=== PATIENT | female | born 1990 | race Caucasian/White ===

== ENCOUNTER 2018-01-08 16:56 | Inpatient (IN) ==
[2018-01-08] MEDS ORDERED: 0.9 % SODIUM CHLORIDE 1,000 ML IV ONE ×2 (17:15→18:08)
[2018-01-08 18:30] LABS: Basophils # (Auto) 0 K/mcL (0.0-0.3); Basophils % (Auto) 0.4 % (0.0-2.0); Eosinophils # (Auto) 0.1 K/mcL (0.0-0.7); Eosinophils % (Auto) 1.2 % (0.0-7.0); Granulocytes % (Auto) 64.1 % (38.0-78.0); Lymphocytes # (Auto) 1.7 K/mcL (1.5-4.8); Lymphocytes % (Auto) 28.2 % (15.5-49.0); Mean Cell Volume 85.2 fL (80.0-100.0); Mean Corpuscular HGB Conc 33.9 g/dL (31.0-36.0); Mean Corpuscular Hemoglobin 28.9 pg (26.0-34.0); Monocytes # (Auto) 0.4 K/mcL (0.1-0.9); Monocytes % (Auto) 6.1 % (1.0-12.0); Platelet Count 216 K/mcL (140-440); RBC 5.32 M/mcL (4.00-5.20)
--- NOTE | 2018-01-08 18:43 | Emergency Department Note ---
General Adult HPI - General Chief complaint: Recheck/Abnormal Lab/Rx Stated complaint: Rhabdo last week, labs drawn this am. Time Seen by Provider: 01/08/18 17:36 Source: patient, family Mode of arrival: ambulatory Limitations: no limitations - History of Present Illness HPI Narrative: 27-year-old female comes in complaining of elevated CK. 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 She felt like she never recovered from school and continued to have worsening weakness and pain with the fatigue so she went saw her doctor on December 23 and they ordered labs. The laboratory did get back to the primary care provider in time and so on December 29 she had a going to the ER at [place] was found to have elevated EKG 18,000 or so. They put her in the hospital for rhabdomyolysis and she left December 31 as it was trending down to 13,000. Should follow-up on 01 05 and he checked it again and it had gone back up to 15,000 or so. The repeated one more time and then today they checked it here at our lab at the request of Dr. Maria E Araujo there in [place]. That CMP they ordered showed an AST of 677 and ALT of 317 with otherwise normal CMP with a creatinine of 0.6 and a GFR of 127 but her CK showed 18,836-these labs were done here today as an outpatient. She was advised to come to our ER as she has been staying with her parents in [place] while she recuperates She denies any previous episodes of this nor does she have any underlying known rheumatologic conditions. She does have a rash on her thighs she says but nothing on her hands-the rash she said is just a few small papules which are sort of itchy. No family history of rheumatologic conditions either. Denies feeling ill mainly just fatigued with muscle pain. Her muscles are painful to touch only if she tries to move them - Related Data Home Medications Medication Instructions Recorded Confirmed Albuterol Sulfate [Ventolin] 1 puff INH Q4HP PRN 01/08/18 01/08/18 Amitriptyline [Elavil] 10 mg PO HS 01/08/18 01/08/18 Ethinyl Estradiol/Drospirenone 1 each PO QDAY 01/08/18 01/08/18 [Ocella 3 mg-0.03 mg Tablet] Fluticasone/Salmeterol 1 spray NS QDAY 01/08/18 01/08/18 [Fluticasone-Salmeterol 55-14] Allergies Allergy/AdvReac Type Severity Reaction Status Date / Time hydrocodone Allergy Severe Vomiting Verified 01/08/18 17:05 Review of Systems All systems ED: reviewed and negative except as stated. Past Medical History - Past Medical History Attestation: Yes: The following information was validated with the patient. Medical history: Reports: asthma, other (Irritable bowel syndrome) Surgical history ED: Reports: no surgical history - Social History smoking status: Never smoker Physical Exam No acute distress fatigued resting comfortably. Normocephalic atraumatic. Conjunctive are clear sclerae white and nonicteric. No nasal discharge or congestion. Oropharynx pink and moist. Neck is supple without lymphadenopathy or thyromegaly. Heart is regular rate and rhythm no murmur appreciated. Lungs are clear to auscultation bilaterally without wheezes rales rhonchi or respiratory distress. Abdomen is soft nontender nondistended. No pedal edema. +2 radial pulse. With active movement of the shoulders and hips she has pain resisting against gravity but no pain at rest. I do not see any rash on her hands or arms or lower legs. Alert and oriented Limitations: no limitations Course Vital Signs Temperature 97.5 F 01/08/18 16:58 Pulse Rate 112 H 01/08/18 16:58 Respiratory Rate 18 01/08/18 16:58 Blood Pressure 148/96 01/08/18 16:58 Pulse Oximetry (%) 96 01/08/18 16:58 Temperature 97.5 F 01/08/18 16:58 Pulse Rate 97 H 01/08/18 18:31 Respiratory Rate 19 01/08/18 18:31 Blood Pressure 119/75 01/08/18 18:31 Pulse Oximetry (%) 98 01/08/18 18:31 Medical Decision Making - Lab Data Lab results reviewed: Yes I reviewed the patient's lab results. Result diagrams: 01/08/18 18:08 Lab Results 01/08/18 01/08/18 01/08/18 Range/Units 18:08 18:38 18:41 WBC 6.1 (4.5-11.0) K/mcL RBC 5.32 H (4.00-5.20) M/mcL Hgb 15.4 H (12.0-15.0) g/dL Hct 45.3 (36.0-48.0) % MCV 85.2 (80.0-100.0) fL MCH 28.9 (26.0-34.0) pg MCHC 33.9 (31.0-36.0) g/dL RDW 13.0 (11.5-14.5) % Plt Count 216 (140-440) K/mcL MPV 10.3 (7.4-10.4) fL Gran % 64.1 (38.0-78.0) % Lymph % (Auto) 28.2 (15.5-49.0) % [place] % (Auto) 6.1 (1.0-12.0) % Eos % (Auto) 1.2 (0.0-7.0) % Baso % (Auto) 0.4 (0.0-2.0) % Gran # 3.9 (1.8-8.0) K/mcL Lymph # (Auto) 1.7 (1.5-4.8) K/mcL [place] # (Auto) 0.4 (0.1-0.9) K/mcL Eos # (Auto) 0.1 (0.0-0.7) K/mcL Baso # (Auto) 0 (0.0-0.3) K/mcL C-Reactive Protein 1.7 H (0.0-0.8) mg/dl Urine Color Yellow Urine Appearance Clear Urine pH 6.0 (5.0-9.0) Ur Specific [place] 1.012 (1.000-1.035) Urine Protein 30 A (NEG) mg/dL Urine Glucose (UA) Negative (NEG) mg/dL Urine Ketones Neg (NEG) mg/dL Urine Occult Blood 0.2 A (<0.03) mg/dL Urine Nitrate Neg (NEG) Urine Bilirubin Neg (NEG) mg/dL Urine Urobilinogen Neg (NEG) mg/dL Ur Leukocyte Esterase 25 A (NEG) /uL Urine RBC < 1 (0-1) /hpf Urine WBC 2 (0-4) /hpf Ur Squamous Epith Cells 3 (0-4) /hpf Amorphous Crystals Few A (0) /hpf Urine Bacteria Few A (0) /hpf Ur Culture Indicated? Yes Reviewed laboratory from this morning which showed a normal CMP except for an AST of 677 and ALT of 317 the CK from this morning was 18,836 Disposition Pt seen by SIGNS CLEANER/PA only: No Clinical Impression: Myositis Qualifiers: Myositis type: unspecified type Myositis location: multiple sites Qualified Code(s): M60.9 - Myositis, unspecified UTI (urinary tract infection) Qualifiers: Urinary tract infection type: acute cystitis Hematuria presence: without hematuria Qualified Code(s): N30.00 - Acute cystitis without hematuria Summary: I discussed the case with Dr. Uribe who agreed to accept the patient for admission. He recommended I discussed the case with Dr. Ortega our floral manager. Dr. Ortega agreed that it sounded likely to be a myositis or myopathy of some kind and recommended getting an MRI of the thighs before starting steroids. He noted that she may need an EMG or muscle biopsy to further sort this out. he said that he would see this patient as an outpatient next week or so if needed. Patient will be admitted for further IV hydration to prevent rhabdomyolysis in the setting of severe CK elevation Started Rocephin for incidentally noted UTI Disposition: Xfer As Inpt ([facility]) Condition: Fair Referrals: No,PCP [Primary Care Provider] -
[2018-01-08 19:11] LABS: C-Reactive Protein 1.7 mg/dl (0.0-0.8)
[2018-01-08 19:30] LABS: Appearance,Urine CLEAR; Bacteria,Urine FEW /hpf (0); Bilirubin,Urine NEG (NEG); Color,Urine YELLOW; Glucose,Urine (UA) NEGATIVE (NEG); Leukocyte Esterase,Urine 25 /uL (NEG); Protein,Urine 30 mg/dL (NEG); Specific Gravity,Urine 1.012 (1.000-1.035); Urine Amorphous Crystals FEW /hpf (0); Urine Blood 0.2 mg/dL (<0.03); Urine RBC < 1 /hpf (0-1); Urine Squamous Epithelial Cell 3 /hpf (0-4); Urine WBC 2 /hpf (0-4); Urobilinogen,Urine NEG (NEG)
[2018-01-08] MEDS ORDERED: cefTRIAXone 1 GM VIAL IV ONE (19:46)
[2018-01-08] MEDS ORDERED: ACETAMINOPHEN 325 MG TABLET PO PRN (20:12)
[2018-01-08] MEDS ORDERED: ALBUTEROL SULFATE 1 PUFF INHALER INH PRN (20:12)
[2018-01-08] MEDS ORDERED: NALOXONE HCL 0.4 MG/ML VIAL IV PRN (20:12)
[2018-01-08] MEDS ORDERED: ONDANSETRON 4 MG/2 ML VIAL IV PRN (20:12)
[2018-01-08] MEDS: 0.9 % SODIUM CHLORIDE 1,000 ML IV SCH (20:30)
[2018-01-08 21:10] LABS: Amphetamine Screen,Urine NONE DETECTED (NONDETECTED); Benzodiazepines Screen,Urine NONE DETECTED (NONDETECTED); Cocaine Screen,Urine NONE DETECTED (NONDETECTED); Opiate Screen,Urine NONE DETECTED (NONDETECTED); Oxycodone, Urine Screen NONE DETECTED (NONDETECTED)
[2018-01-08 21:26] LABS: Complement C3 143.1 mg/dl (90-180)
[2018-01-08 21:29] LABS: ALT/SGPT 282 U/l (0-40); Albumin 3.1 gm/dL (3.2-5.2); Albumin/Globulin Ratio 1.1 (1.0-2.3); Alkaline Phosphatase 56 U/L (39-117); Bilirubin,Direct < 0.2 mg/dL (0.0-0.3); Blood Urea Nitrogen 6 mg/dl (6-20); Gamma Glutamyl Transpeptidase 16 U/L (5-36); Uric Acid 3.4 mg/dL (2.5-8.0)
[2018-01-08] MEDS ORDERED: oxyCODONE HCL 5 MG TABLET PO PRN (21:39)
[2018-01-08 21:43] LABS: Creatine Kinase 16738 IU/L (24-170)
--- NOTE | 2018-01-08 21:44 | Internal Med History&Physical ---
Medical - H&P: HPI Patient information: Note initiated : 01/08/18 at 9:41 pm Service Date, if different from initiated Date: [] Patient: Shreya Panchal a 27 y/o F admitted on 01/08/18 for Rhabdo last week, labs drawn this am.. Chief Complaint: [] History of present illness: Ms. Panchal is a 27 year old F with h/o IBS, on amitryptline for same, presents to the ER today at the recommendation of her PCP. 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 Her muscle aches, pains, fatigue did not go away, she has stifness in the mornings in the shoulders, neck and upper back, she has pain and weakness in both shoulders, she was finding it difficult to comb her own hair, and get dressed by self. Her symptoms got progressively worse throughout the month of November and she decided to seek help at the end of the month. Her primary care physician ordered some labs, noted that she had elevated LFTs, and also elevated CK values, she was admitted to the hospital with a diagnosis of rhabdomyolysis, her CK was around 20,000. She notes she also had a CT scan of the abdomen done the results of which she does not know. The patient was treated with fluids, CK values improved to 13,000, she felt a little bit better but the mild GI stiffness and weakness mostly present. After she was discharged from the hospital the symptoms continued and she continued to drink fluids, she did not go out in the heat. The patient had a repeat lab done which showed her CK had increased she was advised to drink fluids and recheck her CK. The patient came to live with the parents, it was noted that her repeat CK was again 18,000 and she was asked to come to the hospital for further management. The patient notes she has no difficulty in using her fingers are fine motor skills is intact the predominant problem she has is involving the shoulder region and upper back. She also has difficulty in getting up from the sitting position there is pain in both her thighs. She has noticed increase roughness in the fingertips, and some flaking of the skin around her nails. She has noticed rash on her thighs. The patient denies any fever chills headache changes in vision double vision no difficulty in swallowing the patient denies any cough no acute shortness of breath or chest pain no nausea no vomiting no acute abdominal pain no diarrhea constipation no arthralgia sites mentioned above. The patient had been camping once however notes that her symptoms predate the day of camping. The patient denies any use of [id number] medications and herbal supplements for weight loss or any other purpose. The patient has been diagnosed with IBS and she takes amitriptyline for same, she also has been taking OC pills. These medications are not new. The patient takes lactase for lactic acid intolerance. The patient has a history of asthma uses albuterol as needed. The patient had a CK level of around 18,000, repeat CK checked showed CK around 16,000 she has elevated LFTs, patient is being admitted to the hospital for further evaluation and management case was reviewed with Dr. Ortega rheumatology by the ER. All systems: reviewed and no additional remarkable complaints except as stated ( as per hpi rest neg) Medical - H&P: PMH Medical history: IBS Overweight Asthma Surgical history: none Family history: reviewed and not pertinent (No h/o autoimmune disease in family) Social history: non smoker, social etoh no recreational drug use Medical - H&P: Meds Home Medications Medication Instructions Recorded Confirmed Type Albuterol Sulfate [Ventolin] 1 puff INH Q4HP PRN 01/08/18 01/08/18 History Amitriptyline [Elavil] 10 mg PO HS 01/08/18 01/08/18 History Ethinyl Estradiol/Drospirenone 1 tab PO QDAY 01/08/18 01/08/18 History [Ocella 3 mg-0.03 mg Tablet] Fluticasone/Salmeterol 1 spray NS QDAY 01/08/18 01/08/18 History [Fluticasone-Salmeterol 55-14] L.acidoph,Paracasei, B.lactis 1 each PO 3XW 01/08/18 01/08/18 History [Probiotic] Lactase [Lactaid Fast Act] 1 - 2 cap PO DAILYP PRN 01/08/18 01/08/18 History Multivitamin [One Daily 1 tab PO DAILY 01/08/18 01/08/18 History Multivitamin] Allergies Allergy/AdvReac Type Severity Reaction Status Date / Time hydrocodone Allergy Severe Vomiting Verified 01/08/18 17:05 Medical - H&P: Exam - Constitutional Vitals: Temp Pulse Resp BP Pulse Ox 97.8 F 97 H 20 137/85 97 01/08/18 20:28 01/08/18 20:28 01/08/18 20:28 01/08/18 20:28 01/08/18 20:28 Exam: GENERAL: The patient is a well-developed, well-nourished in no apparent distress. Is alert and oriented x3. VITAL SIGNS: Reviewed and as noted elsewhere. HEENT: Head is normocephalic and atraumatic. Extraocular muscles are intact. Pupils are equal, round, and reactive to light. Nares appeared normal. Mouth appears any without lesions. Mucous membranes are moist. NECK: Normal to inspection, Supple, No lymphadenopathy or thyromegaly. LUNGS: Air entry equal on both sides, no wheezing, crackles or rhonchi noted. No accessory muscles of respiration HEART: Regular rate and rhythm normal, S1 and S2 heard, no Gallop, S3 or Rub Noted, No Gross murmur heard. ABDOMEN: Soft, nontender, and nondistended. Positive bowel sounds. No hepatosplenomegaly was noted. EXTREMITIES: No cyanosis, clubbing, rash, lesions or edema. tendernss present on deep palpatio to thigh muscles. NEUROLOGIC: Cranial nerves II through XII are grossly intact. Motor and Sensory System Grossly Intact PSYCHIATRIC: Normal affect, Normal Mood. Appropriate Behavior. SKIN: No ulceration or wounds noted, No jaundice, , bilateral erythematous, rash on bilateral thighs, some fingers on hand have increased periuncal erythema. Medical - H&P: Reslt - Labs CBC & Chem 7: 01/08/18 18:08 01/08/18 18:41 Labs: Short CBC 01/08/18 Range/Units 18:08 WBC 6.1 (4.5-11.0) K/mcL Hgb 15.4 H (12.0-15.0) g/dL Hct 45.3 (36.0-48.0) % Plt Count 216 (140-440) K/mcL BMP 01/08/18 18:41 Sodium 138 Potassium 3.8 Chloride 105 Carbon Dioxide 20 L BUN 6 Creatinine 0.4 L Glucose 86 Calcium 7.9 L Liver Function 01/08/18 Range/Units 18:41 Total Bilirubin 0.2 (0.0-1.0) mg/dL Direct Bilirubin < 0.2 (0.0-0.3) mg/dL GGT 16 (5-36) U/L AST 630 H (0-37) U/l ALT 282 H (0-40) U/l Alkaline Phosphatase 56 (39-117) U/L Albumin 3.1 L (3.2-5.2) gm/dL Urine 01/08/18 Range/Units 18:38 Urine Color Yellow Urine Appearance Clear Urine pH 6.0 (5.0-9.0) Ur Specific [place] 1.012 (1.000-1.035) Urine Protein 30 A (NEG) mg/dL Urine Glucose (UA) Negative (NEG) mg/dL Medical - H&P: A/P - Narrative A/P Narrative: A/P Rhabdomyolysis/ Myositis- esr and crp mildly elevated, but CK is persistently high, clinical has proximal muscle weakness, some rash, which suggest inflammatory myositis. exercise induced myopathy? should not last this long after her exercise/ test was done, pt denies doing any strenuous activity or working in heat. no drugs that would cause this, no viral syndrome or infection , Will review case with rheumatology again, oxycodone low dose for pain management, IV fluids, with goal urine output of 150-200cc/hr, trend ck daily, check lytes. get cxr chest, get MRI bilateral thighs, if inflammation noted, will get muscle biopsy, and then start patient on prednisone after bx, tsh pending asthma- prn albuterol dvt hep sq Regular diet Medical - H&P: Qual - VTE Deep Vein Thrombosis/Pulmonary Embolism Present on Admission: No
[2018-01-08] MEDS: AMITRIPTYLINE 10 MG TABLET PO SCH (22:29)
[2018-01-08] MEDS: HEPARIN 5,000 UNIT/ML VIAL SQ SCH (22:29)
[2018-01-08] MEDS ORDERED: oxyCODONE HCL 5 MG TABLET PO ONE (22:31)
[2018-01-08] MEDS: 0.9 % SODIUM CHLORIDE 10 ML SYRINGE IV SCH (22:32)
[2018-01-09] MEDS: 0.9 % SODIUM CHLORIDE 1,000 ML IV SCH ×5 (01:30→21:54)
[2018-01-09] MEDS: 0.9 % SODIUM CHLORIDE 10 ML SYRINGE IV SCH ×3 (05:34→21:58)
[2018-01-09 06:32] LABS: Hepatitis A Antibody IgM NON REACTIVE (NEGATIVE); Hepatitis B Surface Antibody NEGATIVE (NEGATIVE); Hepatitis B Surface Antigen NEGATIVE (NEGATIVE); Hepatitis C Virus Antibody NON REACTIVE (NEGATIVE)
[2018-01-09 06:38] LABS: ALT/SGPT 259 U/l (0-40); Albumin 3.1 gm/dL (3.2-5.2); Albumin/Globulin Ratio 1.3 (1.0-2.3); Alkaline Phosphatase 52 U/L (39-117); Bilirubin,Direct < 0.2 mg/dL (0.0-0.3); Blood Urea Nitrogen 6 mg/dl (6-20); Gamma Glutamyl Transpeptidase 14 U/L (5-36); Uric Acid 3.1 mg/dL (2.5-8.0)
[2018-01-09 06:43] LABS: HIV1/2 AG/AB 4TH Generation NON-REACTIVE
[2018-01-09 08:41] LABS: Free T4 (Free Thyroxine) 1.19 ng/dl (0.7-1.7)
[2018-01-09] MEDS ORDERED: FLUTICASONE SALMETEROL NAS SCH (09:00)
[2018-01-09] MEDS ORDERED: FUROSEMIDE 20 MG/2 ML VIAL IV ONE (09:18)
[2018-01-09] MEDS: HEPARIN 5,000 UNIT/ML VIAL SQ SCH ×2 (10:15→20:59)
[2018-01-09] MEDS: OCELLA PO SCH (10:27)
[2018-01-09] MEDS ORDERED: PANTOPRAZOLE 40 MG PACKET PO SCH (13:49)
--- NOTE | 2018-01-09 13:49 | Internal Med Progress Note ---
Medical - PN: Subj Patient information: Note initiated : 01/09/18 at 1:42 pm Service Date, if different from initiated Date: [] Patient: Shreya Panchal a 27 y/o F admitted on 01/08/18 for Rhabdo last week, labs drawn this am.. Chief Complaint: [] Interval history: Ms. Panchal is a 27 year old F with h/o IBS, on amitryptline for same, presents to the ER today at the recommendation of her PCP. 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 Her muscle aches, pains, fatigue did not go away, she has stifness in the mornings in the shoulders, neck and upper back, she has pain and weakness in both shoulders, she was finding it difficult to comb her own hair, and get dressed by self. Her symptoms got progressively worse throughout the month of November and she decided to seek help at the end of the month. Her primary care physician ordered some labs, noted that she had elevated LFTs, and also elevated CK values, she was admitted to the hospital with a diagnosis of rhabdomyolysis, her CK was around 20,000. She notes she also had a CT scan of the abdomen done the results of which she does not know. The patient was treated with fluids, CK values improved to 13,000, she felt a little bit better but the mild GI stiffness and weakness mostly present. After she was discharged from the hospital the symptoms continued and she continued to drink fluids, she did not go out in the heat. The patient had a repeat lab done which showed her CK had increased she was advised to drink fluids and recheck her CK. The patient came to live with the parents, it was noted that her repeat CK was again 18,000 and she was asked to come to the hospital for further management. The patient notes she has no difficulty in using her fingers are fine motor skills is intact the predominant problem she has is involving the shoulder region and upper back. She also has difficulty in getting up from the sitting position there is pain in both her thighs. She has noticed increase roughness in the fingertips, and some flaking of the skin around her nails. She has noticed rash on her thighs. The patient denies any fever chills headache changes in vision double vision no difficulty in swallowing the patient denies any cough no acute shortness of breath or chest pain no nausea no vomiting no acute abdominal pain no diarrhea constipation no arthralgia sites mentioned above. The patient had been camping once however notes that her symptoms predate the day of camping. The patient denies any use of [id number]-[id number] medications and herbal supplements for weight loss or any other purpose. The patient has been diagnosed with IBS and she takes amitriptyline for same, she also has been taking OC pills. These medications are not new. The patient takes lactase for lactic acid intolerance. The patient has a history of asthma uses albuterol as needed. The patient had a CK level of around 18,000, repeat CK checked showed CK around 16,000 she has elevated LFTs, patient is being admitted to the hospital for further evaluation and management case was reviewed with Dr. Ortega rheumatology by the ER. 01/09 Pt seen examined, [place] [address]/s proximal muscle weakness present on ivf pt would like to be without the plunkett MRI reviewed, mary inflammation/ edema cxr interpreted as normal plan of care reviewed with pt and family good urine output noted, IV lasix x [address] reviewed from outside hospital, neg for liver pathology hiv, hepatitis a b and c is negative Pertinent ROS: Denies headache, dizziness Denies chest pain, palpitations Denies cough or shortness of breath Denies abdominal pain, prseent some nausea no vomiting. - Constitutional Vitals: Vital Signs Temp Pulse Resp BP Pulse Ox 98.2 F 88 20 126/78 97 01/09/18 12:00 01/09/18 03:51 01/09/18 12:00 01/09/18 12:00 01/09/18 12:00 Period Temp Pulse Resp BP Sys/An Pulse Ox Last 24 Hr 97.5 F-98.5 F 88-112 15-21 117-148/65-96 96-100 Intake and Output 01/08/18 01/09/18 01/09/18 21:59 05:59 13:59 Intake Total 1999 / 1999 1150 / 1150 1989 / 1989 Output Total 400 / 400 1300 / 1300 3100 / 3100 Balance 1600 / 1600 -150 / -150 -1110 / -1110 Weight 198 lb 198 lb Patient Weight 01/10/18 05:59 Weight 198 lb Intake & Output: Intake & Output 01/08/18 01/09/18 01/09/18 21:59 05:59 13:59 Intake Total 1999 1150 / 1150 1989 Output Total 400 / 400 1300 / 1300 3100 / 3100 Balance 1600 / 1600 -150 / -150 -1110 / -1110 Weight 198 lb 198 lb Intake: IV 1999 Sodium Chloride 0.9% 1,000 ml @ 1999 200 mls/hr IV .Q5H ABRAHAM Rx#: [id number] Oral 150 / 150 Output: Urine Catheter Amount 1300 / 1300 3100 / 3100 Void Amount 400 / 400 Other: Meal Breakfast Percent of Meal Consumed 100% Urine Appearance Uretheral ([place]) Clear Urine Color Bright Yellow Uretheral ([place]) Bright Yellow Exam: Constitutional; Afebrile, cooperative, alert, not in distress. Eyes- No icterus, , No periorbital swelling Ears- Ext ear normal, hearing normal to conversation. Neck- Midline trachea, supple Respiratory system: Air Entry equal on both sides, No crackles or wheezing, no rhonchi. CVS- Rate rhythm regular, S1,S2 heard, no gallop, no rub. Abdomen- Soft nontender abdomen, no organomegaly, no tenderness, no guarding or rigidity, MITER SAWYER- AOOx3, moving all extremities, no gross focal deficit noted. 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 Medical - PN: Obj Da - Labs CBC & Chem 7: 01/08/18 18:08 01/09/18 04:20 Labs: Abnormal Lab Results 01/09/18 01/09/18 01/08/18 04:20 04:20 20:27 RBC Hgb ESR Chloride 110 H Carbon Dioxide Creatinine 0.4 L Calcium 8.1 L AST 557 H ALT 259 H Lactate Dehydrogenase 800 H Total Creatine Kinase 98146 H C-Reactive Protein Total Protein 5.4 L Albumin 3.1 L Triglycerides 285 H TSH 8.12 H Urine Protein Urine Occult Blood Ur Leukocyte Esterase Amorphous Crystals Urine Bacteria 01/08/18 01/08/18 01/08/18 18:41 18:41 18:41 RBC Hgb ESR 23 H Chloride Carbon Dioxide 20 L Creatinine 0.4 L Calcium 7.9 L AST 630 H ALT 282 H Lactate Dehydrogenase 864 H Total Creatine Kinase 96819 H C-Reactive Protein 1.7 H Total Protein 5.8 L Albumin 3.1 L Triglycerides 190 H TSH Urine Protein Urine Occult Blood Ur Leukocyte Esterase Amorphous Crystals Urine Bacteria 01/08/18 01/08/18 18:38 18:08 RBC 5.32 H Hgb 15.4 H ESR Chloride Carbon Dioxide Creatinine Calcium AST ALT Lactate Dehydrogenase Total Creatine Kinase C-Reactive Protein Total Protein Albumin Triglycerides TSH Urine Protein 30 A Urine Occult Blood 0.2 A Ur Leukocyte Esterase 25 A Amorphous Crystals Few A Urine Bacteria Few A Meds: Medications Acetaminophen (Tylenol) 650 mg PO Q6HP PRN PRN Reason: PAIN/FEVER > 101 Albuterol Sulfate (Ventolin) 1 puff INH Q4HP PRN PRN Reason: Shortness Of Breath Amitriptyline HCl (Elavil) 10 mg PO HS [facility] Last Admin: 01/08/18 22:29 Dose: 10 mg Heparin Sodium (Porcine) (Heparin) 5,000 unit SQ Q12 [facility] Last Admin: 01/09/18 10:15 Dose: 5,000 unit Sodium Chloride (Sodium Chloride 0.9%) 1,000 mls @ 200 mls/hr IV .Q5H [facility] Last Admin: 01/09/18 13:02 Dose: 200 mls/hr Naloxone HCl (Narcan) 0.1 mg IV Q2MIN PRN PRN Reason: Opiate Reversal Ondansetron HCl (Zofran) 4 mg IV Q6HP PRN PRN Reason: Nausea And Vomiting Oxycodone HCl (Roxicodone) 2.5 - 5 mg PO Q6HP PRN PRN Reason: Pain Ocella 3 Mg-0.03 Mg (Tab) 1 dose PO DAILY [facility] Last Admin: 01/09/18 10:27 Dose: 1 dose Fluticasone- Salmeterol Nasal [place] 1 dose FISH DAILY [facility] Sodium Chloride (Saline Flush) 10 ml IV Q8 [facility] Last Admin: 01/09/18 05:34 Dose: Not Given Medical - PN: A/P - Time Spent With Patient Total time spent is greater than 50% in coordination of care (as documented) at patient's floor/unit and/or counseling patient: - Narrative A/P Narrative: A/P Rhabdomyolysis/ Myositis- 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 rheum consult on thursday. continue IVF< creat stable, lft stable, no liver pathology on Ct, hepatitis neg , hiv negative tsh mildly levated but t3, and t4 ok await serologies, add rheumatoid factor and anti ccp to workup asthma- prn albuterol no wheezing. dvt hep sq Regular diet Medical - PN: Qual - VTE Deep Vein Thrombosis/Pulmonary Embolism Present on Admission: No
--- NOTE | 2018-01-09 15:07 | Magnetic Resonance Report ---
History: Myositis in the thighs with extreme muscle weakness TECHNIQUE: Multiplanar imaging was performed using multiple pulse sequences. FINDINGS: The STIR and T2-weighted images demonstrate abnormal bright signal in the muscles throughout both thighs. This is a symmetric pattern and involves all muscle groups. Muscles are not abnormally enlarged and there is no focal tear. The inflammatory change extends from the hips to the lower thigh. There is normal signal in bone marrow. No joint effusion is present within the hips. Subcutaneous fat is normal without evidence of edema. No adenopathy is present in the groin. IMPRESSION: Severe edema/ inflammatory changes in the muscles throughout both thighs. This may be due to rhabdomyolysis, polymyositis, connective tissue disease such as lupus, denervation syndrome or granulomatous myositis. The absence of skin findings would make dermatomyositis a less likely consideration. Interpreted and Authenticated by: Jaun Licona 01/09/18
[2018-01-09] MEDS ORDERED: methylPREDNISolone SOD SUCC 1,000 MG in 0.9 % SODIUM CHLORIDE 100 ML IV SCH (15:21)
--- NOTE | 2018-01-09 15:29 | XRay Report ---
HISTORY: Extreme muscle weakness FINDINGS: The lungs are clear. The heart, mediastinum, kristina and pleura are normal. IMPRESSION: Normal chest. Interpreted and Authenticated by: Jaun Licona 01/09/18
[2018-01-09] MEDS ORDERED: 0.9 % SODIUM CHLORIDE 500 ML IV ONE (17:03)
[2018-01-09 17:40] LABS: Blood Urea Nitrogen 7 mg/dl (6-20)
[2018-01-09] MEDS ORDERED: POTASSIUM CHLORIDE 40 MEQ in DEXTROSE 5% IN WATER 500 ML IV ONE (17:43)
[2018-01-09 17:52] LABS: Creatine Kinase 15394 IU/L (24-170)
[2018-01-09] MEDS ORDERED: LACTASE 9000 UNIT PO PRN (18:05)
[2018-01-09] MEDS: AMITRIPTYLINE 10 MG TABLET PO SCH (20:59)
[2018-01-10] MEDS: 0.9 % SODIUM CHLORIDE 1,000 ML IV SCH ×4 (03:53→18:06)
[2018-01-10] MEDS: 0.9 % SODIUM CHLORIDE 10 ML SYRINGE IV SCH ×3 (05:06→21:10)
[2018-01-10 06:05] LABS: ALT/SGPT 247 U/l (0-40); Alkaline Phosphatase 52 U/L (39-117); Bilirubin,Direct < 0.2 mg/dL (0.0-0.3); Blood Urea Nitrogen 7 mg/dl (6-20); C-Reactive Protein 1.4 mg/dl (0.0-0.8); Gamma Glutamyl Transpeptidase 16 U/L (5-36); Uric Acid 3.3 mg/dL (2.5-8.0)
[2018-01-10] MEDS: oxyCODONE HCL 5 MG TABLET PO PRN ×3 (10:24→16:05)
[2018-01-10] MEDS: OCELLA PO SCH (10:45)
[2018-01-10] MEDS: PANTOPRAZOLE 40 MG TABLET PO SCH (10:46)
[2018-01-10] MEDS: FLUTICASONE PROPIONATE SPRAY.NAS NS SCH (10:48)
[2018-01-10] MEDS: MULTIVIT,THER IRON,CA,FA & MIN 1 TABLET PO SCH (10:49)
[2018-01-10] MEDS: HEPARIN 5,000 UNIT/ML VIAL SQ SCH ×2 (12:27→21:18)
--- NOTE | 2018-01-10 13:09 | General Surgery Consult Note ---
History of Present Illness Patient information: Note initiated : 01/10/18 at 1:08 pm Service Date, if different from initiated Date: [] Patient: Shreya Panchal 27 y/o F admitted on 01/08/18 for Rhabdo last week, labs drawn this am.. Chief Complaint: [] Reason for consult: other Requesting physician: Jerrell Uribe History of present illness: 27-year-old female who is admitted for treatment of diffuse muscle pain with proximal muscle weakness which has been progressive since October. Patient underwent training for [employer] in [place] in September and October. She had muscle soreness and weakness after the exercise and it Continued since that time. She was evaluated and was noted to have markedly elevated CPK. She was vigorously hydrated and it trended down some but has continued to be elevated to 16,000. She had MRI of her femur which showed diffuse inflammatory changes from buttocks to lower thigh compatible with probable myositis. I am consulted to do a muscle biopsy. I have discussed this with the patient and she is scheduled to have the biopsy done tomorrow at noon. She has not had similar episodes in the past and does not remember having the weakness that she now has prior to the exercise activity that she underwent in September and October. Review of Systems - Constitutional as per HPI Past History Past medical history: no significant chronic medical illness Past surgical history: No operative procedures Medications and Allergies Home Medications Medication Instructions Recorded Confirmed Type Albuterol Sulfate [Ventolin] 1 puff INH Q4HP PRN 01/08/18 01/08/18 History Amitriptyline [Elavil] 10 mg PO HS 01/08/18 01/08/18 History Ethinyl Estradiol/Drospirenone 1 tab PO QDAY 01/08/18 01/08/18 History [Ocella 3 mg-0.03 mg Tablet] Fluticasone/Salmeterol 1 spray NS QDAY 01/08/18 01/08/18 History [Fluticasone-Salmeterol 55-14] L.acidoph,Paracasei, B.lactis 1 each PO 3XW 01/08/18 01/08/18 History [Probiotic] Lactase [Lactaid Fast Act] 1 - 2 cap PO DAILYP PRN 01/08/18 01/08/18 History Multivitamin [One Daily 1 tab PO DAILY 01/08/18 01/08/18 History Multivitamin] Allergies Allergy/AdvReac Type Severity Reaction Status Date / Time hydrocodone Allergy Severe Vomiting Verified 01/08/18 17:05 Exam Temp Pulse Resp BP Pulse Ox 98.3 F 97 H 20 132/84 96 01/10/18 11:54 01/10/18 03:50 01/10/18 11:54 01/10/18 11:54 01/10/18 11:54 - Neck no masses, no bruits, trachea midline, no lymphadectomy, no venous distension - Cardiovascular Cardiovascular exam IM: Present: normal rate and rhythm, RRR, +S1, +S2. Absent : JVD, tachycardia - Respiratory normal expansion, normal respiratory effort, clear to auscultation - Abdomen Abdomen: Present: soft, non tender. Absent: organomegaly, guarding, distended - Integumentary Absent: no rash, no growths, no abnormal pigmentation - Neurologic Present: other (significant proximal muscle weakness in upper extremities involving shoulder girdle and in lower extremities involving hips and thighs) - Musculoskeletal Present: other ( mild tenderness to palpation of muscles of both thighs but not other muscle groups) - Psychiatric Present: oriented to time, oriented to person, oriented to place, speech is normal, memory intact, other ( patient appears to be mildly depressed) Results - Labs 01/08/18 18:08 01/10/18 04:13 Abnormal lab results 01/09/18 01/10/18 01/10/18 Range/Units 16:30 04:13 04:13 ESR (0-20) mm/hr Potassium 3.2 L (3.3-5.1) mmol/L Chloride 109 H (96-108) mmol/L Carbon Dioxide 21 L 19 L (22-30) mmol/L Creatinine 0.4 L 0.4 L (0.6-1.1) mg/dl Glucose 137 H (70-105) mg/dL Calcium 8.3 L (8.6-10.4) mg/dl AST 475 H (0-37) U/l ALT 247 H (0-40) U/l Lactate Dehydrogenase 767 H (94-250) U/L Total Creatine Kinase 28137 H 16987 H (24-170) IU/L C-Reactive Protein 1.4 H (0.0-0.8) mg/dl Albumin 3.0 L (3.2-5.2) gm/dL Triglycerides 200 H (<150) mg/dl 01/10/18 Range/Units 04:13 ESR 30 H (0-20) mm/hr Potassium (3.3-5.1) mmol/L Chloride (96-108) mmol/L Carbon Dioxide (22-30) mmol/L Creatinine (0.6-1.1) mg/dl Glucose (70-105) mg/dL Calcium (8.6-10.4) mg/dl AST (0-37) U/l ALT (0-40) U/l Lactate Dehydrogenase (94-250) U/L Total Creatine Kinase (24-170) IU/L C-Reactive Protein (0.0-0.8) mg/dl Albumin (3.2-5.2) gm/dL Triglycerides (<150) mg/dl Diabetes panel 01/09/18 01/10/18 Range/Units 16:30 04:13 Sodium 141 139 (133-145) mmol/L Potassium 3.2 L 4.3 (3.3-5.1) mmol/L Chloride 109 H 107 (96-108) mmol/L Carbon Dioxide 21 L 19 L (22-30) mmol/L BUN 7 7 (6-20) mg/dl Creatinine 0.4 L 0.4 L (0.6-1.1) mg/dl Glucose 101 137 H (70-105) mg/dL Calcium 8.3 L 8.6 (8.6-10.4) mg/dl AST 475 H (0-37) U/l ALT 247 H (0-40) U/l Alkaline Phosphatase 52 (39-117) U/L Total Protein 5.9 (5.9-8.4) gm/dL Albumin 3.0 L (3.2-5.2) gm/dL Triglycerides 200 H (<150) mg/dl Calcium panel 01/09/18 01/10/18 Range/Units 16:30 04:13 Calcium 8.3 L 8.6 (8.6-10.4) mg/dl Phosphorus 3.5 (2.7-4.5) mg/dL Albumin 3.0 L (3.2-5.2) gm/dL Pituitary panel 01/09/18 01/10/18 Range/Units 16:30 04:13 Sodium 141 139 (133-145) mmol/L Potassium 3.2 L 4.3 (3.3-5.1) mmol/L Chloride 109 H 107 (96-108) mmol/L Carbon Dioxide 21 L 19 L (22-30) mmol/L BUN 7 7 (6-20) mg/dl Creatinine 0.4 L 0.4 L (0.6-1.1) mg/dl Glucose 101 137 H (70-105) mg/dL Calcium 8.3 L 8.6 (8.6-10.4) mg/dl Adrenal panel 01/09/18 01/10/18 Range/Units 16:30 04:13 Sodium 141 139 (133-145) mmol/L Potassium 3.2 L 4.3 (3.3-5.1) mmol/L Chloride 109 H 107 (96-108) mmol/L Carbon Dioxide 21 L 19 L (22-30) mmol/L BUN 7 7 (6-20) mg/dl Creatinine 0.4 L 0.4 L (0.6-1.1) mg/dl Glucose 101 137 H (70-105) mg/dL Calcium 8.3 L 8.6 (8.6-10.4) mg/dl Total Bilirubin 0.2 (0.0-1.0) mg/dL AST 475 H (0-37) U/l ALT 247 H (0-40) U/l Alkaline Phosphatase 52 (39-117) U/L Total Protein 5.9 (5.9-8.4) gm/dL Albumin 3.0 L (3.2-5.2) gm/dL All other labs normal. Assessment and Plan (1) Rhabdomyolysis Patient is counseled for muscle biopsy under anesthesia tomorrow. Arrangements have been made with the lab to make sure that the proper kit is available for preservation of the muscle specimen. Status: Acute (2) Disorder characterized by proximal limb muscle weakness Status: Acute
--- NOTE | 2018-01-10 14:28 | Internal Med Progress Note ---
Medical - PN: Subj Patient information: Note initiated : 01/10/18 at 2:26 pm Service Date, if different from initiated Date: [] Patient: Shreya Panchal a 27 y/o F admitted on 01/08/18 for Rhabdo last week, labs drawn this am.. Chief Complaint: [] Interval history: Ms. Panchal is a 27 year old F with h/o IBS, on amitryptline for same, presents to the ER today at the recommendation of her PCP. 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 Her muscle aches, pains, fatigue did not go away, she has stifness in the mornings in the shoulders, neck and upper back, she has pain and weakness in both shoulders, she was finding it difficult to comb her own hair, and get dressed by self. Her symptoms got progressively worse throughout the month of November and she decided to seek help at the end of the month. Her primary care physician ordered some labs, noted that she had elevated LFTs, and also elevated CK values, she was admitted to the hospital with a diagnosis of rhabdomyolysis, her CK was around 20,000. She notes she also had a CT scan of the abdomen done the results of which she does not know. The patient was treated with fluids, CK values improved to 13,000, she felt a little bit better but the mild GI stiffness and weakness mostly present. After she was discharged from the hospital the symptoms continued and she continued to drink fluids, she did not go out in the heat. The patient had a repeat lab done which showed her CK had increased she was advised to drink fluids and recheck her CK. The patient came to live with the parents, it was noted that her repeat CK was again 18,000 and she was asked to come to the hospital for further management. The patient notes she has no difficulty in using her fingers are fine motor skills is intact the predominant problem she has is involving the shoulder region and upper back. She also has difficulty in getting up from the sitting position there is pain in both her thighs. She has noticed increase roughness in the fingertips, and some flaking of the skin around her nails. She has noticed rash on her thighs. The patient denies any fever chills headache changes in vision double vision no difficulty in swallowing the patient denies any cough no acute shortness of breath or chest pain no nausea no vomiting no acute abdominal pain no diarrhea constipation no arthralgia sites mentioned above. The patient had been camping once however notes that her symptoms predate the day of camping. The patient denies any use of [id number] medications and herbal supplements for weight loss or any other purpose. The patient has been diagnosed with IBS and she takes amitriptyline for same, she also has been taking OC pills. These medications are not new. The patient takes lactase for lactic acid intolerance. The patient has a history of asthma uses albuterol as needed. The patient had a CK level of around 18,000, repeat CK checked showed CK around 16,000 she has elevated LFTs, patient is being admitted to the hospital for further evaluation and management case was reviewed with Dr. Ortega rheumatology by the ER. 01/09 Pt seen examined, [place] [address]/s proximal muscle weakness present on ivf pt would like to be without the plunkett MRI reviewed, mary inflammation/ edema cxr interpreted as normal plan of care reviewed with pt and family good urine output noted, IV lasix x [address] reviewed from outside hospital, neg for liver pathology hiv, hepatitis a b and c is negative 01/10 Pt seen examined no change in status ck trending down, 11K now esr 30 muscle strenght stable, no dysphagia reported some headache Pertinent ROS: Denies headache, dizziness Denies chest pain, palpitations Denies cough or shortness of breath Denies abdominal pain, nausea or vomiting. - Constitutional Vitals: Vital Signs Temp Pulse Resp BP Pulse Ox 98.3 F 97 H 20 132/84 96 01/10/18 11:54 01/10/18 03:50 01/10/18 11:54 01/10/18 11:54 01/10/18 11:54 Period Temp Pulse Resp BP Sys/An Pulse Ox Last 24 Hr 97.2 F-98.3 F 89-97 14-20 114-132/70-84 95-98 Intake and Output 01/10/18 01/10/18 01/10/18 05:59 13:59 21:59 Intake Total 1640 / 1640 1440 / 1440 Output Total 1600 / 1600 1250 / 1250 Balance 40 / 40 190 / 190 Intake & Output: Intake & Output 01/10/18 01/10/18 01/10/18 05:59 13:59 21:59 Intake Total 1640 / 1640 1440 / 1440 Output Total 1600 / 1600 1250 / 1250 Balance 40 / 40 190 / 190 Intake: IV 1520 / 1520 1000 / 1000 Sodium Chloride 0.9% 1,000 ml @ 1000 / 1000 1000 / 1000 200 mls/hr IV .Q5H [facility] Rx#: [id number] Oral 120 / 120 440 / 440 Output: Urine Catheter Amount 1600 / 1600 1250 / 1250 Other: Meal Lunch Percent of Meal Consumed 75% Feeding Ability Independent Urine Appearance Clear Urine Color Pale Bright Yellow Exam: Constitutional; Afebrile, cooperative, alert, not in distress. Eyes- No icterus, , No periorbital swelling Ears- Ext ear normal, hearing normal to conversation. Neck- Midline trachea, supple Respiratory system: Air Entry equal on both sides, No crackles or wheezing, no rhonchi. CVS- Rate rhythm regular, S1,S2 heard, no gallop, no rub. Abdomen- Soft nontender abdomen, no organomegaly, no tenderness, no guarding or rigidity, B[employer]- AOOx3, moving all extremities, no gross focal deficit noted. upper extreity proximal muscles 3+/4 /5 strength bilateally. Medical - PN: Obj Da - Labs CBC & Chem 7: 01/08/18 18:08 01/10/18 04:13 Labs: Abnormal Lab Results 01/10/18 01/10/18 01/10/18 04:13 04:13 04:13 RBC Hgb ESR 30 H Potassium Chloride Carbon Dioxide 19 L Creatinine 0.4 L Glucose 137 H Calcium AST 475 H ALT 247 H Lactate Dehydrogenase 767 H Total Creatine Kinase 04397 H C-Reactive Protein 1.4 H Total Protein Albumin 3.0 L Triglycerides 200 H TSH Urine Protein Urine Occult Blood Ur Leukocyte Esterase Amorphous Crystals Urine Bacteria 01/09/18 01/09/18 01/09/18 16:30 04:20 04:20 RBC Hgb ESR Potassium 3.2 L Chloride 109 H 110 H Carbon Dioxide 21 L Creatinine 0.4 L 0.4 L Glucose Calcium 8.3 L 8.1 L AST 557 H ALT 259 H Lactate Dehydrogenase 800 H Total Creatine Kinase 68009 H 80761 H C-Reactive Protein Total Protein 5.4 L Albumin 3.1 L Triglycerides 285 H TSH Urine Protein Urine Occult Blood Ur Leukocyte Esterase Amorphous Crystals Urine Bacteria 01/08/18 01/08/18 01/08/18 20:27 18:41 18:41 RBC Hgb ESR Potassium Chloride Carbon Dioxide 20 L Creatinine 0.4 L Glucose Calcium 7.9 L AST 630 H ALT 282 H Lactate Dehydrogenase 864 H Total Creatine Kinase 55100 H C-Reactive Protein 1.7 H Total Protein 5.8 L Albumin 3.1 L Triglycerides 190 H TSH 8.12 H Urine Protein Urine Occult Blood Ur Leukocyte Esterase Amorphous Crystals Urine Bacteria 01/08/18 01/08/18 01/08/18 18:41 18:38 18:08 RBC 5.32 H Hgb 15.4 H ESR 23 H Potassium Chloride Carbon Dioxide Creatinine Glucose Calcium AST ALT Lactate Dehydrogenase Total Creatine Kinase C-Reactive Protein Total Protein Albumin Triglycerides TSH Urine Protein 30 A Urine Occult Blood 0.2 A Ur Leukocyte Esterase 25 A Amorphous Crystals Few A Urine Bacteria Few A Meds: Medications Acetaminophen (Tylenol) 650 mg PO Q6HP PRN PRN Reason: PAIN/FEVER > 101 Albuterol Sulfate (Ventolin) 1 puff INH Q4HP PRN PRN Reason: Shortness Of Breath Amitriptyline HCl (Elavil) 10 mg PO HS [facility] Last Admin: 01/09/18 20:59 Dose: 10 mg Fluticasone Propionate (Flonase) 1 spray NS DAILY [facility] Last Admin: 01/10/18 10:48 Dose: 1 spray Heparin Sodium (Porcine) (Heparin) 5,000 unit SQ Q12 [facility] Last Admin: 01/10/18 12:27 Dose: 5,000 unit Sodium Chloride (Sodium Chloride 0.9%) 1,000 mls @ 125 mls/hr IV .Q8H [facility] Last Admin: 01/10/18 10:28 Dose: 125 mls/hr Iron Carb/Multivit/[place]/Folic Acid (Multivitamin W/Minerals) 1 tab PO DAILY [facility] Last Admin: 01/10/18 10:49 Dose: 1 tab Lactobacillus Rhamnosus (Culturelle) 1 cap PO MoWeFr@0900 [facility] Naloxone HCl (Narcan) 0.1 mg IV Q2MIN PRN PRN Reason: Opiate Reversal Ondansetron HCl (Zofran) 4 mg IV Q6HP PRN PRN Reason: Nausea And Vomiting Oxycodone HCl (Roxicodone) 2.5 - 5 mg PO Q6HP PRN PRN Reason: Pain Last Admin: 01/10/18 10:24 Dose: 2.5 mg Pantoprazole Sodium (Protonix) 40 mg PO QAMAC [facility] Last Admin: 01/10/18 10:46 Dose: 40 mg Ocella 3 Mg-0.03 Mg (Tab) 1 dose PO DAILY [facility] Last Admin: 01/10/18 10:45 Dose: 1 dose Lactase 9000 Unit (Capsule) 2 dose PO DAILYP PRN PRN Reason: Lactose Intolerance Sodium Chloride (Saline Flush) 10 ml IV Q8 [facility] Last Admin: 01/10/18 05:06 Dose: Not Given Medical - PN: A/P - Time Spent With Patient Total time spent is greater than 50% in coordination of care (as documented) at patient's floor/unit and/or counseling patient: - Narrative A/P Narrative: A/P Rhabdomyolysis/ Myositis- suspect dermatomyositis given skin findings, plan for muscle biopsy tomorrow, ck trending down, cut back on IVF for now, monitor response. asthma- prn albuterol no wheezing. dvt hep sq Regular diet Medical - PN: Qual - VTE Deep Vein Thrombosis/Pulmonary Embolism Present on Admission: No
[2018-01-10] MEDS: AMITRIPTYLINE 10 MG TABLET PO SCH (21:18)
[2018-01-11] MEDS: 0.9 % SODIUM CHLORIDE 1,000 ML IV SCH ×4 (02:11→22:00)
[2018-01-11] MEDS: 0.9 % SODIUM CHLORIDE 10 ML SYRINGE IV SCH ×3 (05:20→21:57)
[2018-01-11 05:56] LABS: ALT/SGPT 248 U/l (0-40); Albumin/Globulin Ratio 1.2 (1.0-2.3); Alkaline Phosphatase 49 U/L (39-117); Bilirubin,Direct < 0.2 mg/dL (0.0-0.3); Blood Urea Nitrogen 7 mg/dl (6-20); Gamma Glutamyl Transpeptidase 16 U/L (5-36); Uric Acid 3.3 mg/dL (2.5-8.0)
[2018-01-11] MEDS ORDERED: LACTOBACILLUS 1 CAPSULE PO SCH (09:00)
--- NOTE | 2018-01-11 09:43 | Internal Medicine Consult Note ---
Medical - CN: HPI - Data of Consult Consult date: 01/11/18 Requesting Physician: Jerrell Uribe Primary Care Provider: PCP No - Consult Narrative History of present illness: Ms. Panchal is a 27 year old F CC: Jerrell Uribe - Constitutional Constitutional: Present: anorexia Medical - CN: Meds Home Medications Medication Instructions Recorded Confirmed Type Albuterol Sulfate [Ventolin] 1 puff INH Q4HP PRN 01/08/18 01/08/18 History Amitriptyline [Elavil] 10 mg PO HS 01/08/18 01/08/18 History Ethinyl Estradiol/Drospirenone 1 tab PO QDAY 01/08/18 01/08/18 History [Ocella 3 mg-0.03 mg Tablet] Fluticasone/Salmeterol 1 spray NS QDAY 01/08/18 01/08/18 History [Fluticasone-Salmeterol 55-14] L.acidoph,Paracasei, B.lactis 1 each PO 3XW 01/08/18 01/08/18 History [Probiotic] Lactase [Lactaid Fast Act] 1 - 2 cap PO DAILYP PRN 01/08/18 01/08/18 History Multivitamin [One Daily 1 tab PO DAILY 01/08/18 01/08/18 History Multivitamin] Allergies Allergy/AdvReac Type Severity Reaction Status Date / Time hydrocodone Allergy Severe Vomiting Verified 01/08/18 17:05 Medical - CN: Exam - Constitutional Vitals: Temp Pulse Resp BP Pulse Ox 97.4 F 101 H 16 127/76 97 01/11/18 06:46 01/11/18 03:33 01/11/18 06:46 01/11/18 06:46 01/11/18 06:46 Medical - CN: Result - Labs CBC & Chem 7: 01/08/18 18:08 01/11/18 04:10 Labs: BMP 01/11/18 04:10 Sodium 138 Potassium 4.0 Chloride 109 H Carbon Dioxide 21 L BUN 7 Creatinine 0.4 L Glucose 97 Calcium 8.4 L Cardiac Enzymes 01/11/18 Range/Units 04:10 Total Creatine Kinase 55721 H (24-170) IU/L Liver Function 01/11/18 Range/Units 04:10 Total Bilirubin 0.2 (0.0-1.0) mg/dL Direct Bilirubin < 0.2 (0.0-0.3) mg/dL GGT 16 (5-36) U/L AST 528 H (0-37) U/l ALT 248 H (0-40) U/l Alkaline Phosphatase 49 (39-117) U/L Albumin 3.0 L (3.2-5.2) gm/dL
[2018-01-11] MEDS: HEPARIN 5,000 UNIT/ML VIAL SQ SCH ×2 (09:54→22:00)
[2018-01-11] MEDS: MULTIVIT,THER IRON,CA,FA & MIN 1 TABLET PO SCH (09:54)
[2018-01-11] MEDS: PANTOPRAZOLE 40 MG TABLET PO SCH (09:54)
[2018-01-11] MEDS: OCELLA PO SCH (09:54)
--- NOTE | 2018-01-11 11:38 | Internal Medicine Consult Note ---
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 This required intense exercise program wearing a vest up to 25-40 pounds. Despite her reservations and limitations, she felt coaxed into continuing. By the end of October she was feeling stiffness in her shoulder girdle muscles and soon after noticed weakness of her proximal arms and lately in her hips and thighs. At the end of November, she was reviewed by her primary care physician and noted to have elevated CK, upto 18,000. She was admitted to a local [place] hospital where she received fluids. CK levels started to come down from the high of 20,000 and she was released home on hydration. When reviewed last week by her PCP, she had continued to remain unwell and was noted to have a further increase in her enzymes and advised to be admitted. By this time she was unable to take care of herself and had moved in with her parents who live locally and hence admitted to [facility]. There is no past history of similar illness, other trauma, any articular or extra-articular manifestations of connective tissue disease except for a rash over the past 2-3 weeks and felt fatigued. She denies any history of fever or chills, diplopia, sicca complex, Raynaud's. More recently she has noticed dysphagia for dry food such as a toast and denies any acid reflux. She has a GI history consistent with IBS and does experience noninflammatory diarrhea and constipation. She has menstrual cramps for which she uses Aleve about 4 doses a month. She takes Excedrin for occasional migraine headaches. Review of systems: Review of systems is essentially noncontributory except for integument. Over the last 3 months she has noticed increasing cuticle and redness of the nailbed. She has also noticed rash over the lateral aspect of her proximal arms , thighs, over the knees, knuckles of the fingers and proximal phalanges. . - Constitutional Constitutional: Present: fatigue. Absent: anorexia, excessive sweating, fever(s ), headache(s), night sweats, weight gain, weight loss - EENT Eyes: Absent: blurry vision, change in vision, diplopia, dry eye, exophthalmos, photophobia, other visual disturbances Ears: Absent: ear pain, tinnitus Nose, mouth and throat: Absent: abnormal hearing, bleeding gums, change in voice , dizziness, dry mouth, headache(s), mouth lesions, nasal congestion, post- nasal drip, sinus pain, sore throat - Cardiovascular Cardiovascular: Absent: chest pain, claudication, dyspnea, leg edema, leg ulcers - Respiratory Respiratory: Absent: cough, dyspnea, hemoptysis, wheezing - Gastrointestinal Gastrointestinal: Present: constipation, diarrhea, dysphagia. Absent: change in bowel habits, nausea, vomiting - Genitourinary Genitourinary: Absent: dysuria, flank pain, pelvic pain, urinary frequency, vaginal discharge - Musculoskeletal Musculoskeletal: Present: as per HPI - Integumentary Integumentary: Present: as per HPI - Endocrine Endocrine: Absent: cold intolerance, heat intolerance - Hematologic/Lymphatic Hematologic/Lymphatic: Absent: easy bleeding, easy bruising, lymphadenopathy Medical - CN: PMH Medical history: 1. Asthma - since [employer]; well controlled. 2. IBS - better with Amitriptyline, low dose 3. Migraine headaches, treats with otc Excedrin occasionally Medical - CN: Meds Home Medications Medication Instructions Recorded Confirmed Type Albuterol Sulfate [Ventolin] 1 puff INH Q4HP PRN 01/08/18 01/08/18 History Amitriptyline [Elavil] 10 mg PO HS 01/08/18 01/08/18 History Ethinyl Estradiol/Drospirenone 1 tab PO QDAY 01/08/18 01/08/18 History [Ocella 3 mg-0.03 mg Tablet] Fluticasone/Salmeterol 1 spray NS QDAY 01/08/18 01/08/18 History [Fluticasone-Salmeterol 55-14] L.acidoph,Paracasei, B.lactis 1 each PO 3XW 01/08/18 01/08/18 History [Probiotic] Lactase [Lactaid Fast Act] 1 - 2 cap PO DAILYP PRN 01/08/18 01/08/18 History Multivitamin [One Daily 1 tab PO DAILY 01/08/18 01/08/18 History Multivitamin] Allergies Allergy/AdvReac Type Severity Reaction Status Date / Time hydrocodone Allergy Severe Vomiting Verified 01/08/18 17:05 Medical - CN: Exam - Constitutional Vitals: Temp Pulse Resp BP Pulse Ox 97.4 F 101 H 16 127/76 97 01/11/18 06:46 01/11/18 03:33 01/11/18 06:46 01/11/18 06:46 01/11/18 06:46 Exam: General appearanceshe is clearly distressed by weakness and discomfort in her proximal extremities and has difficulty with transfers including rising from supine positions and sitting up. She is well developed, well nourished but somewhat overweight. She is afebrile, alert and oriented. EYES - No taryn-orbital rash, swelling noted. No icterus. EOM and vision normal ENMT - External ear examination is normal. Nasal septum normal. No sinus tenderness. No mucosal ulcers noted. Gums and dentition normal. CVS - Heart sounds normal,no gallops, rubs or murmurs noted. RESPIRATORY - breath sounds normal. No rales,rhonchi or rubs GI - Abdominal examination is non-tender, no organomegaly. No hepatosplenomegaly. Heparin site injection bruising was noted EXTREMITIES - Extremities examination daily for today of painful and limited range of motion of the shoulders. She has normal range at elbows and wrists without any pain. There is puffiness of the right hand with stiffness on fist closure; left hand examination was normal. Examination of the lower extremities showed full range of motion at the hips knees ankles and toes. No joint pain tenderness or swelling present. She has proximal weakness at the shoulders, right worse than left on abduction and flexion. Right upper arm also seemed to be slightly swollen with tenderness. She has moderate weakness on flexion at the hips with normal Adduction and abduction. No distal weakness is noted either in the upper or lower extremities. SKIN - Skin examination shows erythematous lesions (Gottron's papaules) over the second and third MCP joints bilaterally. Erythematous lesions, nonpalpable noted over the proximal phalanx of the index finger. Erythema is noted over the posterior neck with some minimal induration; erythema is noted over the proximal upper arms. Erythema is noted over the thighs on the lateral aspect. Patchy erythemjatous lesions over the knees are noted. Periungual nail fold changes are noted associated with increased cuticle. Minimally scaling, slightly tender and erythematous rash noted on the lateral/ palmar aspect of the fingers Scalp and hair examination is unremarkable. - Neurological Exam Neurological exam: Present: abnormal gait, alert, oriented X3, reflexes normal. Absent: motor sensory deficit - Psychiatric Psychiatric exam: Present: normal affect Medical - CN: Result - Labs CBC & Chem 7: 01/08/18 18:08 01/12/18 05:38 Labs: BMP 01/11/18 04:10 Sodium 138 Potassium 4.0 Chloride 109 H Carbon Dioxide 21 L BUN 7 Creatinine 0.4 L Glucose 97 Calcium 8.4 L Cardiac Enzymes 01/11/18 Range/Units 04:10 Total Creatine Kinase 25137 H (24-170) IU/L Liver Function 01/11/18 Range/Units 04:10 Total Bilirubin 0.2 (0.0-1.0) mg/dL Direct Bilirubin < 0.2 (0.0-0.3) mg/dL GGT 16 (5-36) U/L AST 528 H (0-37) U/l ALT 248 H (0-40) U/l Alkaline Phosphatase 49 (39-117) U/L Albumin 3.0 L (3.2-5.2) gm/dL Medical - CN: A/P - Narrative A/P Narrative: This 27-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 Inflammatory myositis/dermatomyositis; palmar skin changes suggestive anti- synthetase syndrome 2. Rhabdomyolysis, unlikely primary but exacerbating underlying myositis 3. Overlap autoimmune syndrome cannot be ruled out. Recommendations 1. Continue adequate hydration and diuresis 2. Muscle biopsy is planned for this afternoon suggested that she get a PT PTT prior to the procedure and an upper arm and quadriceps muscles muscle B biopsied 3. Arrange for an EMG on the opposite side to the biopsy 4. Consider initiating steroid therapy over the next 48 hours.
[2018-01-11] MEDS ORDERED: MIDAZOLAM 2 MG/2 ML VIAL IV ONE (12:50)
[2018-01-11] MEDS ORDERED: HYDROmorphone 2 MG/ML VIAL IV ONE (12:50)
[2018-01-11] MEDS ORDERED: ONDANSETRON 4 MG/2 ML VIAL IV ONE (12:50)
[2018-01-11] MEDS ORDERED: KETAMINE 100 MG/ML ML IV ONE (12:50)
[2018-01-11] MEDS ORDERED: fentaNYL 100 MCG/2 ML VIAL IV ONE (12:50)
[2018-01-11] MEDS ORDERED: PROPOFOL 200 MG/20 ML VIAL IV ONE (12:50)
[2018-01-11] MEDS ORDERED: GLYCOPYRROLATE 0.2 MG/ML VIAL IV ONE (12:50)
[2018-01-11] MEDS ORDERED: cefOXitin 2 GM VIAL IV SCH (13:00)
[2018-01-11] MEDS ORDERED: GUM MASTIC/STORAX/MSAL/ALCOHOL 1 DOSE DROPERETTE TOPICAL ONE (14:31)
--- NOTE | 2018-01-11 14:32 | Brief Operative Note ---
Date of procedure: 01/11/18 Pre-op diagnosis: acute myositis with rhabdomyolysis Post-op diagnosis: other (acute myositis with rhabdomyolysis) Procedure: right triceps muscle biopsy right quadriceps muscle biopsy Grafts/Implants: No Anesthesia: GLMA Complications: none Surgeon: Medina Pool Specimens Removed/Pathology: other (muscle biopsy x 2 sent fresh and given to clinical laboratory aide) Condition: stable Disposition: PACU
[2018-01-11] MEDS ORDERED: MEPERIDINE 25 MG/ML SYRINGE IV PRN (15:03)
[2018-01-11] MEDS ORDERED: PROMETHAZINE 25 MG/ML VIAL IV PRN ×2 (15:03→17:31)
[2018-01-11] MEDS ORDERED: IPRATROPIUM/ALBUTEROL 3 ML AMPUL.NEB NEB PRN (15:03)
[2018-01-11] MEDS ORDERED: KETOROLAC 30 MG/ML VIAL IV PRN (15:03)
[2018-01-11] MEDS ORDERED: fentaNYL 100 MCG/2 ML VIAL IV PRN (15:03)
[2018-01-11] MEDS ORDERED: ONDANSETRON 4 MG/2 ML VIAL IV PRN ×2 (15:03→15:28)
[2018-01-11] MEDS ORDERED: ONDANSETRON 4 MG/2 ML VIAL ONE (15:06)
[2018-01-11] MEDS ORDERED: LACTATED RINGERS 1,000 ML IV SCH (15:15)
[2018-01-11] MEDS ORDERED: LACTASE 9000 UNIT PO PRN (15:28)
[2018-01-11] MEDS ORDERED: ALBUTEROL SULFATE 1 PUFF INHALER INH PRN (15:28)
--- NOTE | 2018-01-11 15:31 | Internal Med Progress Note ---
Medical - PN: Subj Patient information: Note initiated : 01/11/18 at 3:26 pm Service Date, if different from initiated Date: [] Patient: Shreya Panchal a 27 y/o F admitted on 01/08/18 for Rhabdo last week, labs drawn this am.. Chief Complaint: [] Interval history: Ms. Panchal is a 27 year old F with h/o IBS, on amitryptline for same, presents to the ER today at the recommendation of her PCP. 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 Her muscle aches, pains, fatigue did not go away, she has stifness in the mornings in the shoulders, neck and upper back, she has pain and weakness in both shoulders, she was finding it difficult to comb her own hair, and get dressed by self. Her symptoms got progressively worse throughout the month of November and she decided to seek help at the end of the month. Her primary care physician ordered some labs, noted that she had elevated LFTs, and also elevated CK values, she was admitted to the hospital with a diagnosis of rhabdomyolysis, her CK was around 20,000. She notes she also had a CT scan of the abdomen done the results of which she does not know. The patient was treated with fluids, CK values improved to 13,000, she felt a little bit better but the mild GI stiffness and weakness mostly present. After she was discharged from the hospital the symptoms continued and she continued to drink fluids, she did not go out in the heat. The patient had a repeat lab done which showed her CK had increased she was advised to drink fluids and recheck her CK. The patient came to live with the parents, it was noted that her repeat CK was again 18,000 and she was asked to come to the hospital for further management. The patient notes she has no difficulty in using her fingers are fine motor skills is intact the predominant problem she has is involving the shoulder region and upper back. She also has difficulty in getting up from the sitting position there is pain in both her thighs. She has noticed increase roughness in the fingertips, and some flaking of the skin around her nails. She has noticed rash on her thighs. The patient denies any fever chills headache changes in vision double vision no difficulty in swallowing the patient denies any cough no acute shortness of breath or chest pain no nausea no vomiting no acute abdominal pain no diarrhea constipation no arthralgia sites mentioned above. The patient had been camping once however notes that her symptoms predate the day of camping. The patient denies any use of [id number] medications and herbal supplements for weight loss or any other purpose. The patient has been diagnosed with IBS and she takes amitriptyline for same, she also has been taking OC pills. These medications are not new. The patient takes lactase for lactic acid intolerance. The patient has a history of asthma uses albuterol as needed. The patient had a CK level of around 18,000, repeat CK checked showed CK around 16,000 she has elevated LFTs, patient is being admitted to the hospital for further evaluation and management case was reviewed with Dr. Ortega rheumatology by the ER. 01/09 Pt seen examined, [place] [address]/s proximal muscle weakness present on ivf pt would like to be without the plunkett MRI reviewed, mary inflammation/ edema cxr interpreted as normal plan of care reviewed with pt and family good urine output noted, IV lasix x [address] reviewed from outside hospital, neg for liver pathology hiv, hepatitis a b and c is negative 01/10 Pt seen examined no change in status ck trending down, 11K now esr 30 muscle strenght stable, no dysphagia reported some headache 01/11 Pt seen examined no acute overnight events weakness stable, some improvement on left arm, right arm more painful plan for biopsy today, arm and [place], [address] on ivf good urine output rheumatology to consult Pertinent ROS: Denies headache, dizziness Denies chest pain, palpitations Denies cough or shortness of breath Denies abdominal pain, nausea or vomiting. - Constitutional Vitals: Vital Signs Temp Pulse Resp BP Pulse Ox 98.3 F 79 16 116/67 96 01/11/18 15:19 01/11/18 15:19 01/11/18 15:19 01/11/18 15:19 01/11/18 15:19 Period Temp Pulse Resp BP Sys/An Pulse Ox Last 24 Hr 97.4 F-98.5 F 60-101 14-18 115-134/64-92 96-100 Intake and Output 01/11/18 01/11/18 01/11/18 05:59 13:59 21:59 Intake Total 1500 / 1500 Output Total 1450 / 1450 900 / 900 Balance 50 / 50 -900 / -900 Intake & Output: Intake & Output 01/11/18 01/11/18 01/11/18 05:59 13:59 21:59 Intake Total 1500 / 1500 Output Total 1450 / 1450 900 / 900 Balance 50 / 50 -900 / -900 Intake: IV 1000 / 1000 Sodium Chloride 0.9% 1,000 ml @ 1000 / 1000 125 mls/hr IV .Q8H [facility] Rx#: [id number] Oral 500 / 500 Output: Urine Catheter Amount 1450 / 1450 900 / 900 Other: Urine Appearance Clear Urine Color Pale Urine Odor Normal Exam: Constitutional; Afebrile, cooperative, alert, not in distress. Respiratory system: Air Entry equal on both sides, No crackles or wheezing, no rhonchi. CVS- Rate rhythm regular, S1,S2 heard, no gallop, no rub. 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, moving all extremities, no gross focal deficit noted exam unchnaged lower extremity, right upper extremity more painful today, left upper extrmity strength 4/5, albe to lift uptill her head Medical - PN: Obj Da - Labs CBC & Chem 7: 01/08/18 18:08 01/11/18 04:10 Labs: Abnormal Lab Results 01/11/18 01/11/18 01/10/18 04:10 04:10 04:13 RBC Hgb ESR 30 H Potassium Chloride 109 H Carbon Dioxide 21 L Creatinine 0.4 L Glucose Calcium 8.4 L AST 528 H ALT 248 H Lactate Dehydrogenase 757 H Total Creatine Kinase 23518 H C-Reactive Protein Total Protein 5.6 L Albumin 3.0 L Triglycerides 224 H TSH Urine Protein Urine Occult Blood Ur Leukocyte Esterase Amorphous Crystals Urine Bacteria 01/10/18 01/10/18 01/09/18 04:13 04:13 16:30 RBC Hgb ESR Potassium 3.2 L Chloride 109 H Carbon Dioxide 19 L 21 L Creatinine 0.4 L 0.4 L Glucose 137 H Calcium 8.3 L AST 475 H ALT 247 H Lactate Dehydrogenase 767 H Total Creatine Kinase 71052 H 26085 H C-Reactive Protein 1.4 H Total Protein Albumin 3.0 L Triglycerides 200 H TSH Urine Protein Urine Occult Blood Ur Leukocyte Esterase Amorphous Crystals Urine Bacteria 01/09/18 01/09/18 01/08/18 04:20 04:20 20:27 RBC Hgb ESR Potassium Chloride 110 H Carbon Dioxide Creatinine 0.4 L Glucose Calcium 8.1 L AST 557 H ALT 259 H Lactate Dehydrogenase 800 H Total Creatine Kinase 74994 H C-Reactive Protein Total Protein 5.4 L Albumin 3.1 L Triglycerides 285 H TSH 8.12 H Urine Protein Urine Occult Blood Ur Leukocyte Esterase Amorphous Crystals Urine Bacteria 01/08/18 01/08/18 01/08/18 18:41 18:41 18:41 RBC Hgb ESR 23 H Potassium Chloride Carbon Dioxide 20 L Creatinine 0.4 L Glucose Calcium 7.9 L AST 630 H ALT 282 H Lactate Dehydrogenase 864 H Total Creatine Kinase 13231 H C-Reactive Protein 1.7 H Total Protein 5.8 L Albumin 3.1 L Triglycerides 190 H TSH Urine Protein Urine Occult Blood Ur Leukocyte Esterase Amorphous Crystals Urine Bacteria 01/08/18 01/08/18 18:38 18:08 RBC 5.32 H Hgb 15.4 H ESR Potassium Chloride Carbon Dioxide Creatinine Glucose Calcium AST ALT Lactate Dehydrogenase Total Creatine Kinase C-Reactive Protein Total Protein Albumin Triglycerides TSH Urine Protein 30 A Urine Occult Blood 0.2 A Ur Leukocyte Esterase 25 A Amorphous Crystals Few A Urine Bacteria Few A Meds: Medications Acetaminophen (Tylenol) 650 mg PO Q6HP PRN PRN Reason: PAIN/FEVER > 101 Albuterol Sulfate (Ventolin) 1 puff INH Q4HP PRN PRN Reason: Shortness Of Breath Albuterol/Ipratropium (Duoneb) 3 ml NEB ONCE PRN PRN Reason: Wheezing Stop: 01/11/18 17:03 Amitriptyline HCl (Elavil) 10 mg PO HS [facility] Last Admin: 01/10/18 21:18 Dose: 10 mg Fentanyl (Sublimaze) 25 mcg IV Q2M PRN PRN Reason: Pain Stop: 01/11/18 17:03 Fluticasone Propionate (Flonase) 1 spray NS DAILY [facility] Last Admin: 01/10/18 10:48 Dose: 1 spray Heparin Sodium (Porcine) (Heparin) 5,000 unit SQ Q12 [facility] Last Admin: 01/11/18 09:54 Dose: Not Given Sodium Chloride (Sodium Chloride 0.9%) 1,000 mls @ 125 mls/hr IV .Q8H [facility] Last Admin: 01/11/18 02:11 Dose: 125 mls/hr Lactated Ringer's (Lactated Ringers) 1,000 mls @ 20 mls/hr IV .Q24H [facility] Stop: 01/11/18 17:03 Acetaminophen (Ofirmev) 1,000 mg in 100 mls @ 200 mls/hr IV ONCE ONE Stop: 01/11/18 15:32 Iron Carb/Multivit/Barton/Folic Acid (Multivitamin W/Minerals) 1 tab PO DAILY [facility] Last Admin: 01/11/18 09:54 Dose: Not Given Ketorolac Tromethamine (Toradol) 30 mg IV ONCE PRN PRN Reason: Pain Stop: 01/11/18 17:03 Lactobacillus Rhamnosus (Culturelle) 1 cap PO MoWeFr@0900 [facility] Last Admin: 01/11/18 09:54 Dose: Not Given Meperidine HCl (Demerol) 12.5 mg IV Q5M PRN PRN Reason: Shivering Stop: 01/11/18 17:03 Naloxone HCl (Narcan) 0.1 mg IV Q2MIN PRN PRN Reason: Opiate Reversal Ondansetron HCl (Zofran) 4 mg IV Q6HP PRN PRN Reason: Nausea And Vomiting Ondansetron HCl (Zofran) 4 mg IV ONCE PRN PRN Reason: Nausea And Vomiting Stop: 01/11/18 17:03 Oxycodone HCl (Roxicodone) 2.5 - 5 mg PO Q6HP PRN PRN Reason: Pain Last Admin: 01/10/18 16:05 Dose: 2.5 mg Pantoprazole Sodium (Protonix) 40 mg PO QAMAC [facility] Last Admin: 01/11/18 09:54 Dose: Not Given Ocella 3 Mg-0.03 Mg (Tab) 1 dose PO DAILY [facility] Last Admin: 01/11/18 09:54 Dose: Not Given Lactase 9000 Unit (Capsule) 2 dose PO DAILYP PRN PRN Reason: Lactose Intolerance Promethazine HCl (Phenergan) 6.25 mg IV Q15M PRN PRN Reason: Nausea And Vomiting Stop: 01/11/18 17:03 Sodium Chloride (Saline Flush) 10 ml IV Q8 [facility] Last Admin: 01/11/18 05:20 Dose: Not Given Medical - PN: A/P - Time Spent With Patient Total time spent is greater than 50% in coordination of care (as documented) at patient's floor/unit and/or counseling patient: - Narrative A/P Narrative: A/P Rhabdomyolysis/ Myositis- 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 asthma- prn albuterol no wheezing. IBS on amitriptyline. dvt hep sq Regular diet Medical - PN: Qual - VTE Deep Vein Thrombosis/Pulmonary Embolism Present on Admission: No
[2018-01-11] MEDS: FLUTICASONE PROPIONATE SPRAY.NAS NS SCH (16:42)
[2018-01-11] MEDS: ACETAMINOPHEN 1,000 MG/100 ML BOTTLE IV ONE ×2 (16:42→18:00)
--- NOTE | 2018-01-11 18:58 | Internal Med Progress Note ---
Medical - PN: Subj Patient information: Note initiated : 01/11/18 at 6:57 pm Service Date, if different from initiated Date: [] Patient: Shreya Panchal 27 y/o F admitted on 01/08/18 for Rhabdo last week, labs drawn this am.. Chief Complaint: [Rhabdomyolysis/ Myositis - Constitutional Vitals: Vital Signs Temp Pulse Resp BP Pulse Ox 98.3 F 79 16 120/75 98 01/11/18 15:19 01/11/18 15:19 01/11/18 15:19 01/11/18 16:53 01/11/18 16:53 Period Temp Pulse Resp BP Sys/An Pulse Ox Last 24 Hr 97.4 F-98.5 F 60-101 14-18 110-134/64-92 95-100 Intake and Output 01/11/18 01/11/18 01/11/18 05:59 13:59 21:59 Intake Total 1500 / 1500 985 / 985 100 / 100 Output Total 1450 / 1450 900 / 900 Balance 50 / 50 85 / 85 100 / 100 Intake & Output: Intake & Output 01/11/18 01/11/18 01/11/18 05:59 13:59 21:59 Intake Total 1500 / 1500 985 / 985 100 / 100 Output Total 1450 / 1450 900 / 900 Balance 50 / 50 85 / 85 100 / 100 Intake: IV 1000 / 1000 985 / 985 100 / 100 Sodium Chloride 0.9% 1,000 ml @ 1000 / 1000 125 mls/hr IV .Q8H [facility] Rx#: [id number] Oral 500 / 500 0 / 0 Output: Urine Catheter Amount 1450 / 1450 900 / 900 Other: Urine Appearance Clear Urine Color Pale Uretheral (Martinez) Pale Urine Odor Normal Medical - PN: Obj Da - Labs CBC & Chem 7: 01/08/18 18:08 01/11/18 04:10 Labs: Abnormal Lab Results 01/11/18 01/11/18 01/10/18 04:10 04:10 04:13 ESR 30 H Potassium Chloride 109 H Carbon Dioxide 21 L Creatinine 0.4 L Glucose Calcium 8.4 L AST 528 H ALT 248 H Lactate Dehydrogenase 757 H Total Creatine Kinase 51202 H C-Reactive Protein Total Protein 5.6 L Albumin 3.0 L Triglycerides 224 H TSH Urine Protein Urine Occult Blood Ur Leukocyte Esterase Amorphous Crystals Urine Bacteria 01/10/18 01/10/18 01/09/18 04:13 04:13 16:30 ESR Potassium 3.2 L Chloride 109 H Carbon Dioxide 19 L 21 L Creatinine 0.4 L 0.4 L Glucose 137 H Calcium 8.3 L AST 475 H ALT 247 H Lactate Dehydrogenase 767 H Total Creatine Kinase 33515 H 54093 H C-Reactive Protein 1.4 H Total Protein Albumin 3.0 L Triglycerides 200 H TSH Urine Protein Urine Occult Blood Ur Leukocyte Esterase Amorphous Crystals Urine Bacteria 01/09/18 01/09/18 01/08/18 04:20 04:20 20:27 ESR Potassium Chloride 110 H Carbon Dioxide Creatinine 0.4 L Glucose Calcium 8.1 L AST 557 H ALT 259 H Lactate Dehydrogenase 800 H Total Creatine Kinase 18215 H C-Reactive Protein Total Protein 5.4 L Albumin 3.1 L Triglycerides 285 H TSH 8.12 H Urine Protein Urine Occult Blood Ur Leukocyte Esterase Amorphous Crystals Urine Bacteria 01/08/18 01/08/18 01/08/18 18:41 18:41 18:41 ESR 23 H Potassium Chloride Carbon Dioxide 20 L Creatinine 0.4 L Glucose Calcium 7.9 L AST 630 H ALT 282 H Lactate Dehydrogenase 864 H Total Creatine Kinase 40039 H C-Reactive Protein 1.7 H Total Protein 5.8 L Albumin 3.1 L Triglycerides 190 H TSH Urine Protein Urine Occult Blood Ur Leukocyte Esterase Amorphous Crystals Urine Bacteria 01/08/18 18:38 ESR Potassium Chloride Carbon Dioxide Creatinine Glucose Calcium AST ALT Lactate Dehydrogenase Total Creatine Kinase C-Reactive Protein Total Protein Albumin Triglycerides TSH Urine Protein 30 A Urine Occult Blood 0.2 A Ur Leukocyte Esterase 25 A Amorphous Crystals Few A Urine Bacteria Few A Meds: Medications Acetaminophen (Tylenol) 650 mg PO Q6HP PRN PRN Reason: PAIN/FEVER > 101 Albuterol Sulfate (Ventolin) 1 puff INH Q4HP PRN PRN Reason: Shortness Of Breath Amitriptyline HCl (Elavil) 10 mg PO HS [facility] Fluticasone Propionate (Flonase) 1 spray NS DAILY [facility] Heparin Sodium (Porcine) (Heparin) 5,000 unit SQ Q12 [facility] Sodium Chloride (Sodium Chloride 0.9%) 1,000 mls @ 125 mls/hr IV .Q8H [facility] Last Admin: 01/11/18 17:21 Dose: 125 mls/hr Iron Carb/Multivit/[place]/Folic Acid (Multivitamin W/Minerals) 1 tab PO DAILY [facility] Lactobacillus Rhamnosus (Culturelle) 1 cap PO MoWeFr@0900 [facility] Ondansetron HCl (Zofran) 4 mg IV Q6HP PRN PRN Reason: Nausea And Vomiting Oxycodone HCl (Roxicodone) 2.5 - 5 mg PO Q6HP PRN PRN Reason: Pain Pantoprazole Sodium (Protonix) 40 mg PO QAMAC [facility] Lactase 9000 Unit (Capsule) 2 dose PO DAILYP PRN PRN Reason: Lactose Intolerance Ocella 3 Mg-0.03 Mg (Tab) 1 dose PO DAILY [facility] Promethazine HCl (Phenergan) 12.5 mg IV Q4HP PRN PRN Reason: Nausea And Vomiting Last Admin: 01/11/18 17:56 Dose: 12.5 mg Sodium Chloride (Saline Flush) 10 ml IV Q8 [facility] Medical - PN: A/P - Time Spent With Patient Total time spent is greater than 50% in coordination of care (as documented) at patient's floor/unit and/or counseling patient: - Narrative A/P Narrative: A: *Rhabdomyolysis/Myositis (?dermatomyositis given skin findings): -muscle biopsy -CK downtrending *Asthma *IBS: on amitriptyline. P: -pending muscle biopsy -IVF's -Rheum following; steroids per rheumatology - ppx: heparin Medical - PN: Qual - VTE Deep Vein Thrombosis/Pulmonary Embolism Present on Admission: No
[2018-01-11] MEDS: AMITRIPTYLINE 10 MG TABLET PO SCH (22:00)
[2018-01-11] MEDS: ACETAMINOPHEN 325 MG TABLET PO PRN (22:02)
[2018-01-12] MEDS: 0.9 % SODIUM CHLORIDE 1,000 ML IV SCH ×4 (01:19→20:06)
[2018-01-12] MEDS: 0.9 % SODIUM CHLORIDE 10 ML SYRINGE IV SCH ×3 (04:57→22:15)
[2018-01-12] MEDS: ACETAMINOPHEN 325 MG TABLET PO PRN ×3 (05:23→19:07)
[2018-01-12 07:26] LABS: ALT/SGPT 236 U/l (0-40); Albumin/Globulin Ratio 1.1 (1.0-2.3); Alkaline Phosphatase 50 U/L (39-117); Bilirubin,Direct < 0.2 mg/dL (0.0-0.3); Blood Urea Nitrogen 6 mg/dl (6-20); Gamma Glutamyl Transpeptidase 20 U/L (5-36); Uric Acid 3.4 mg/dL (2.5-8.0)
--- NOTE | 2018-01-12 08:07 | Internal Med Progress Note ---
Medical - PN: Subj Patient information: Note initiated : 01/12/18 at 8:01 am Service Date, if different from initiated Date: [] Patient: Shreya Panchal a 27 y/o F admitted on 01/08/18 for Rhabdo last week, labs drawn this am.. Chief Complaint: [] Interval history: Ms. Panchal is a 27 year old F with h/o IBS, on amitryptline for same, presents to the ER today at the recommendation of her PCP. 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 Her muscle aches, pains, fatigue did not go away, she has stifness in the mornings in the shoulders, neck and upper back, she has pain and weakness in both shoulders, she was finding it difficult to comb her own hair, and get dressed by self. Her symptoms got progressively worse throughout the month of November and she decided to seek help at the end of the month. Her primary care physician ordered some labs, noted that she had elevated LFTs, and also elevated CK values, she was admitted to the hospital with a diagnosis of rhabdomyolysis, her CK was around 20,000. She notes she also had a CT scan of the abdomen done the results of which she does not know. The patient was treated with fluids, CK values improved to 13,000, she felt a little bit better but the mild GI stiffness and weakness mostly present. After she was discharged from the hospital the symptoms continued and she continued to drink fluids, she did not go out in the heat. The patient had a repeat lab done which showed her CK had increased she was advised to drink fluids and recheck her CK. The patient came to live with the parents, it was noted that her repeat CK was again 18,000 and she was asked to come to the hospital for further management. The patient notes she has no difficulty in using her fingers are fine motor skills is intact the predominant problem she has is involving the shoulder region and upper back. She also has difficulty in getting up from the sitting position there is pain in both her thighs. She has noticed increase roughness in the fingertips, and some flaking of the skin around her nails. She has noticed rash on her thighs. The patient denies any fever chills headache changes in vision double vision no difficulty in swallowing the patient denies any cough no acute shortness of breath or chest pain no nausea no vomiting no acute abdominal pain no diarrhea constipation no arthralgia sites mentioned above. The patient had been camping once however notes that her symptoms predate the day of camping. The patient denies any use of [id number] medications and herbal supplements for weight loss or any other purpose. The patient has been diagnosed with IBS and she takes amitriptyline for same, she also has been taking OC pills. These medications are not new. The patient takes lactase for lactic acid intolerance. The patient has a history of asthma uses albuterol as needed. The patient had a CK level of around 18,000, repeat CK checked showed CK around 16,000 she has elevated LFTs, patient is being admitted to the hospital for further evaluation and management case was reviewed with Dr. Ortega rheumatology by the ER. 01/09 Pt seen [place], [place] [address]/s proximal muscle weakness present on ivf pt would like to be without the plunkett MRI reviewed, mary inflammation/ edema cxr interpreted as normal plan of care reviewed with pt and family good urine output noted, IV lasix x [address] reviewed from outside hospital, neg for liver pathology hiv, hepatitis a b and c is negative 01/10 Pt seen examined no change in status ck trending down, 11K now esr 30 muscle strenght stable, no dysphagia reported some headache 01/11 Pt seen examined no acute overnight events weakness stable, some improvement on left arm, right arm more painful plan for biopsy today, arm and [place], [id number] on ivf good urine output rheumatology to consult 01/12 no new complaints. biopsy yesterday. occasional hot flashes. Review of Systems: denies headache/fever/chills/nausea/vomiting/chest or abdominal pain/cough/ dyspnea/diarrhea. Otherwise see above. - Constitutional Vitals: Vital Signs Temp Pulse Resp BP Pulse Ox 97.6 F 89 18 131/77 98 01/12/18 07:45 01/12/18 03:52 01/12/18 07:45 01/12/18 07:45 01/12/18 07:45 Period Temp Pulse Resp BP Sys/An Pulse Ox Last 24 Hr 97.4 F-98.5 F 60-89 15-20 110-142/64-92 95-100 Intake and Output 01/11/18 01/12/18 01/12/18 21:59 05:59 13:59 Intake Total 100 / 100 1396 / 1396 Output Total 1300 / 1300 1150 / 1150 Balance -1200 / -1200 246 / 246 Weight 181 lb Intake & Output: Intake & Output 01/11/18 01/12/18 01/12/18 21:59 05:59 13:59 Intake Total 100 / 100 1396 / 1396 Output Total 1300 / 1300 1150 / 1150 Balance -1200 / -1200 246 / 246 Weight 181 lb Intake: IV 100 / 100 996 / 996 Sodium Chloride 0.9% 1,000 ml @ 996 / 996 125 mls/hr IV .Q8H [facility] Rx#: [id number] Oral 0 / 0 400 / 400 Output: Urine Catheter Amount 1300 / 1300 1150 / 1150 Other: Meal (1) toast Percent of Meal Consumed 100% Feeding Ability Independent Urine Appearance Clear Urine Color Pale Bright Yellow Uretheral ([place]) Pale Urine Odor Normal Exam: General: Alert, Awake, No acute Distress HEENT: EOMI CV: RRR, No murmurs Pulm: Clear b/l, no wheezing/rhonchi/rales Abd: soft, nontender, +BS x4 Ext: no clubbing/cyanosis/edema Neuro: Alert, moves all extremities Skin: warm/dry, erythematous lesions over knees and hands Medical - PN: Obj Da - Labs CBC & Chem 7: 01/08/18 18:08 01/12/18 05:38 Labs: Abnormal Lab Results 01/12/18 01/12/18 01/11/18 05:38 05:38 04:10 ESR Potassium Chloride Carbon Dioxide Creatinine 0.4 L Glucose Calcium 8.4 L AST 409 H ALT 236 H Lactate Dehydrogenase 689 H Total Creatine Kinase 7219 H 38371 H C-Reactive Protein Total Protein 5.8 L Albumin 3.0 L Triglycerides 250 H 01/11/18 01/10/18 01/10/18 04:10 04:13 04:13 ESR 30 H Potassium Chloride 109 H Carbon Dioxide 21 L Creatinine 0.4 L Glucose Calcium 8.4 L AST 528 H ALT 248 H Lactate Dehydrogenase 757 H Total Creatine Kinase 42758 H C-Reactive Protein Total Protein 5.6 L Albumin 3.0 L Triglycerides 224 H 01/10/18 01/09/18 04:13 16:30 ESR Potassium 3.2 L Chloride 109 H Carbon Dioxide 19 L 21 L Creatinine 0.4 L 0.4 L Glucose 137 H Calcium 8.3 L AST 475 H ALT 247 H Lactate Dehydrogenase 767 H Total Creatine Kinase 06509 H C-Reactive Protein 1.4 H Total Protein Albumin 3.0 L Triglycerides 200 H Meds: Medications Acetaminophen (Tylenol) 650 mg PO Q6HP PRN PRN Reason: PAIN/FEVER > 101 Last Admin: 01/12/18 05:23 Dose: 650 mg Albuterol Sulfate (Ventolin) 1 puff INH Q4HP PRN PRN Reason: Shortness Of Breath Amitriptyline HCl (Elavil) 10 mg PO HS [facility] Last Admin: 01/11/18 22:00 Dose: 10 mg Fluticasone Propionate (Flonase) 1 spray NS DAILY [facility] Heparin Sodium (Porcine) (Heparin) 5,000 unit SQ Q12 [facility] Last Admin: 01/11/18 22:00 Dose: 5,000 unit Sodium Chloride (Sodium Chloride 0.9%) 1,000 mls @ 125 mls/hr IV .Q8H [facility] Last Admin: 01/12/18 01:19 Dose: 125 mls/hr Iron Carb/Multivit/[place]/Folic Acid (Multivitamin W/Minerals) 1 tab PO DAILY [facility] Lactobacillus Rhamnosus (Culturelle) 1 cap PO MoWeFr@0900 [facility] Ondansetron HCl (Zofran) 4 mg IV Q6HP PRN PRN Reason: Nausea And Vomiting Oxycodone HCl (Roxicodone) 2.5 - 5 mg PO Q6HP PRN PRN Reason: Pain Pantoprazole Sodium (Protonix) 40 mg PO QAMAC [facility] Lactase 9000 Unit (Capsule) 2 dose PO DAILYP PRN PRN Reason: Lactose Intolerance Ocella 3 Mg-0.03 Mg (Tab) 1 dose PO DAILY [facility] Promethazine HCl (Phenergan) 12.5 mg IV Q4HP PRN PRN Reason: Nausea And Vomiting Last Admin: 01/11/18 17:56 Dose: 12.5 mg Sodium Chloride (Saline Flush) 10 ml IV Q8 [facility] Last Admin: 01/12/18 04:57 Dose: Not Given Medical - PN: A/P - Time Spent With Patient Total time spent is greater than 50% in coordination of care (as documented) at patient's floor/unit and/or counseling patient: - Narrative A/P Narrative: A: *Rhabdomyolysis/Myositis/dermatomyositis: -muscle biopsy showing -CK downtrending *Asthma: *IBS: on amitriptyline. P: -pending muscle biopsy -IVF's decrease rate -Rheum following; steroids per rheumatology - ppx: heparin Medical - PN: Qual - VTE Deep Vein Thrombosis/Pulmonary Embolism Present on Admission: No
[2018-01-12] MEDS: OCELLA PO SCH (11:35)
[2018-01-12] MEDS: FLUTICASONE PROPIONATE SPRAY.NAS NS SCH (11:35)
[2018-01-12] MEDS: PANTOPRAZOLE 40 MG TABLET PO SCH (12:26)
[2018-01-12] MEDS: MULTIVIT,THER IRON,CA,FA & MIN 1 TABLET PO SCH (12:27)
--- NOTE | 2018-01-12 14:03 | Internal Med Progress Note ---
Medical - PN: Subj Patient information: Note initiated : 01/12/18 at 2:00 pm Service Date, if different from initiated Date: [] Patient: Shreya Panchal 27 y/o F admitted on 01/08/18 for Rhabdo last week, labs drawn this am.. Chief Complaint: [] - Constitutional Vitals: Vital Signs Temp Pulse Resp BP Pulse Ox 97.7 F 89 18 116/79 95 01/12/18 12:16 01/12/18 03:52 01/12/18 12:16 01/12/18 12:16 01/12/18 12:16 Period Temp Pulse Resp BP Sys/An Pulse Ox Last 24 Hr 97.4 F-98.5 F 60-89 15-20 110-142/64-92 95-100 Intake and Output 01/12/18 01/12/18 01/12/18 05:59 13:59 21:59 Intake Total 1396 / 1396 240 / 240 Output Total 1150 / 1150 Balance 246 / 246 240 / 240 Intake & Output: Intake & Output 01/12/18 01/12/18 01/12/18 05:59 13:59 21:59 Intake Total 1396 / 1396 240 / 240 Output Total 1150 / 1150 Balance 246 / 246 240 / 240 Intake: IV 996 / 996 Sodium Chloride 0.9% 1,000 ml @ 996 / 996 125 mls/hr IV .Q8H [facility] Rx#: [id number] Oral 400 / 400 240 / 240 Output: Urine Catheter Amount 1150 / 1150 Other: Meal (1) toast Lunch Percent of Meal Consumed 100% 100% Feeding Ability Independent General appearance: no disheveled, no moderate distress, no mild distress, no morbidly obese, no no acute distress, no obese Medical - PN: Obj Da - Labs CBC & Chem 7: 01/08/18 18:08 01/12/18 05:38 Labs: Abnormal Lab Results 01/12/18 01/12/18 01/11/18 05:38 05:38 04:10 ESR Potassium Chloride Carbon Dioxide Creatinine 0.4 L Glucose Calcium 8.4 L AST 409 H ALT 236 H Lactate Dehydrogenase 689 H Total Creatine Kinase 7219 H 68821 H C-Reactive Protein Total Protein 5.8 L Albumin 3.0 L Triglycerides 250 H 01/11/18 01/10/18 01/10/18 04:10 04:13 04:13 ESR 30 H Potassium Chloride 109 H Carbon Dioxide 21 L Creatinine 0.4 L Glucose Calcium 8.4 L AST 528 H ALT 248 H Lactate Dehydrogenase 757 H Total Creatine Kinase 68179 H C-Reactive Protein Total Protein 5.6 L Albumin 3.0 L Triglycerides 224 H 01/10/18 01/09/18 04:13 16:30 ESR Potassium 3.2 L Chloride 109 H Carbon Dioxide 19 L 21 L Creatinine 0.4 L 0.4 L Glucose 137 H Calcium 8.3 L AST 475 H ALT 247 H Lactate Dehydrogenase 767 H Total Creatine Kinase 17194 H C-Reactive Protein 1.4 H Total Protein Albumin 3.0 L Triglycerides 200 H Meds: Medications Acetaminophen (Tylenol) 650 mg PO Q6HP PRN PRN Reason: PAIN/FEVER > 101 Last Admin: 01/12/18 12:27 Dose: 650 mg Albuterol Sulfate (Ventolin) 1 puff INH Q4HP PRN PRN Reason: Shortness Of Breath Amitriptyline HCl (Elavil) 10 mg PO HS [facility] Last Admin: 01/11/18 22:00 Dose: 10 mg Fluticasone Propionate (Flonase) 1 spray NS DAILY [facility] Last Admin: 01/12/18 11:35 Dose: 1 spray Heparin Sodium (Porcine) (Heparin) 5,000 unit SQ Q12 [facility] Last Admin: 01/11/18 22:00 Dose: 5,000 unit Sodium Chloride (Sodium Chloride 0.9%) 1,000 mls @ 100 mls/hr IV .Q10H [facility] Last Admin: 01/12/18 11:36 Dose: 100 mls/hr Iron Carb/Multivit/[employer]/Folic Acid (Multivitamin W/Minerals) 1 tab PO DAILY [facility] Last Admin: 01/12/18 12:27 Dose: 1 tab Lactobacillus Rhamnosus (Culturelle) 1 cap PO MoWeFr@0900 [facility] Ondansetron HCl (Zofran) 4 mg IV Q6HP PRN PRN Reason: Nausea And Vomiting Oxycodone HCl (Roxicodone) 2.5 - 5 mg PO Q6HP PRN PRN Reason: Pain Pantoprazole Sodium (Protonix) 40 mg PO QAMAC [facility] Last Admin: 01/12/18 12:26 Dose: 40 mg Lactase 9000 Unit (Capsule) 2 dose PO DAILYP PRN PRN Reason: Lactose Intolerance Ocella 3 Mg-0.03 Mg (Tab) 1 dose PO DAILY [facility] Last Admin: 01/12/18 11:35 Dose: 1 dose Promethazine HCl (Phenergan) 12.5 mg IV Q4HP PRN PRN Reason: Nausea And Vomiting Last Admin: 01/11/18 17:56 Dose: 12.5 mg Sodium Chloride (Saline Flush) 10 ml IV Q8 [facility] Last Admin: 01/12/18 04:57 Dose: Not Given Medical - PN: A/P - Time Spent With Patient Total time spent is greater than 50% in coordination of care (as documented) at patient's floor/unit and/or counseling patient: Medical - PN: Qual - VTE Deep Vein Thrombosis/Pulmonary Embolism Present on Admission: No
--- NOTE | 2018-01-12 17:34 | General Surgery Progress Note ---
Subjective Patient reports: feels better, pain is less, tolerating a regular diet, flatus, bowel movement, afebrile Narrative: Note initiated : 01/12/18 at 5:32 pm Service Date, if different from initiated Date: [] Patient: Shreya Panchal 27 y/o F admitted on 01/08/18 for Rhabdo last week, labs drawn this am.. Chief Complaint: [patient's operative site are not significantly swollen. She has anticipated tenderness. Will change dressings. Prior to discharge home.] Objective Temp Pulse Resp BP Pulse Ox 98.2 F 89 18 134/90 96 01/12/18 16:02 01/12/18 03:52 01/12/18 16:02 01/12/18 16:02 01/12/18 16:02 - Additional Data Intake & Output - Last 24 hours: Intake & Output 01/10/18 01/11/18 01/12/18 01/13/18 05:59 05:59 05:59 05:59 Intake Total 5058 / 5058 4554 / 4554 2481 / 2481 720 / 720 Output Total 5050 / 5050 3950 / 3950 3350 / 3350 Balance 604 / 604 -869 / -869 720 / 720 Weight 194 lb 7 oz 194 lb 5 oz 181 lb - Labs 01/08/18 18:08 01/12/18 05:38 Diabetes panel 01/12/18 Range/Units 05:38 Sodium 138 (133-145) mmol/L Potassium 3.7 (3.3-5.1) mmol/L Chloride 103 (96-108) mmol/L Carbon Dioxide 22 (22-30) mmol/L BUN 6 (6-20) mg/dl Creatinine 0.4 L (0.6-1.1) mg/dl Glucose 90 (70-105) mg/dL Calcium 8.4 L (8.6-10.4) mg/dl AST 409 H (0-37) U/l ALT 236 H (0-40) U/l Alkaline Phosphatase 50 (39-117) U/L Total Protein 5.8 L (5.9-8.4) gm/dL Albumin 3.0 L (3.2-5.2) gm/dL Triglycerides 250 H (<150) mg/dl Calcium panel 01/12/18 Range/Units 05:38 Calcium 8.4 L (8.6-10.4) mg/dl Phosphorus 3.8 (2.7-4.5) mg/dL Albumin 3.0 L (3.2-5.2) gm/dL Pituitary panel 01/12/18 Range/Units 05:38 Sodium 138 (133-145) mmol/L Potassium 3.7 (3.3-5.1) mmol/L Chloride 103 (96-108) mmol/L Carbon Dioxide 22 (22-30) mmol/L BUN 6 (6-20) mg/dl Creatinine 0.4 L (0.6-1.1) mg/dl Glucose 90 (70-105) mg/dL Calcium 8.4 L (8.6-10.4) mg/dl Adrenal panel 01/12/18 Range/Units 05:38 Sodium 138 (133-145) mmol/L Potassium 3.7 (3.3-5.1) mmol/L Chloride 103 (96-108) mmol/L Carbon Dioxide 22 (22-30) mmol/L BUN 6 (6-20) mg/dl Creatinine 0.4 L (0.6-1.1) mg/dl Glucose 90 (70-105) mg/dL Calcium 8.4 L (8.6-10.4) mg/dl Total Bilirubin 0.3 (0.0-1.0) mg/dL AST 409 H (0-37) U/l ALT 236 H (0-40) U/l Alkaline Phosphatase 50 (39-117) U/L Total Protein 5.8 L (5.9-8.4) gm/dL Albumin 3.0 L (3.2-5.2) gm/dL Assessment and Plan (1) Rhabdomyolysis Status: Acute Assessment and plan: Status post muscle biopsy of right triceps and right lateral quadriceps; operative sites are unremarkable Current Visit: Yes (2) Disorder characterized by proximal limb muscle weakness Status: Acute Current Visit: Yes - Time Spent With Patient Total time spent is greater than 50% in coordination of care (as documented) at patient's floor/unit and/or counseling patient:
[2018-01-12] MEDS: HEPARIN 5,000 UNIT/ML VIAL SQ SCH ×2 (19:01→22:14)
[2018-01-12] MEDS: AMITRIPTYLINE 10 MG TABLET PO SCH (22:15)
[2018-01-13] MEDS: 0.9 % SODIUM CHLORIDE 1,000 ML IV SCH ×5 (04:24→21:41)
[2018-01-13] MEDS: 0.9 % SODIUM CHLORIDE 10 ML SYRINGE IV SCH ×3 (04:24→20:16)
[2018-01-13] MEDS: PANTOPRAZOLE 40 MG TABLET PO SCH (06:37)
[2018-01-13 06:54] LABS: ALT/SGPT 225 U/l (0-40); Albumin/Globulin Ratio 1.2 (1.0-2.3); Alkaline Phosphatase 50 U/L (39-117); Bilirubin,Direct < 0.2 mg/dL (0.0-0.3); Blood Urea Nitrogen 5 mg/dl (6-20); Gamma Glutamyl Transpeptidase 22 U/L (5-36); Uric Acid 3.1 mg/dL (2.5-8.0)
[2018-01-13 07:09] LABS: Creatine Kinase 9893 IU/L (24-170)
--- NOTE | 2018-01-13 08:10 | Internal Med Progress Note ---
Medical - PN: Subj Patient information: Note initiated : 01/13/18 at 8:04 am Service Date, if different from initiated Date: [] Patient: Shreya Panchal a 27 y/o F admitted on 01/08/18 for Rhabdo last week, labs drawn this am.. Chief Complaint: [] Interval history: Ms. Panchal is a 27 year old F with h/o IBS, on amitryptline for same, presents to the ER today at the recommendation of her PCP. 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 Her muscle aches, pains, fatigue did not go away, she has stifness in the mornings in the shoulders, neck and upper back, she has pain and weakness in both shoulders, she was finding it difficult to comb her own hair, and get dressed by self. Her symptoms got progressively worse throughout the month of November and she decided to seek help at the end of the month. Her primary care physician ordered some labs, noted that she had elevated LFTs, and also elevated CK values, she was admitted to the hospital with a diagnosis of rhabdomyolysis, her CK was around 20,000. She notes she also had a CT scan of the abdomen done the results of which she does not know. The patient was treated with fluids, CK values improved to 13,000, she felt a little bit better but the mild GI stiffness and weakness mostly present. After she was discharged from the hospital the symptoms continued and she continued to drink fluids, she did not go out in the heat. The patient had a repeat lab done which showed her CK had increased she was advised to drink fluids and recheck her CK. The patient came to live with the parents, it was noted that her repeat CK was again 18,000 and she was asked to come to the hospital for further management. The patient notes she has no difficulty in using her fingers are fine motor skills is intact the predominant problem she has is involving the shoulder region and upper back. She also has difficulty in getting up from the sitting position there is pain in both her thighs. She has noticed increase roughness in the fingertips, and some flaking of the skin around her nails. She has noticed rash on her thighs. The patient denies any fever chills headache changes in vision double vision no difficulty in swallowing the patient denies any cough no acute shortness of breath or chest pain no nausea no vomiting no acute abdominal pain no diarrhea constipation no arthralgia sites mentioned above. The patient had been camping once however notes that her symptoms predate the day of camping. The patient denies any use of [id number] medications and herbal supplements for weight loss or any other purpose. The patient has been diagnosed with IBS and she takes amitriptyline for same, she also has been taking OC pills. These medications are not new. The patient takes lactase for lactic acid intolerance. The patient has a history of asthma uses albuterol as needed. The patient had a CK level of around 18,000, repeat CK checked showed CK around 16,000 she has elevated LFTs, patient is being admitted to the hospital for further evaluation and management case was reviewed with Dr. Ortega rheumatology by the ER. 01/09 Pt seen examined, [place] [address]/s proximal muscle weakness present on ivf pt would like to be without the plunkett MRI reviewed, mary inflammation/ edema cxr interpreted as normal plan of care reviewed with pt and family good urine output noted, IV lasix x [address] reviewed from outside hospital, neg for liver pathology hiv, hepatitis a b and c is negative 01/10 Pt seen examined no change in status ck trending down, 11K now esr 30 muscle strenght stable, no dysphagia reported some headache 01/11 Pt seen examined no acute overnight events weakness stable, some improvement on left arm, right arm more painful plan for biopsy today, arm and thigh [place], [id number] on ivf good urine output rheumatology to consult 01/12 no new complaints. biopsy yesterday. occasional hot flashes. 01/13 slept ok, no new complaints. feels weakness in UE's a little better. Review of Systems: denies headache/fever/chills/nausea/vomiting/chest or abdominal pain/cough/ dyspnea/diarrhea. Otherwise see above. - Constitutional Vitals: Vital Signs Temp Pulse Resp BP Pulse Ox 97.9 F 95 H 18 132/77 95 01/13/18 03:49 01/13/18 03:49 01/13/18 03:49 01/13/18 03:49 01/13/18 03:49 Period Temp Pulse Resp BP Sys/An Pulse Ox Last 24 Hr 97.7 F-98.9 F 87-95 18-20 116-134/71-90 95-98 Intake and Output 01/12/18 01/13/18 01/13/18 21:59 05:59 13:59 Intake Total 1550 / 1550 200 / 200 Output Total 850 / 850 350 / 350 Balance 700 / 700 -150 / -150 Weight 188 lb 5 oz Intake & Output: Intake & Output 01/12/18 01/13/18 01/13/18 21:59 05:59 13:59 Intake Total 1550 / 1550 200 / 200 Output Total 850 / 850 350 / 350 Balance 700 / 700 -150 / -150 Weight 188 lb 5 oz Intake: IV 850 / 850 Sodium Chloride 0.9% 1,000 ml @ 850 / 850 100 mls/hr IV .Q10H ABRAHAM Rx#: [id number] Oral 700 / 700 200 / 200 Output: Void Amount 850 / 850 350 / 350 Other: Meal Dinner Percent of Meal Consumed 50% Feeding Ability Independent Exam: General: Alert, Awake, No acute Distress HEENT: EOMI CV: RRR, No murmurs Pulm: Clear b/l, no wheezing/rhonchi/rales Abd: soft, nontender, +BS x4 Ext: no clubbing/cyanosis/edema Neuro: Alert, moves all extremities, b/l UE weakness L>R 3-4/5 Skin: warm/dry, erythematous lesions over knees and hands Medical - PN: Obj Da - Labs CBC & Chem 7: 01/08/18 18:08 01/13/18 04:18 Labs: Abnormal Lab Results 01/13/18 01/13/18 01/12/18 04:18 04:18 05:38 Chloride Carbon Dioxide BUN 5 L Creatinine 0.4 L Calcium AST 424 H ALT 225 H Lactate Dehydrogenase 700 H Total Creatine Kinase 9893 H 7219 H Total Protein 5.5 L Albumin 3.0 L Triglycerides 247 H 01/12/18 01/11/18 01/11/18 05:38 04:10 04:10 Chloride 109 H Carbon Dioxide 21 L BUN Creatinine 0.4 L 0.4 L Calcium 8.4 L 8.4 L AST 409 H 528 H ALT 236 H 248 H Lactate Dehydrogenase 689 H 757 H Total Creatine Kinase 42764 H Total Protein 5.8 L 5.6 L Albumin 3.0 L 3.0 L Triglycerides 250 H 224 H Meds: Medications Acetaminophen (Tylenol) 650 mg PO Q6HP PRN PRN Reason: PAIN/FEVER > 101 Last Admin: 01/12/18 19:07 Dose: 650 mg Albuterol Sulfate (Ventolin) 1 puff INH Q4HP PRN PRN Reason: Shortness Of Breath Amitriptyline HCl (Elavil) 10 mg PO HS [facility] Last Admin: 01/12/18 22:15 Dose: 10 mg Fluticasone Propionate (Flonase) 1 spray NS DAILY [facility] Last Admin: 01/12/18 11:35 Dose: 1 spray Heparin Sodium (Porcine) (Heparin) 5,000 unit SQ Q12 [facility] Last Admin: 01/12/18 22:14 Dose: 5,000 unit Sodium Chloride (Sodium Chloride 0.9%) 1,000 mls @ 100 mls/hr IV .Q10H [facility] Last Admin: 01/13/18 04:24 Dose: Not Given Iron Carb/Multivit/[place]urdett/Folic Acid (Multivitamin W/Minerals) 1 tab PO DAILY [facility] Last Admin: 01/12/18 12:27 Dose: 1 tab Lactobacillus Rhamnosus (Culturelle) 1 cap PO MoWeFr@0900 [facility] Ondansetron HCl (Zofran) 4 mg IV Q6HP PRN PRN Reason: Nausea And Vomiting Oxycodone HCl (Roxicodone) 2.5 - 5 mg PO Q6HP PRN PRN Reason: Pain Pantoprazole Sodium (Protonix) 40 mg PO QAMAC [facility] Last Admin: 01/13/18 06:37 Dose: 40 mg Lactase 9000 Unit (Capsule) 2 dose PO DAILYP PRN PRN Reason: Lactose Intolerance Ocella 3 Mg-0.03 Mg (Tab) 1 dose PO DAILY [facility] Last Admin: 01/12/18 11:35 Dose: 1 dose Promethazine HCl (Phenergan) 12.5 mg IV Q4HP PRN PRN Reason: Nausea And Vomiting Last Admin: 01/11/18 17:56 Dose: 12.5 mg Sodium Chloride (Saline Flush) 10 ml IV Q8 [facility] Last Admin: 01/13/18 04:24 Dose: Not Given Medical - PN: A/P - Time Spent With Patient Total time spent is greater than 50% in coordination of care (as documented) at patient's floor/unit and/or counseling patient: - Narrative A/P Narrative: A: *Rhabdomyolysis/Myositis/dermatomyositis: -muscle biopsy showing -CK 10k<7k<11k< *Asthma: *IBS: on amitriptyline. P: -pending muscle biopsy (will be several weeks) -IVF's decreased rate -Rheum following; steroids per rheumatology, eventual EMG (unable to do inpt, f/ u outpt) -further recs from Rheum: solumedrol 1gm daily x3 days then prednisone 60mg daily; barium swallow upright/recumbent -SAGRARIO + specked pattern, other Rheum labs pending ppx: heparin Medical - PN: Qual - VTE Deep Vein Thrombosis/Pulmonary Embolism Present on Admission: No
[2018-01-13 08:55] LABS: Hepatitis B Core Antibody NON-REACTIVE (NON-REACTIVE)
[2018-01-13] MEDS: OCELLA PO SCH ×2 (09:04→09:06)
[2018-01-13] MEDS: FLUTICASONE PROPIONATE SPRAY.NAS NS SCH (09:05)
[2018-01-13] MEDS: LACTOBACILLUS 1 CAPSULE PO SCH ×2 (09:05→09:25)
[2018-01-13] MEDS: MULTIVIT,THER IRON,CA,FA & MIN 1 TABLET PO SCH (09:05)
[2018-01-13] MEDS: HEPARIN 5,000 UNIT/ML VIAL SQ SCH ×2 (09:06→20:12)
[2018-01-13 09:17] LABS: SCL-7-ANTIBODY <1.0 NEG AI (<1.0 NEG); SSA <1.0 NEG AI (<1.0 NEG); SSB <1.0 NEG AI (<1.0 NEG)
[2018-01-13] MEDS: ACETAMINOPHEN 325 MG TABLET PO PRN (09:21)
[2018-01-13] MEDS: methylPREDNISolone SOD SUCC 1,000 MG in 0.9 % SODIUM CHLORIDE 100 ML IV SCH (12:04)
--- NOTE | 2018-01-13 14:29 | Operative Note ---
DATE OF OPERATION: 01/11/2018 PREOPERATIVE DIAGNOSIS: Acute myositis with rhabdomyolysis. POSTOPERATIVE DIAGNOSIS: Acute myositis with rhabdomyolysis. PROCEDURE: Right triceps muscle biopsy and right quadriceps muscle biopsy. SURGEON: Medina Pool MD DESCRIPTION OF PROCEDURE: Under general anesthesia, the patient's right upper extremity and right lower extremity were prepped and draped. A time-out procedure was carried out as per protocol. Initially, a longitudinal incision was made over the lateral border of the triceps muscle. It was extended through the subcutaneous tissue with electrocautery down to the fascia. The fascia was incised . The muscle was inspected. It appeared to be slightly edematous but otherwise was unremarkable. The fascia was extended for a distance of about 6 cm. Using mosquito forceps a muscle bundle approaching 1 cm was isolated. It was clamped on either end and was divided in the middle with resultant 3.5 cm nonfunctional segment was removed. This was placed on Telfa and placed in a container to be passed off to the person who was going to transfer to the lab. This incision was then clamped and then moved down to the right thigh. The right lateral quadriceps muscle bundle was encountered. A longitudinal incision was made down to the fascia. The fascia was incised about 10 cm. The muscle bundle was bluntly dissected and clamped on either end with Lyndsay clamps. The intervening muscle was excised. It was stretched and measured 3.7 cm. This was placed on moist Telfa and in a separate container. These were passed off to be given to the fourdrinier wire weaver for the lab. The end of the muscle bundles in the thigh were suture ligated with 2-0 Monocryl. The fascia was closed with running 2-0 Monocryl. Subcutaneous tissue was closed with two layers of 2-0 Monocryl. Skin was closed with 4-0 Monocryl subcuticular. After completing closure of the back excision the triceps incision was closed in a like manner. Steri-Strips and Dermabond glue were placed. After they were dry, the incision was covered with Tegaderm. The patient tolerated the procedure well and she was awakened from anesthesia uneventfully, transferred to a bed, and taken to the postanesthetic care unit in stable satisfactory condition. LCS:michaela Job ID: [id number] Doc ID: [id number] Medina Pool M.D.
--- NOTE | 2018-01-13 15:48 | XRay Report ---
CLINICAL INFORMATION: Myositis TECHNIQUE: Single contrast barium was ingested under fluoroscopic observation while spot films were obtained of the esophagus during deglutition in both the upright and prone positions. FINDINGS: Tongue elevation and palate depression are normal resulting in propulsion of the barium bolus into the pharynx. The nasopharyngeus closes normally. Pharyngeal stripping, cricopharyngeal opening, primary peristaltic wave and lower esophageal sphincter all are normal. The epiglottis and vocal cords close normally - no evidence of descending aspiration. The esophagus is normal in contour and caliber without evidence of esophagitis or focal lesion. No hiatal hernia or reflux could be induced. IMPRESSION: Normal esophagram Interpreted and Authenticated by: Cecilio Garcia 01/13/18
[2018-01-13] MEDS: AMITRIPTYLINE 10 MG TABLET PO SCH (20:13)
[2018-01-13] MEDS: oxyCODONE HCL 5 MG TABLET PO PRN (20:13)
[2018-01-14] MEDS: 0.9 % SODIUM CHLORIDE 10 ML SYRINGE IV SCH ×4 (04:02→22:50)
[2018-01-14 07:07] LABS: ALT/SGPT 225 U/l (0-40); Albumin 3.2 gm/dL (3.2-5.2); Albumin/Globulin Ratio 1.3 (1.0-2.3); Alkaline Phosphatase 50 U/L (39-117); Bilirubin,Direct < 0.2 mg/dL (0.0-0.3); Blood Urea Nitrogen 7 mg/dl (6-20); Gamma Glutamyl Transpeptidase 21 U/L (5-36); Uric Acid 2.5 mg/dL (2.5-8.0)
--- NOTE | 2018-01-14 07:53 | Internal Med Progress Note ---
Medical - PN: Subj Patient information: Note initiated : 01/14/18 at 7:49 am Service Date, if different from initiated Date: [] Patient: Shreya Panchal a 27 y/o F admitted on 01/08/18 for Rhabdo last week, labs drawn this am.. Chief Complaint: [] Interval history: Ms. Panchal is a 27 year old F with h/o IBS, on amitryptline for same, presents to the ER today at the recommendation of her PCP. 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 Her muscle aches, pains, fatigue did not go away, she has stifness in the mornings in the shoulders, neck and upper back, she has pain and weakness in both shoulders, she was finding it difficult to comb her own hair, and get dressed by self. Her symptoms got progressively worse throughout the month of November and she decided to seek help at the end of the month. Her primary care physician ordered some labs, noted that she had elevated LFTs, and also elevated CK values, she was admitted to the hospital with a diagnosis of rhabdomyolysis, her CK was around 20,000. She notes she also had a CT scan of the abdomen done the results of which she does not know. The patient was treated with fluids, CK values improved to 13,000, she felt a little bit better but the mild GI stiffness and weakness mostly present. After she was discharged from the hospital the symptoms continued and she continued to drink fluids, she did not go out in the heat. The patient had a repeat lab done which showed her CK had increased she was advised to drink fluids and recheck her CK. The patient came to live with the parents, it was noted that her repeat CK was again 18,000 and she was asked to come to the hospital for further management. The patient notes she has no difficulty in using her fingers are fine motor skills is intact the predominant problem she has is involving the shoulder region and upper back. She also has difficulty in getting up from the sitting position there is pain in both her thighs. She has noticed increase roughness in the fingertips, and some flaking of the skin around her nails. She has noticed rash on her thighs. The patient denies any fever chills headache changes in vision double vision no difficulty in swallowing the patient denies any cough no acute shortness of breath or chest pain no nausea no vomiting no acute abdominal pain no diarrhea constipation no arthralgia sites mentioned above. The patient had been camping once however notes that her symptoms predate the day of camping. The patient denies any use of pxme-zdg-xkjtkiw medications and herbal supplements for weight loss or any other purpose. The patient has been diagnosed with IBS and she takes amitriptyline for same, she also has been taking OC pills. These medications are not new. The patient takes lactase for lactic acid intolerance. The patient has a history of asthma uses albuterol as needed. The patient had a CK level of around 18,000, repeat CK checked showed CK around 16,000 she has elevated LFTs, patient is being admitted to the hospital for further evaluation and management case was reviewed with Dr. Ortega rheumatology by the ER. 01/09 Pt seen examined, [place] [address]/s proximal muscle weakness present on ivf pt would like to be without the plunkett MRI reviewed, mary inflammation/ edema cxr interpreted as normal plan of care reviewed with pt and family good urine output noted, IV lasix x [address] reviewed from outside hospital, neg for liver pathology hiv, hepatitis a b and c is negative 01/10 Pt seen examined no change in status ck trending down, 11K now esr 30 muscle strenght stable, no dysphagia reported some headache 01/11 Pt seen examined no acute overnight events weakness stable, some improvement on left arm, right arm more painful plan for biopsy today, arm and [place], [address] on ivf good urine output rheumatology to consult 01/12 no new complaints. biopsy yesterday. occasional hot flashes. 01/13 slept ok, no new complaints. feels weakness in UE's a little better. 01/14 feeling better today with more energy. More ambulatory. Better appetite last night. Redness to right arm noted early this morning. - Constitutional Vitals: Vital Signs Temp Pulse Resp BP Pulse Ox 98.2 F 89 20 123/79 97 01/14/18 06:45 01/14/18 06:45 01/14/18 06:45 01/14/18 06:45 01/14/18 06:45 Period Temp Pulse Resp BP Sys/An Pulse Ox Last 24 Hr 96.9 F-98.8 F 89-104 18-24 113-149/70-82 95-97 Intake and Output 01/13/18 01/14/18 01/14/18 21:59 05:59 13:59 Intake Total 400 / 400 525 / 525 Output Total 1000 / 1000 1000 / 1000 Balance -600 / -600 -475 / -475 Weight 192 lb Intake & Output: Intake & Output 01/13/18 01/14/18 01/14/18 21:59 05:59 13:59 Intake Total 400 / 400 525 / 525 Output Total 1000 / 1000 1000 / 1000 Balance -600 / -600 -475 / -475 Weight 192 lb Intake: Oral 400 / 400 525 / 525 Output: Void Amount 1000 / 1000 1000 / 1000 Other: Meal Dinner Percent of Meal Consumed 75% Feeding Ability Independent Urine Appearance Clear Cloudy Urine Color Blood Tinged Dark Yellow Urine Odor Normal Exam: General: Alert, Awake, No acute Distress HEENT: EOMI CV: RRR, No murmurs Pulm: Clear b/l, no wheezing/rhonchi/rales Abd: soft, nontender, +BS x4 Ext: no clubbing/cyanosis/edema. Right UE with erythema/warm, not particularly tender. Neuro: Alert, moves all extremities, b/l UE weakness L>R 3-4/5. Skin: warm/dry, erythematous lesions over knees and hands Medical - PN: Obj Da - Labs CBC & Chem 7: 01/08/18 18:08 01/14/18 04:56 Labs: Abnormal Lab Results 01/14/18 01/14/18 01/13/18 04:56 04:56 04:18 Carbon Dioxide 21 L BUN Creatinine 0.3 L Glucose 132 H Calcium AST 356 H ALT 225 H Lactate Dehydrogenase 692 H Total Creatine Kinase 7259 H 9893 H Total Protein 5.7 L Albumin Triglycerides 193 H SAGRARIO Screen SAGRARIO Titer SAGRARIO Pattern 01/13/18 01/12/18 01/12/18 04:18 05:38 05:38 Carbon Dioxide BUN 5 L Creatinine 0.4 L 0.4 L Glucose Calcium 8.4 L AST 424 H 409 H ALT 225 H 236 H Lactate Dehydrogenase 700 H 689 H Total Creatine Kinase 7219 H Total Protein 5.5 L 5.8 L Albumin 3.0 L 3.0 L Triglycerides 247 H 250 H SAGRARIO Screen SAGRARIO Titer SAGRARIO Pattern 01/08/18 20:27 Carbon Dioxide BUN Creatinine Glucose Calcium AST ALT Lactate Dehydrogenase Total Creatine Kinase Total Protein Albumin Triglycerides SAGRARIO Screen Positive A SAGRARIO Titer 1:640 A SAGRARIO Pattern Speckled A Meds: Medications Acetaminophen (Tylenol) 650 mg PO Q6HP PRN PRN Reason: PAIN/FEVER > 101 Last Admin: 01/13/18 09:21 Dose: 650 mg Albuterol Sulfate (Ventolin) 1 puff INH Q4HP PRN PRN Reason: Shortness Of Breath Amitriptyline HCl (Elavil) 10 mg PO HS [facility] Last Admin: 01/13/18 20:13 Dose: 10 mg Fluticasone Propionate (Flonase) 1 spray NS DAILY [facility] Last Admin: 01/13/18 09:05 Dose: 1 spray Heparin Sodium (Porcine) (Heparin) 5,000 unit SQ Q12 [facility] Last Admin: 01/13/18 20:12 Dose: 5,000 unit Methylprednisolone Sodium Succinate 1,000 mg/ Sodium Chloride 100 mls @ 100 mls /hr IV DAILY [facility] Stop: 01/15/18 09:59 Last Infusion: 01/13/18 13:30 Dose: Infused Sodium Chloride (Sodium Chloride 0.9%) 1,000 mls @ 84 mls/hr IV .[id number] [facility] Last Admin: 01/13/18 21:41 Dose: Not Given Iron Carb/Multivit/Mcnab/Folic Acid (Multivitamin W/Minerals) 1 tab PO DAILY [facility] Last Admin: 01/13/18 09:05 Dose: 1 tab Lactobacillus Rhamnosus (Culturelle) 1 cap PO MoWeFr@0900 [facility] Last Admin: 01/13/18 09:25 Dose: Not Given Ondansetron HCl (Zofran) 4 mg IV Q6HP PRN PRN Reason: Nausea And Vomiting Last Admin: 01/13/18 13:38 Dose: 4 mg Oxycodone HCl (Roxicodone) 2.5 - 5 mg PO Q6HP PRN PRN Reason: Pain Last Admin: 01/13/18 20:13 Dose: 2.5 mg Pantoprazole Sodium (Protonix) 40 mg PO QAMAC [facility] Last Admin: 01/13/18 06:37 Dose: 40 mg Lactase 9000 Unit (Capsule) 2 dose PO DAILYP PRN PRN Reason: Lactose Intolerance Ocella 3 Mg-0.03 Mg (Tab) 1 dose PO DAILY [facility] Last Admin: 01/13/18 09:06 Dose: 1 dose Prednisone (Prednisone) 60 mg PO [facility] Promethazine HCl (Phenergan) 12.5 mg IV Q4HP PRN PRN Reason: Nausea And Vomiting Last Admin: 01/11/18 17:56 Dose: 12.5 mg Sodium Chloride (Saline Flush) 10 ml IV Q8 [facility] Last Admin: 01/14/18 04:02 Dose: Not Given Medical - PN: A/P - Time Spent With Patient Total time spent is greater than 50% in coordination of care (as documented) at patient's floor/unit and/or counseling patient: - Narrative A/P Narrative: A: *Rhabdomyolysis/Myositis/dermatomyositis: -muscle biopsy showing -barium swallow normal -CK 7k<10k<7k<11k< *Erythema near Biopsy site but not overlying: warm but not particularly tender: ?infection vs ?rxn *Asthma: *IBS: on amitriptyline. P: -pending muscle biopsy (will be several weeks) -IVF's decrease rate -Rheum following; steroids per rheumatology, eventual EMG (unable to do inpt, f/ u outpt) -further recs from Rheum: solumedrol 1gm daily x3 days then prednisone 60mg daily; -SAGRARIO + specked pattern, other Rheum labs pending -monitor arm closely ppx: heparin Medical - PN: Qual - VTE Deep Vein Thrombosis/Pulmonary Embolism Present on Admission: No
[2018-01-14] MEDS ORDERED: MAGNESIUM HYDROXIDE 30 ML ORAL.SUSP PO PRN (08:17)
[2018-01-14] MEDS: methylPREDNISolone SOD SUCC 1,000 MG in 0.9 % SODIUM CHLORIDE 100 ML IV SCH (08:18)
[2018-01-14] MEDS: MULTIVIT,THER IRON,CA,FA & MIN 1 TABLET PO SCH (08:18)
[2018-01-14] MEDS: HEPARIN 5,000 UNIT/ML VIAL SQ SCH ×2 (08:18→21:47)
[2018-01-14] MEDS: PANTOPRAZOLE 40 MG TABLET PO SCH (08:18)
[2018-01-14] MEDS: FLUTICASONE PROPIONATE SPRAY.NAS NS SCH (08:19)
[2018-01-14] MEDS: OCELLA PO SCH (08:19)
[2018-01-14] MEDS: ACETAMINOPHEN 325 MG TABLET PO PRN ×2 (08:33→16:29)
[2018-01-14] MEDS: DOCUSATE SODIUM 100 MG CAPSULE PO SCH ×2 (08:53→21:45)
[2018-01-14] MEDS: 0.9 % SODIUM CHLORIDE 1,000 ML IV SCH (11:17)
[2018-01-14 11:33] LABS: ANCA Screen NEGATIVE; Myeloperoxidase Antibody <1.0
[2018-01-14] MEDS ORDERED: diphenhydrAMINE 25 MG CAPSULE PO ONE (11:49)
[2018-01-14] MEDS ORDERED: 0.9 % SODIUM CHLORIDE 1,000 ML IV SCH ×2 (20:14→20:17)
[2018-01-14] MEDS: AMITRIPTYLINE 10 MG TABLET PO SCH (21:45)
[2018-01-14] MEDS: oxyCODONE HCL 5 MG TABLET PO PRN (21:45)
[2018-01-14] MEDS ORDERED: diphenhydrAMINE 25 MG CAPSULE ONE (22:54)
[2018-01-15] MEDS: 0.9 % SODIUM CHLORIDE 10 ML SYRINGE IV SCH ×3 (05:38→21:20)
[2018-01-15] MEDS: diphenhydrAMINE 25 MG CAPSULE PO PRN (06:28)
[2018-01-15] MEDS: PANTOPRAZOLE 40 MG TABLET PO SCH (06:28)
[2018-01-15 06:50] LABS: Mean Cell Volume 86.5 fL (80.0-100.0); Mean Corpuscular HGB Conc 33.8 g/dL (31.0-36.0); Mean Corpuscular Hemoglobin 29.2 pg (26.0-34.0); Platelet Count 166 K/mcL (140-440); RBC 4.15 M/mcL (4.00-5.20); Red Cell Distribution Width 13.1 % (11.5-14.5)
[2018-01-15 07:17] LABS: ALT/SGPT 211 U/l (0-40); Albumin 3.3 gm/dL (3.2-5.2); Albumin/Globulin Ratio 1.4 (1.0-2.3); Alkaline Phosphatase 44 U/L (39-117); Bilirubin,Direct < 0.2 mg/dL (0.0-0.3); Blood Urea Nitrogen 11 mg/dl (6-20); Gamma Glutamyl Transpeptidase 20 U/L (5-36); Uric Acid 2.6 mg/dL (2.5-8.0)
[2018-01-15 07:32] LABS: Creatine Kinase 5040 IU/L (24-170)
--- NOTE | 2018-01-15 07:36 | Internal Med Progress Note ---
Medical - PN: Subj Patient information: Note initiated : 01/15/18 at 7:32 am Service Date, if different from initiated Date: [] Patient: Shreya Panchal a 27 y/o F admitted on 01/08/18 for Rhabdo last week, labs drawn this am.. Chief Complaint: [] Interval history: Ms. Panchal is a 27 year old F with h/o IBS, on amitryptline for same, presents to the ER today at the recommendation of her PCP. 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 Her muscle aches, pains, fatigue did not go away, she has stifness in the mornings in the shoulders, neck and upper back, she has pain and weakness in both shoulders, she was finding it difficult to comb her own hair, and get dressed by self. Her symptoms got progressively worse throughout the month of November and she decided to seek help at the end of the month. Her primary care physician ordered some labs, noted that she had elevated LFTs, and also elevated CK values, she was admitted to the hospital with a diagnosis of rhabdomyolysis, her CK was around 20,000. She notes she also had a CT scan of the abdomen done the results of which she does not know. The patient was treated with fluids, CK values improved to 13,000, she felt a little bit better but the mild GI stiffness and weakness mostly present. After she was discharged from the hospital the symptoms continued and she continued to drink fluids, she did not go out in the heat. The patient had a repeat lab done which showed her CK had increased she was advised to drink fluids and recheck her CK. The patient came to live with the parents, it was noted that her repeat CK was again 18,000 and she was asked to come to the hospital for further management. The patient notes she has no difficulty in using her fingers are fine motor skills is intact the predominant problem she has is involving the shoulder region and upper back. She also has difficulty in getting up from the sitting position there is pain in both her thighs. She has noticed increase roughness in the fingertips, and some flaking of the skin around her nails. She has noticed rash on her thighs. The patient denies any fever chills headache changes in vision double vision no difficulty in swallowing the patient denies any cough no acute shortness of breath or chest pain no nausea no vomiting no acute abdominal pain no diarrhea constipation no arthralgia sites mentioned above. The patient had been camping once however notes that her symptoms predate the day of camping. The patient denies any use of [id number] medications and herbal supplements for weight loss or any other purpose. The patient has been diagnosed with IBS and she takes amitriptyline for same, she also has been taking OC pills. These medications are not new. The patient takes lactase for lactic acid intolerance. The patient has a history of asthma uses albuterol as needed. The patient had a CK level of around 18,000, repeat CK checked showed CK around 16,000 she has elevated LFTs, patient is being admitted to the hospital for further evaluation and management case was reviewed with Dr. Ortega rheumatology by the ER. 01/09 Pt seen examined, [place] [address]/s proximal muscle weakness present on ivf pt would like to be without the plunkett MRI reviewed, mary inflammation/ edema cxr interpreted as normal plan of care reviewed with pt and family good urine output noted, IV lasix x [address] reviewed from outside hospital, neg for liver pathology hiv, hepatitis a b and c is negative 01/10 Pt seen examined no change in status ck trending down, 11K now esr 30 muscle strenght stable, no dysphagia reported some headache 01/11 Pt seen examined no acute overnight events weakness stable, some improvement on left arm, right arm more painful plan for biopsy today, [place], [id number] on ivf good urine output rheumatology to consult 01/12 no new complaints. biopsy yesterday. occasional hot flashes. 01/13 slept ok, no new complaints. feels weakness in UE's a little better. 01/14 feeling better today with more energy. More ambulatory. Better appetite last night. Redness to right arm noted early this morning. 01/15 complained of fluid retention last night, some better this morning with ALEJO's placed last night. Rash to right arm then later right leg both responsive to Diphenhydramine. Stronger able to use right arm to brush her teeth able to lift her right leg more. - Constitutional Vitals: Vital Signs Temp Pulse Resp BP Pulse Ox 99.1 F H 82 15 126/74 97 01/15/18 06:34 01/15/18 06:34 01/15/18 06:34 01/15/18 06:34 01/15/18 06:34 Period Temp Pulse Resp BP Sys/An Pulse Ox Last 24 Hr 96.5 F-99.1 F 69-98 14-20 104-142/65-83 94-97 Intake and Output 01/14/18 01/15/18 01/15/18 21:59 05:59 13:59 Intake Total 1780 / 1780 210 / 210 Output Total 2450 / 2450 1100 / 1100 100 / 100 Balance -670 / -670 -890 / -890 -100 / -100 Weight 194 lb Intake & Output: Intake & Output 01/14/18 01/15/18 01/15/18 21:59 05:59 13:59 Intake Total 1780 / 1780 210 / 210 Output Total 2450 / 2450 1100 / 1100 100 / 100 Balance -670 / -670 -890 / -890 -100 / -100 Weight 194 lb Intake: IV 500 / 500 60 / 60 Sodium Chloride 0.9% 1,000 ml @ 500 / 500 60 / 60 25 mls/hr IV .Q24H [facility] Rx#: [id number] Oral 1280 / 1280 150 / 150 Output: Void Amount 2450 / 2450 1100 / 1100 100 / 100 Other: Urine Appearance Cloudy Urine Color Bright Yellow Urine Odor Normal # Voids 1 Exam: General: Alert, Awake, No acute Distress HEENT: EOMI CV: RRR, No murmurs Pulm: Clear b/l, no wheezing/rhonchi/rales Abd: soft, nontender, +BS x4 Ext: no clubbing/cyanosis/edema. Right UE with erythema/warm, not particularly tender. Neuro: Alert, moves all extremities, b/l UE weakness L>R 3-4/5. Skin: warm/dry, erythematous lesions over knees and hands improved. diffuse homogenous erythematous rash upper extermities and chest Medical - PN: Obj Da - Labs CBC & Chem 7: 01/15/18 05:26 01/15/18 05:26 Labs: Abnormal Lab Results 01/15/18 01/15/18 01/14/18 05:26 05:26 04:56 WBC 12.2 H Hct 35.9 L Carbon Dioxide BUN Creatinine 0.4 L Glucose AST 275 H ALT 211 H Lactate Dehydrogenase 624 H Total Creatine Kinase 7259 H Total Protein 5.7 L Albumin Triglycerides Aldolase Cycl Citrul Peptide IgG SAGR[place]IO Screen SAGRARIO Titer S[place]RARIO Pattern 01/14/18 01/13/18 01/13/18 04:56 04:18 04:18 WBC Hct Carbon Dioxide 21 L BUN 5 L Creatinine 0.3 L 0.4 L Glucose 132 H AST 356 H 424 H ALT 225 H 225 H Lactate Dehydrogenase 692 H 700 H Total Creatine Kinase 9893 H Total Protein 5.7 L 5.5 L Albumin 3.0 L Triglycerides 193 H 247 H Aldolase Cycl Citrul Peptide IgG [place] Screen S[place]RARIO Titer S[place]IO Pattern 01/12/18 01/09/18 01/09/18 05:38 04:20 04:20 WBC Hct Carbon Dioxide BUN Creatinine Glucose AST ALT Lactate Dehydrogenase Total Creatine Kinase 7219 H Total Protein Albumin Triglycerides Aldolase 107.4 H Cycl Citrul Peptide IgG 28 H [place] Screen [place] Titer [place] Pattern 01/08/18 20:27 WBC Hct Carbon Dioxide BUN Creatinine Glucose AST ALT Lactate Dehydrogenase Total Creatine Kinase Total Protein Albumin Triglycerides Aldolase Cycl Citrul Peptide IgG [place] Screen Positive A S[place]IO Titer 1:640 A [place] Pattern Speckled A Meds: Medications Acetaminophen (Tylenol) 650 mg PO Q6HP PRN PRN Reason: PAIN/FEVER > 101 Last Admin: 01/14/18 16:29 Dose: 650 mg Albuterol Sulfate (Ventolin) 1 puff INH Q4HP PRN PRN Reason: Shortness Of Breath Amitriptyline HCl (Elavil) 10 mg PO HS [facility] Last Admin: 01/14/18 21:45 Dose: 10 mg Diphenhydramine HCl (Benadryl) 25 mg PO Q6HP PRN PRN Reason: Allergic Symptoms Last Admin: 01/15/18 06:28 Dose: 25 mg Docusate Sodium (Colace) 100 mg PO BID [facility] Last Admin: 01/14/18 21:45 Dose: 100 mg Fluticasone Propionate (Flonase) 1 spray NS DAILY [facility] Last Admin: 01/14/18 08:19 Dose: 1 spray Heparin Sodium (Porcine) (Heparin) 5,000 unit SQ Q12 [facility] Last Admin: 01/14/18 21:47 Dose: 5,000 unit Methylprednisolone Sodium Succinate 1,000 mg/ Sodium Chloride 100 mls @ 100 mls /hr IV DAILY [facility] Stop: 01/15/18 09:59 Last Infusion: 01/14/18 09:10 Dose: Infused Iron Carb/Multivit/Insulation Worker Apprentice/Folic Acid (Multivitamin W/Minerals) 1 tab PO DAILY [facility] Last Admin: 01/14/18 08:18 Dose: 1 tab Lactobacillus Rhamnosus (Culturelle) 1 cap PO MoWeFr@0900 [facility] Last Admin: 01/13/18 09:25 Dose: Not Given Magnesium Hydroxide (Milk Of Magnesia) 30 ml PO DAILYP PRN PRN Reason: Constipation Ondansetron HCl (Zofran) 4 mg IV Q6HP PRN PRN Reason: Nausea And Vomiting Last Admin: 01/13/18 13:38 Dose: 4 mg Oxycodone HCl (Roxicodone) 2.5 - 5 mg PO Q6HP PRN PRN Reason: Pain Last Admin: 01/14/18 21:45 Dose: 2.5 mg [facility]) [facility] Last Admin: 01/15/18 06:28 Dose: 40 mg Lactase 9000 Unit (Capsule) 2 dose PO DAILYP PRN PRN Reason: Lactose Intolerance Ocella 3 Mg-0.03 Mg (Tab) 1 dose PO DAILY [facility] Last Admin: 01/14/18 08:19 Dose: 1 dose Prednisone (Prednisone) 60 mg PO [facility] Promethazine HCl (Phenergan) 12.5 mg IV Q4HP PRN PRN Reason: Nausea And Vomiting Last Admin: 01/11/18 17:56 Dose: 12.5 mg Sodium Chloride (Saline Flush) 10 ml IV Q8 [facility] Last Admin: 01/15/18 05:38 Dose: 10 ml Medical - PN: A/P - Time Spent With Patient Total time spent is greater than 50% in coordination of care (as documented) at patient's floor/unit and/or counseling patient: - Narrative A/P Narrative: A: *Rhabdomyolysis/Myositis/dermatomyositis: -muscle biopsy showing -barium swallow normal -CK 5k<7k<10k<7k<11k<<16k *Homogenous Erythematous smooth rash arms and chest: waxes/wanes and responds to diphenhydramine, nontender. -only new med is solumedrol *Asthma: *IBS: on amitriptyline. P: -pending muscle biopsy (will be several weeks) -decrease/stop IVF's for fluid retention -trend CK -Rheum following; steroids per rheumatology, eventual EMG (unable to do inpt, f/ u outpt) -further recs from Rheum: solumedrol 1gm daily x3 days then prednisone 60mg daily; -SAGRARIO + specked pattern, other Rheum labs pending - -ppx: heparin Medical - PN: Qual - VTE Deep Vein Thrombosis/Pulmonary Embolism Present on Admission: No
[2018-01-15 08:12] LABS: Lymphocytes % 12 % (15-49); Monocytes % (Manual) 9 % (1-12); Platelet Estimate NORMAL (NORMAL); RBC Morphology NORMAL (NORMAL); Segmented Neutrophils % 79 % (38-78)
[2018-01-15] MEDS: methylPREDNISolone SOD SUCC 1,000 MG in 0.9 % SODIUM CHLORIDE 100 ML IV SCH (09:16)
[2018-01-15] MEDS: MULTIVIT,THER IRON,CA,FA & MIN 1 TABLET PO SCH (09:16)
[2018-01-15] MEDS: FLUTICASONE PROPIONATE SPRAY.NAS NS SCH (09:16)
[2018-01-15] MEDS: DOCUSATE SODIUM 100 MG CAPSULE PO SCH ×2 (09:16→21:19)
[2018-01-15] MEDS: LACTOBACILLUS 1 CAPSULE PO SCH (09:16)
[2018-01-15] MEDS: OCELLA PO SCH (09:16)
[2018-01-15] MEDS: ACETAMINOPHEN 325 MG TABLET PO PRN ×2 (09:17→16:21)
[2018-01-15] MEDS: HEPARIN 5,000 UNIT/ML VIAL SQ SCH ×2 (09:17→21:19)
[2018-01-15] MEDS: FAMOTIDINE 20 MG TABLET PO SCH ×2 (11:42→21:19)
[2018-01-15] MEDS: AMITRIPTYLINE 10 MG TABLET PO SCH (21:19)
[2018-01-15] MEDS: oxyCODONE HCL 5 MG TABLET PO PRN (21:20)
[2018-01-15] MEDS: diphenhydrAMINE 50 MG/ML VIAL IV PRN (21:20)
[2018-01-16] MEDS: 0.9 % SODIUM CHLORIDE 10 ML SYRINGE IV SCH ×3 (04:15→20:15)
[2018-01-16] MEDS: PANTOPRAZOLE 40 MG TABLET PO SCH (07:11)
[2018-01-16] MEDS: diphenhydrAMINE 25 MG CAPSULE PO PRN (07:11)
--- NOTE | 2018-01-16 07:35 | Internal Med Progress Note ---
Medical - PN: Subj Patient information: Note initiated : 01/16/18 at 7:30 am Service Date, if different from initiated Date: [] Patient: Shreya Panchal a 27 y/o F admitted on 01/08/18 for Rhabdo last week, labs drawn this am.. Chief Complaint: [] Interval history: Ms. Panchal is a 27 year old F with h/o IBS, on amitryptline for same, presents to the ER today at the recommendation of her PCP. 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 Her muscle aches, pains, fatigue did not go away, she has stifness in the mornings in the shoulders, neck and upper back, she has pain and weakness in both shoulders, she was finding it difficult to comb her own hair, and get dressed by self. Her symptoms got progressively worse throughout the month of November and she decided to seek help at the end of the month. Her primary care physician ordered some labs, noted that she had elevated LFTs, and also elevated CK values, she was admitted to the hospital with a diagnosis of rhabdomyolysis, her CK was around 20,000. She notes she also had a CT scan of the abdomen done the results of which she does not know. The patient was treated with fluids, CK values improved to 13,000, she felt a little bit better but the mild GI stiffness and weakness mostly present. After she was discharged from the hospital the symptoms continued and she continued to drink fluids, she did not go out in the heat. The patient had a repeat lab done which showed her CK had increased she was advised to drink fluids and recheck her CK. The patient came to live with the parents, it was noted that her repeat CK was again 18,000 and she was asked to come to the hospital for further management. The patient notes she has no difficulty in using her fingers are fine motor skills is intact the predominant problem she has is involving the shoulder region and upper back. She also has difficulty in getting up from the sitting position there is pain in both her thighs. She has noticed increase roughness in the fingertips, and some flaking of the skin around her nails. She has noticed rash on her thighs. The patient denies any fever chills headache changes in vision double vision no difficulty in swallowing the patient denies any cough no acute shortness of breath or chest pain no nausea no vomiting no acute abdominal pain no diarrhea constipation no arthralgia sites mentioned above. The patient had been camping once however notes that her symptoms predate the day of camping. The patient denies any use of [id number] medications and herbal supplements for weight loss or any other purpose. The patient has been diagnosed with IBS and she takes amitriptyline for same, she also has been taking OC pills. These medications are not new. The patient takes lactase for lactic acid intolerance. The patient has a history of asthma uses albuterol as needed. The patient had a CK level of around 18,000, repeat CK checked showed CK around 16,000 she has elevated LFTs, patient is being admitted to the hospital for further evaluation and management case was reviewed with Dr. Ortega rheumatology by the ER. 01/09 Pt seen examined, [place] [address]/s proximal muscle weakness present on ivf pt would like to be without the plunkett MRI reviewed, mary inflammation/ edema cxr interpreted as normal plan of care reviewed with pt and family good urine output noted, IV lasix x [address] reviewed from outside hospital, neg for liver pathology hiv, hepatitis a b and c is negative 01/10 Pt seen examined no change in status ck trending down, 11K now esr 30 muscle strenght stable, no dysphagia reported some headache 01/11 Pt seen examined no acute overnight events weakness stable, some improvement on left arm, right arm more painful plan for biopsy today, arm and thigh [place], [id number] on ivf good urine output rheumatology to consult 01/12 no new complaints. biopsy yesterday. occasional hot flashes. 01/13 slept ok, no new complaints. feels weakness in UE's a little better. 01/14 feeling better today with more energy. More ambulatory. Better appetite last night. Redness to right arm noted early this morning. 01/15 complained of fluid retention last night, some better this morning with ALEJO's placed last night. Rash to right arm then later right leg both responsive to Diphenhydramine. Stronger able to use right arm to brush her teeth able to lift her right leg more. 01/16 slept well. feeling a little better each day, swelling in legs improving. had some flushing this morning after she woke up Review of Systems: denies headache/fever/chills/nausea/vomiting/chest or abdominal pain/cough/ dyspnea/diarrhea. Otherwise see above. - Constitutional Vitals: Vital Signs Temp Pulse Resp BP Pulse Ox 97.8 F 78 16 124/80 96 01/16/18 06:55 01/16/18 04:00 01/16/18 06:55 01/16/18 06:55 01/16/18 06:55 Period Temp Pulse Resp BP Sys/An Pulse Ox Last 24 Hr 97.6 F-100.0 F 78-93 - 121-132/74-82 96-97 Intake and Output 01/15/18 01/16/18 01/16/18 21:59 05:59 13:59 Intake Total 700 / 700 150 / 150 Output Total 2200 / 2200 400 / 400 400 / 400 Balance -1500 / -1500 -250 / -250 -400 / -400 Weight 86.863 kg Intake & Output: Intake & Output 01/15/18 01/16/18 01/16/18 21:59 05:59 13:59 Intake Total 700 / 700 150 / 150 Output Total 2200 / 2200 400 / 400 400 / 400 Balance -1500 / -1500 -250 / -250 -400 / -400 Weight 86.863 kg Intake: Oral 700 / 700 150 / 150 Output: Void Amount 2200 / 2200 400 / 400 400 / 400 Other: Meal Dinner Percent of Meal Consumed 75% Feeding Ability Independent Urine Appearance Clear Urine Color Bright Yellow Dark Yellow Urine Odor Normal Normal # Voids 1 # Bowel Movements 1 Exam: General: Alert, Awake, No acute Distress HEENT: EOMI CV: RRR, No murmurs Pulm: Clear b/l, no wheezing/rhonchi/rales Abd: soft, nontender, +BS x4 Ext: no clubbing/cyanosis, trace b/l LE edema Neuro: Alert, moves all extremities, b/l UE weakness 4/5. Skin: warm/dry, erythematous lesions over knees and hands improved. Medical - PN: Obj Da - Labs CBC & Chem 7: 01/15/18 05:26 01/16/18 08:05 Labs: Abnormal Lab Results 01/15/18 01/15/18 01/15/18 05:26 05:26 05:26 WBC 12.2 H Hct 35.9 L Seg Neutrophils % 79 H Lymphocytes % 12 L Carbon Dioxide Creatinine 0.4 L Glucose AST 275 H ALT 211 H Lactate Dehydrogenase 624 H Total Creatine Kinase 5040 H Total Protein 5.7 L Triglycerides Aldolase Cycl Citrul Peptide IgG S[place] Screen S[place] Titer [place] Pattern 01/14/18 01/14/18 01/09/18 04:56 04:56 04:20 WBC Hct Seg Neutrophils % Lymphocytes % Carbon Dioxide 21 L Creatinine 0.3 L Glucose 132 H AST 356 H ALT 225 H Lactate Dehydrogenase 692 H Total Creatine Kinase 7259 H Total Protein 5.7 L Triglycerides 193 H Aldolase Cycl Citrul Peptide IgG 28 H [place] Screen S[place] Titer S[place] Pattern 01/09/18 01/08/18 04:20 20:27 WBC Hct Seg Neutrophils % Lymphocytes % Carbon Dioxide Creatinine Glucose AST ALT Lactate Dehydrogenase Total Creatine Kinase Total Protein Triglycerides Aldolase 107.4 H Cycl Citrul Peptide IgG [place] Screen Positive A [place] Titer 1:640 A [place] Pattern Speckled A Meds: Medications Acetaminophen (Tylenol) 650 mg PO Q6HP PRN PRN Reason: PAIN/FEVER > 101 Last Admin: 01/15/18 16:21 Dose: 650 mg Albuterol Sulfate (Ventolin) 1 puff INH Q4HP PRN PRN Reason: Shortness Of Breath Amitriptyline HCl (Elavil) 10 mg PO HS [facility] Last Admin: 01/15/18 21:19 Dose: 10 mg Diphenhydramine HCl (Benadryl) 25 mg PO Q6HP PRN PRN Reason: Allergic Symptoms Last Admin: 01/16/18 07:11 Dose: 25 mg Diphenhydramine HCl (Benadryl) 25 mg IV Q6HP PRN PRN Reason: Allergic Symptoms Last Admin: 01/15/18 21:20 Dose: 25 mg Docusate Sodium (Colace) 100 mg PO BID [facility] Last Admin: 01/15/18 21:19 Dose: 100 mg Famotidine (Pepcid) 20 mg PO BID [facility] Stop: 01/16/18 21:01 Last Admin: 01/15/18 21:19 Dose: 20 mg Fluticasone Propionate (Flonase) 1 spray NS DAILY [facility] Last Admin: 01/15/18 09:16 Dose: 1 spray Heparin Sodium (Porcine) (Heparin) 5,000 unit SQ Q12 [facility] Last Admin: 01/15/18 21:19 Dose: 5,000 unit Iron Carb/Multivit/[place]/Folic Acid (Multivitamin W/Minerals) 1 tab PO DAILY [facility] Last Admin: 01/15/18 09:16 Dose: 1 tab Lactobacillus Rhamnosus (Culturelle) 1 cap PO MoWeFr@0900 [facility] Last Admin: 01/15/18 09:16 Dose: 1 cap Magnesium Hydroxide (Milk Of Magnesia) 30 ml PO DAILYP PRN PRN Reason: Constipation Ondansetron HCl (Zofran) 4 mg IV Q6HP PRN PRN Reason: Nausea And Vomiting Last Admin: 01/13/18 13:38 Dose: 4 mg Oxycodone HCl (Roxicodone) 2.5 - 5 mg PO Q6HP PRN PRN Reason: Pain Last Admin: 01/15/18 21:20 Dose: 2.5 mg [facility] Last Admin: 01/16/18 07:11 Dose: 40 mg Lactase 9000 Unit (Capsule) 2 dose PO DAILYP PRN PRN Reason: Lactose Intolerance Ocella 3 Mg-0.03 Mg (Tab) 1 dose PO DAILY [facility] Last Admin: 01/15/18 09:16 Dose: 1 dose [facility]Pred[facility]) [facility] Promethazine HCl (Phenergan) 12.5 mg IV Q4HP PRN PRN Reason: Nausea And Vomiting Last Admin: 01/11/18 17:56 Dose: 12.5 mg Sodium Chloride (Saline Flush) 10 ml IV Q8 [facility] Last Admin: 01/16/18 04:15 Dose: 10 ml Medical - PN: A/P - Time Spent With Patient Total time spent is greater than 50% in coordination of care (as documented) at patient's floor/unit and/or counseling patient: - Narrative A/P Narrative: A: *Rhabdomyolysis/Myositis/dermatomyositis: -muscle biopsy showing -barium swallow normal -CK 5k<7k<10k<7k<11k<<16k *Homogenous Erythematous smooth rash arms and chest: waxes/wanes and responds to diphenhydramine, nontender. -suspect from IV solumedrol *Asthma: *IBS: on amitriptyline. P: -pending muscle biopsy (will be several weeks) - -trend CK -Rheum following; steroids per rheumatology, eventual EMG (unable to do inpt, f/ u outpt) -solumedrol 3 day course finished, start prednisone 60mg daily; if reaction continues with prednisone will d/w Rheum, prn benadryl -SAGRARIO + specked pattern, other Rheum labs pending - -ppx: heparin Medical - PN: Qual - VTE Deep Vein Thrombosis/Pulmonary Embolism Present on Admission: No
[2018-01-16] MEDS: FAMOTIDINE 20 MG TABLET PO SCH ×2 (08:43→20:31)
[2018-01-16] MEDS: DOCUSATE SODIUM 100 MG CAPSULE PO SCH ×2 (08:43→20:31)
[2018-01-16] MEDS: OCELLA PO SCH (08:43)
[2018-01-16] MEDS: MULTIVIT,THER IRON,CA,FA & MIN 1 TABLET PO SCH (08:43)
[2018-01-16] MEDS: predniSONE 20 MG TABLET PO SCH (08:43)
[2018-01-16] MEDS: FLUTICASONE PROPIONATE SPRAY.NAS NS SCH (08:44)
[2018-01-16] MEDS: ACETAMINOPHEN 325 MG TABLET PO PRN ×2 (08:44→15:34)
[2018-01-16] MEDS: HEPARIN 5,000 UNIT/ML VIAL SQ SCH ×2 (08:46→20:32)
[2018-01-16 08:50] LABS: ALT/SGPT 243 U/l (0-40); Albumin 3.6 gm/dL (3.2-5.2); Albumin/Globulin Ratio 1.3 (1.0-2.3); Alkaline Phosphatase 49 U/L (39-117); Blood Urea Nitrogen 12 mg/dl (6-20)
[2018-01-16 09:06] LABS: Creatine Kinase 5372 IU/L (24-170)
--- NOTE | 2018-01-16 10:59 | Discharge Summary ---
Medical - DS: Prov Patient information: Note initiated : 01/16/18 at 10:57 am Service Date, if different from initiated Date: [] Patient: Shreya Panchal 27 y/o F admitted on 01/08/18 for Rhabdo last week, labs drawn this am.. Chief Complaint: [] Date of admission: 01/08/18 20:07 Primary care physician: PCP No Consults: 01/08/18 18:59 Consult to Physician [CONS] Stat Comment: Consulting Provider: Jerrell Uribe Reason For Exam: Physician to Consult 01/09/18 13:13 Consult to Physician [CONS] Routine Comment: Consulting Provider: Medina Pool Reason For Exam: Physician to Consult 01/14/18 06:38 Consult to Physician [CONS] Routine Comment: Consulting Provider: Renee Everett Reason For Exam: Physician to Consult Medical - DS: Meds - Discharge Medications Prescriptions: predniSONE [Prednisone] 60 mg [facility] [place] tab Active and Home Medications: Home Medications Albuterol Sulfate [Ventolin] 1 puff INH Q4HP PRN 01/08/18 [History Confirmed 03/18 Last Taken 12/29/17] Amitriptyline [Elavil] 10 mg PO HS 01/08/18 [History Confirmed 01/08/18 Last Taken 01/07/18 21:00] Ethinyl Estradiol/Drospirenone [Ocella 3 mg-0.03 mg Tablet] 1 tab PO QDAY [History Confirmed 01/08/18 Last Taken 01/08/18 07:30] Fluticasone/Salmeterol [Fluticasone-Salmeterol 55-14] 1 spray NS QDAY 01/08/18 [ History Confirmed 01/08/18 Last Taken 01/08/18 08:00] L.acidoph,Paracasei, B.lactis [Probiotic] 1 each PO 3XW 01/08/18 [History Confirmed 01/08/18 Last Taken 01/06/18 07:00] Lactase [Lactaid Fast Act] 1 - 2 cap PO DAILYP PRN 01/08/18 [History Confirmed 01/08/18 Last Taken 01/07/18 15:00] Multivitamin [One Daily Multivitamin] 1 tab PO DAILY 01/08/18 [History Confirmed 01/08/18 Last Taken 01/06/18 07:00] Medical - DS: Hosp Hospital course: Mr. Panchal is a 27 year old F History of present illness: Ms. Panchal is a 27 year old F with h/o IBS, on amitryptline for same, presents to the ER today at the recommendation of her PCP. 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 Her muscle aches, pains, fatigue did not go away, she has stifness in the mornings in the shoulders, neck and upper back, she has pain and weakness in both shoulders, she was finding it difficult to comb her own hair, and get dressed by self. Her symptoms got progressively worse throughout the month of November and she decided to seek help at the end of the month. Her primary care physician ordered some labs, noted that she had elevated LFTs, and also elevated CK values, she was admitted to the hospital with a diagnosis of rhabdomyolysis, her CK was around 20,000. She notes she also had a CT scan of the abdomen done the results of which she does not know. The patient was treated with fluids, CK values improved to 13,000, she felt a little bit better but the mild GI stiffness and weakness mostly present. After she was discharged from the hospital the symptoms continued and she continued to drink fluids, she did not go out in the heat. The patient had a repeat lab done which showed her CK had increased she was advised to drink fluids and recheck her CK. The patient came to live with the parents, it was noted that her repeat CK was again 18,000 and she was asked to come to the hospital for further management. The patient notes she has no difficulty in using her fingers are fine motor skills is intact the predominant problem she has is involving the shoulder region and upper back. She also has difficulty in getting up from the sitting position there is pain in both her thighs. She has noticed increase roughness in the fingertips, and some flaking of the skin around her nails. She has noticed rash on her thighs. The patient denies any fever chills headache changes in vision double vision no difficulty in swallowing the patient denies any cough no acute shortness of breath or chest pain no nausea no vomiting no acute abdominal pain no diarrhea constipation no arthralgia sites mentioned above. The patient had been camping once however notes that her symptoms predate the day of camping. The patient denies any use of zcbx-jly-jycciwm medications and herbal supplements for weight loss or any other purpose. The patient has been diagnosed with IBS and she takes amitriptyline for same, she also has been taking OC pills. These medications are not new. The patient takes lactase for lactic acid intolerance. The patient has a history of asthma uses albuterol as needed. The patient had a CK level of around 18,000, repeat CK checked showed CK around 16,000 she has elevated LFTs, patient is being admitted to the hospital for further evaluation and management case was reviewed with Dr. Ortega rheumatology by the ER. Course: 01/09 Pt seen examined, [place] [address]/s proximal muscle weakness present on ivf pt would like to be without the plunkett MRI reviewed, mary inflammation/ edema cxr interpreted as normal plan of care reviewed with pt and family good urine output noted, IV lasix x [address] reviewed from outside hospital, neg for liver pathology hiv, hepatitis a b and c is negative 01/10 Pt seen examined no change in status ck trending down, 11K now esr 30 muscle strenght stable, no dysphagia reported some headache 01/11 Pt seen examined no acute overnight events weakness stable, some improvement on left arm, right arm more painful plan for biopsy today, arm and thigh CK trending down, [id number] on ivf good urine output rheumatology to consult 01/12 no new complaints. biopsy yesterday. occasional hot flashes. 01/13 slept ok, no new complaints. feels weakness in UE's a little better. 01/14 feeling better today with more energy. More ambulatory. Better appetite last night. Redness to right arm noted early this morning. 01/15 complained of fluid retention last night, some better this morning with ALEJO's placed last night. Rash to right arm then later right leg both responsive to Diphenhydramine. Stronger able to use right arm to brush her teeth able to lift her right leg more. 01/16 slept well. feeling a little better each day, swelling in legs improving. had some flushing this morning after she woke up, relieved with Benadryl. Discharge diagnosis: Dermatomyositis rhabdomyolysis Secondary discharge diagnosis: Asthma, irritable bowel syndrome - Time Spent with Patient Total time spent providing and/or coordinating discharge services: Greater than 30 minutes Medical - DS: Exam - Constitutional Vitals: Vital Signs Temp Pulse Resp BP BP Pulse Ox 01/16/18 06:55 97.8 F 16 124/80 96 01/16/18 04:00 97.6 F 78 16 121/79 97 01/15/18 23:54 98.1 F 78 18 123/79 97 01/15/18 19:46 97.8 F 84 16 132/74 96 01/15/18 17:06 98.3 F 01/15/18 16:21 100.0 F H 01/15/18 16:00 100.0 F H 93 H 15 128/76 96 01/15/18 11:58 98.8 F 86 14 124/82 97 Intake and Output 01/15/18 01/16/18 01/16/18 21:59 05:59 13:59 Intake Total 700 / 700 150 / 150 240 / 240 Output Total 2200 / 2200 400 / 400 400 / 400 Balance -1500 / -1500 -250 / -250 -160 / -160 Intake: Oral 700 / 700 150 / 150 240 / 240 Output: Void Amount 2200 / 2200 400 / 400 400 / 400 Other: Meal Dinner Breakfast Percent of Meal Consumed 75% 75% Feeding Ability Independent Independent Urine Appearance Clear Clear Urine Color Bright Yellow Dark Yellow Urine Odor Normal Normal # Voids 1 # Bowel Movements 1 Weight 86.863 kg Medical - DS: Data Labs on day of discharge: Labs from last 24 hours 01/16/18 08:05 Sodium 138 Potassium 3.4 Chloride 103 Carbon Dioxide 24 Anion Gap 11.0 BUN 12 Creatinine 0.5 L GFR Calculation 135 Glucose 84 Calcium 9.2 Total Bilirubin 0.3 AST 279 H ALT 243 H Alkaline Phosphatase 49 Total Creatine Kinase 5372 H Total Protein 6.3 Albumin 3.6 Globulin 2.7 Albumin/Globulin Ratio 1.3 Medical - DS: A/P - Patient/Caregiver Discharge Instructions Activity: increase activity as tolerated Diet: Regular Diet Prescriptions: predniSONE [Prednisone] 60 mg PO [facility] #1 tab - Follow up Plan Follow up with: Alayna,PCP [Primary Care Provider] - Renee Everett MD [Physician] - Disposition: Home, Self-Care Prognosis: Good Rehab Potential: Good Medical - DS: Qual - VTE Deep Vein Thrombosis/Pulmonary Embolism Present on Admission: No
[2018-01-16] MEDS: diphenhydrAMINE 50 MG/ML VIAL IV PRN (13:30)
[2018-01-16] MEDS ORDERED: KETOROLAC TROMETHAMINE 10 MG TABLET PO ONE (16:04)
[2018-01-16] MEDS: AMITRIPTYLINE 10 MG TABLET PO SCH (20:31)
[2018-01-16] MEDS: oxyCODONE HCL 5 MG TABLET PO PRN (20:32)
[2018-01-17] MEDS: 0.9 % SODIUM CHLORIDE 10 ML SYRINGE IV SCH ×3 (06:20→20:55)
[2018-01-17 07:33] LABS: ALT/SGPT 204 U/l (0-40); Albumin 3.1 gm/dL (3.2-5.2); Albumin/Globulin Ratio 1.2 (1.0-2.3); Alkaline Phosphatase 44 U/L (39-117); Blood Urea Nitrogen 12 mg/dl (6-20); Creatine Kinase 4694 IU/L (24-170)
--- NOTE | 2018-01-17 07:44 | Internal Med Progress Note ---
Medical - PN: Subj Patient information: Note initiated : 01/17/18 at 7:40 am Service Date, if different from initiated Date: [] Patient: Shreya Panchal a 27 y/o F admitted on 01/08/18 for Rhabdo last week, labs drawn this am.. Chief Complaint: [] Interval history: Ms. Panchal is a 27 year old F with h/o IBS, on amitryptline for same, presents to the ER today at the recommendation of her PCP. 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 Her muscle aches, pains, fatigue did not go away, she has stifness in the mornings in the shoulders, neck and upper back, she has pain and weakness in both shoulders, she was finding it difficult to comb her own hair, and get dressed by self. Her symptoms got progressively worse throughout the month of November and she decided to seek help at the end of the month. Her primary care physician ordered some labs, noted that she had elevated LFTs, and also elevated CK values, she was admitted to the hospital with a diagnosis of rhabdomyolysis, her CK was around 20,000. She notes she also had a CT scan of the abdomen done the results of which she does not know. The patient was treated with fluids, CK values improved to 13,000, she felt a little bit better but the mild GI stiffness and weakness mostly present. After she was discharged from the hospital the symptoms continued and she continued to drink fluids, she did not go out in the heat. The patient had a repeat lab done which showed her CK had increased she was advised to drink fluids and recheck her CK. The patient came to live with the parents, it was noted that her repeat CK was again 18,000 and she was asked to come to the hospital for further management. The patient notes she has no difficulty in using her fingers are fine motor skills is intact the predominant problem she has is involving the shoulder region and upper back. She also has difficulty in getting up from the sitting position there is pain in both her thighs. She has noticed increase roughness in the fingertips, and some flaking of the skin around her nails. She has noticed rash on her thighs. The patient denies any fever chills headache changes in vision double vision no difficulty in swallowing the patient denies any cough no acute shortness of breath or chest pain no nausea no vomiting no acute abdominal pain no diarrhea constipation no arthralgia sites mentioned above. The patient had been camping once however notes that her symptoms predate the day of camping. The patient denies any use of wkqv-viu-habmahm medications and herbal supplements for weight loss or any other purpose. The patient has been diagnosed with IBS and she takes amitriptyline for same, she also has been taking OC pills. These medications are not new. The patient takes lactase for lactic acid intolerance. The patient has a history of asthma uses albuterol as needed. The patient had a CK level of around 18,000, repeat CK checked showed CK around 16,000 she has elevated LFTs, patient is being admitted to the hospital for further evaluation and management case was reviewed with Dr. Ortega rheumatology by the ER. 01/09 Pt seen examined, [place] [address]/s proximal muscle weakness present on ivf pt would like to be without the plunkett MRI reviewed, mary inflammation/ edema cxr interpreted as normal plan of care reviewed with pt and family good urine output noted, IV lasix x [address] reviewed from outside hospital, neg for liver pathology hiv, hepatitis a b and c is negative 01/10 Pt seen examined no change in status ck trending down, 11K now esr 30 muscle strenght stable, no dysphagia reported some headache 01/11 Pt seen examined no acute overnight events weakness stable, some improvement on left arm, right arm more painful plan for biopsy today, arm and thigh [place]ing [place], [id number] on ivf good urine output rheumatology to consult 01/12 no new complaints. biopsy yesterday. occasional hot flashes. 01/13 slept ok, no new complaints. feels weakness in UE's a little better. 01/14 feeling better today with more energy. More ambulatory. Better appetite last night. Redness to right arm noted early this morning. 01/15 complained of fluid retention last night, some better this morning with ALEJO's placed last night. Rash to right arm then later right leg both responsive to Diphenhydramine. Stronger able to use right arm to brush her teeth able to lift her right leg more. 01/16 slept well. feeling a little better each day, swelling in legs improving. had some flushing this morning after she woke up 01/17 no rash/flushing overnight or today. did receive toradol x1 yesterday. weakness same as yesterday, overall improved. Review of Systems: denies headache/fever/chills/nausea/vomiting/chest or abdominal pain/cough/ dyspnea/diarrhea. Otherwise see above. - Constitutional Vitals: Vital Signs Temp Pulse Resp BP Pulse Ox 97.7 F 80 16 116/75 98 01/17/18 07:32 01/17/18 04:00 01/17/18 07:32 01/17/18 07:32 01/17/18 07:32 Period Temp Pulse Resp BP Sys/An Pulse Ox Last 24 Hr 97.6 F-98.5 F 72-83 16-16 111-130/70-84 95-99 Intake and Output 01/16/18 01/17/18 01/17/18 21:59 05:59 13:59 Intake Total 240 / 240 200 / 200 Output Total 1550 / 1550 700 / 700 Balance -1310 / -1310 -500 / -500 Weight 87.77 kg Intake & Output: Intake & Output 01/16/18 01/17/18 01/17/18 21:59 05:59 13:59 Intake Total 240 / 240 200 / 200 Output Total 1550 / 1550 700 / 700 Balance -1310 / -1310 -500 / -500 Weight 87.77 kg Intake: Oral 240 / 240 200 / 200 Output: Void Amount 1550 / 1550 700 / 700 Other: Urine Appearance Clear Urine Color Bright Yellow Urine Odor Normal # Voids 1 Exam: General: Alert, Awake, No acute Distress HEENT: EOMI, Neck supple CV: RRR, No murmurs Pulm: Clear b/l, no wheezing/rhonchi/rales Abd: soft, nontender, +BS x4 Ext: no clubbing/cyanosis, trace b/l LE edema Neuro: Alert, moves all extremities, b/l UE weakness R>L subtle difference proximal muscles Skin: warm/dry Medical - PN: Obj Da - Labs CBC & Chem 7: 01/15/18 05:26 01/17/18 05:00 Labs: Abnormal Lab Results 01/17/18 01/16/18 01/15/18 05:00 08:05 05:26 WBC Hct Seg Neutrophils % Lymphocytes % Creatinine 0.5 L 0.5 L AST 250 H 279 H ALT 204 H 243 H Lactate Dehydrogenase Total Creatine Kinase 4694 H 5372 H 5040 H Total Protein 5.6 L Albumin 3.1 L Aldolase Cycl Citrul Peptide IgG 01/15/18 01/15/18 01/09/18 05:26 05:26 04:20 WBC 12.2 H Hct 35.9 L Seg Neutrophils % 79 H Lymphocytes % 12 L Creatinine 0.4 L AST 275 H ALT 211 H Lactate Dehydrogenase 624 H Total Creatine Kinase Total Protein 5.7 L Albumin Aldolase Cycl Citrul Peptide IgG 28 H 01/09/18 04:20 WBC Hct Seg Neutrophils % Lymphocytes % Creatinine AST ALT Lactate Dehydrogenase Total Creatine Kinase Total Protein Albumin Aldolase 107.4 H Cycl Citrul Peptide IgG Meds: Medications Acetaminophen (Tylenol) 650 mg PO Q6HP PRN PRN Reason: PAIN/FEVER > 101 Last Admin: 01/16/18 15:34 Dose: 650 mg Albuterol Sulfate (Ventolin) 1 puff INH Q4HP PRN PRN Reason: Shortness Of Breath Amitriptyline HCl (Elavil) 10 mg PO HS [facility] Last Admin: 01/16/18 20:31 Dose: 10 mg Diphenhydramine HCl (Benadryl) 25 mg PO Q6HP PRN PRN Reason: Allergic Symptoms Last Admin: 01/16/18 07:11 Dose: 25 mg Diphenhydramine HCl (Benadryl) 25 mg IV Q6HP PRN PRN Reason: Allergic Symptoms Last Admin: 01/16/18 13:30 Dose: 25 mg Docusate Sodium (Colace) 100 mg PO BID [facility] Last Admin: 01/16/18 20:31 Dose: 100 mg Fluticasone Propionate (Flonase) 1 spray NS DAILY [facility] Last Admin: 01/16/18 08:44 Dose: 1 spray Heparin Sodium (Porcine) (Heparin) 5,000 unit SQ Q12 [facility] Last Admin: 01/16/18 20:32 Dose: 5,000 unit Iron Carb/Multivit/[place]/Folic Acid (Multivitamin W/Minerals) 1 tab PO DAILY [facility] Last Admin: 01/16/18 08:43 Dose: 1 tab Lactobacillus Rhamnosus (Culturelle) 1 cap PO MoWeFr@0900 [facility] Last Admin: 01/15/18 09:16 Dose: 1 cap Magnesium Hydroxide (Milk Of Magnesia) 30 ml PO DAILYP PRN PRN Reason: Constipation Ondansetron HCl (Zofran) 4 mg IV Q6HP PRN PRN Reason: Nausea And Vomiting Last Admin: 01/13/18 13:38 Dose: 4 mg Oxycodone HCl (Roxicodone) 2.5 - 5 mg PO Q6HP PRN PRN Reason: Pain Last Admin: 01/16/18 20:32 Dose: 2.5 mg Pantoprazole [facility] ([facility]ix) [facility] Last Admin: 01/16/18 07:11 Dose: 40 mg Lactase 9000 Unit (Capsule) 2 dose PO DAILYP PRN PRN Reason: Lactose Intolerance Ocella 3 Mg-0.03 Mg (Tab) 1 dose PO DAILY [facility] Last Admin: 01/16/18 08:43 Dose: 1 dose Prednisone (Prednisone) [address] [facility] Last Admin: 01/16/18 08:43 Dose: 60 mg Promethazine HCl (Phenergan) 12.5 mg IV Q4HP PRN PRN Reason: Nausea And Vomiting Last Admin: 01/11/18 17:56 Dose: 12.5 mg Sodium Chloride (Saline Flush) 10 ml IV Q8 [facility] Last Admin: 01/17/18 06:20 Dose: 10 ml Medical - PN: A/P - Time Spent With Patient Total time spent is greater than 50% in coordination of care (as documented) at patient's floor/unit and/or counseling patient: - Narrative A/P Narrative: A: *Rhabdomyolysis/Myositis/dermatomyositis: -muscle biopsy pending -barium swallow normal -CK 5k<16k, AST/ALT improving *Homogenous Erythematous smooth rash arms and chest / Flushing: waxes/wanes and responds to diphenhydramine, nontender. -suspect from IV solumedrol vs -no diarrhea -none last night or today, received Toradol 1 yesterday. *Asthma: *IBS: on amitriptyline. P: -pending muscle biopsy (will be several weeks) - -trend CK -Rheum following; steroids per rheumatology, eventual EMG (unable to do inpt, f/ u outpt) -solumedrol 3 day course finished, started prednisone 60mg daily; if reaction continues with prednisone will d/w Rheum, prn benadryl -SAGRARIO + specked pattern, other Rheum labs pending - -ppx: heparin Medical - PN: Qual - VTE Deep Vein Thrombosis/Pulmonary Embolism Present on Admission: No
[2018-01-17] MEDS: MULTIVIT,THER IRON,CA,FA & MIN 1 TABLET PO SCH (07:52)
[2018-01-17] MEDS: HEPARIN 5,000 UNIT/ML VIAL SQ SCH ×2 (07:52→20:55)
[2018-01-17] MEDS: DOCUSATE SODIUM 100 MG CAPSULE PO SCH ×2 (07:54→20:54)
[2018-01-17] MEDS: PANTOPRAZOLE 40 MG TABLET PO SCH (07:54)
[2018-01-17] MEDS: ACETAMINOPHEN 325 MG TABLET PO PRN (07:54)
[2018-01-17] MEDS: predniSONE 20 MG TABLET PO SCH (07:55)
[2018-01-17] MEDS: OCELLA PO SCH (07:56)
[2018-01-17] MEDS: FLUTICASONE PROPIONATE SPRAY.NAS NS SCH (07:56)
[2018-01-17] MEDS ORDERED: POLYETHYLENE GLYCOL 3350 17 GM PACKET PO PRN (18:38)
[2018-01-17] MEDS: AMITRIPTYLINE 10 MG TABLET PO SCH (20:54)
[2018-01-18] MEDS: KETOROLAC TROMETHAMINE 10 MG TABLET PO PRN (05:58)
[2018-01-18] MEDS: 0.9 % SODIUM CHLORIDE 10 ML SYRINGE IV SCH ×3 (06:00→20:23)
[2018-01-18] MEDS: PANTOPRAZOLE 40 MG TABLET PO SCH (07:06)
--- NOTE | 2018-01-18 07:06 | Internal Med Progress Note ---
Medical - PN: Subj Patient information: Note initiated : 01/18/18 at 7:03 am Service Date, if different from initiated Date: [] Patient: Shreya Panchal a 27 y/o F admitted on 01/08/18 for Rhabdo last week, labs drawn this am.. Chief Complaint: [] Interval history: Ms. Panchal is a 27 year old F with h/o IBS, on amitryptline for same, presents to the ER today at the recommendation of her PCP. 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 Her muscle aches, pains, fatigue did not go away, she has stifness in the mornings in the shoulders, neck and upper back, she has pain and weakness in both shoulders, she was finding it difficult to comb her own hair, and get dressed by self. Her symptoms got progressively worse throughout the month of November and she decided to seek help at the end of the month. Her primary care physician ordered some labs, noted that she had elevated LFTs, and also elevated CK values, she was admitted to the hospital with a diagnosis of rhabdomyolysis, her CK was around 20,000. She notes she also had a CT scan of the abdomen done the results of which she does not know. The patient was treated with fluids, CK values improved to 13,000, she felt a little bit better but the mild GI stiffness and weakness mostly present. After she was discharged from the hospital the symptoms continued and she continued to drink fluids, she did not go out in the heat. The patient had a repeat lab done which showed her CK had increased she was advised to drink fluids and recheck her CK. The patient came to live with the parents, it was noted that her repeat CK was again 18,000 and she was asked to come to the hospital for further management. The patient notes she has no difficulty in using her fingers are fine motor skills is intact the predominant problem she has is involving the shoulder region and upper back. She also has difficulty in getting up from the sitting position there is pain in both her thighs. She has noticed increase roughness in the fingertips, and some flaking of the skin around her nails. She has noticed rash on her thighs. The patient denies any fever chills headache changes in vision double vision no difficulty in swallowing the patient denies any cough no acute shortness of breath or chest pain no nausea no vomiting no acute abdominal pain no diarrhea constipation no arthralgia sites mentioned above. The patient had been camping once however notes that her symptoms predate the day of camping. The patient denies any use of [id number] medications and herbal supplements for weight loss or any other purpose. The patient has been diagnosed with IBS and she takes amitriptyline for same, she also has been taking OC pills. These medications are not new. The patient takes lactase for lactic acid intolerance. The patient has a history of asthma uses albuterol as needed. The patient had a CK level of around 18,000, repeat CK checked showed CK around 16,000 she has elevated LFTs, patient is being admitted to the hospital for further evaluation and management case was reviewed with Dr. Ortega rheumatology by the ER. 01/09 Pt seen examined, [place] [address]/s proximal muscle weakness present on ivf pt would like to be without the plunkett MRI reviewed, mary inflammation/ edema cxr interpreted as normal plan of care reviewed with pt and family good urine output noted, IV lasix x [address] reviewed from outside hospital, neg for liver pathology hiv, hepatitis a b and c is negative 01/10 Pt seen examined no change in status ck trending down, 11K now esr 30 muscle strenght stable, no dysphagia reported some headache 01/11 Pt seen examined no acute overnight events weakness stable, some improvement on left arm, right arm more painful plan for biopsy today, arm and thigh CK [place]ing down, [address] on ivf good urine output rheumatology to consult 01/12 no new complaints. biopsy yesterday. occasional hot flashes. 01/13 slept ok, no new complaints. feels weakness in UE's a little better. 01/14 feeling better today with more energy. More ambulatory. Better appetite last night. Redness to right arm noted early this morning. 01/15 complained of fluid retention last night, some better this morning with ALEJO's placed last night. Rash to right arm then later right leg both responsive to Diphenhydramine. Stronger able to use right arm to brush her teeth able to lift her right leg more. 01/16 slept well. feeling a little better each day, swelling in legs improving. had some flushing this morning after she woke up 01/17 no rash/flushing overnight or today. did receive toradol x1 yesterday. weakness same as yesterday, overall improved. 01/18 had upset stomach this morning, some flushing last night. feels better after breakfast. weakness slowly improving. Review of Systems: denies headache/fever/chills/nausea/vomiting/chest or abdominal pain/cough/ dyspnea/diarrhea. Otherwise see above. - Constitutional Vitals: Vital Signs Temp Pulse Resp BP Pulse Ox 98.1 F 80 16 124/80 97 01/18/18 04:00 01/18/18 04:00 01/18/18 04:00 01/18/18 04:00 01/18/18 04:00 Period Temp Pulse Resp BP Sys/An Pulse Ox Last 24 Hr 97.2 F-98.1 F 80-94 -18 116-138/70-85 96-98 Intake and Output 01/17/18 01/18/18 01/18/18 21:59 05:59 13:59 Intake Total 1400 / 1400 150 / 150 Output Total 750 / 750 400 / 400 Balance 650 / 650 150 / 150 -400 / -400 Weight 85.049 kg Intake & Output: Intake & Output 01/17/18 01/18/18 01/18/18 21:59 05:59 13:59 Intake Total 1400 / 1400 150 / 150 Output Total 750 / 750 400 / 400 Balance 650 / 650 150 / 150 -400 / -400 Weight 85.049 kg Intake: Oral 1400 / 1400 150 / 150 Output: Void Amount 750 / 750 400 / 400 Other: Meal Dinner Percent of Meal Consumed 90% Feeding Ability Independent Exam: General: Alert, Awake, No acute Distress HEENT: EOMI, Neck supple CV: RRR, No murmurs Pulm: Clear b/l, no wheezing/rhonchi/rales Abd: soft, nontender, +BS x4 Ext: no clubbing/cyanosis, trace b/l LE edema Neuro: Alert, moves all extremities, b/l UE weakness 4/5 Skin: warm/dry Medical - PN: Obj Da - Labs CBC & Chem 7: 01/15/18 05:26 01/17/18 05:00 Labs: Abnormal Lab Results 01/17/18 01/16/18 01/15/18 05:00 08:05 05:26 Seg Neutrophils % Lymphocytes % Creatinine 0.5 L 0.5 L AST 250 H 279 H ALT 204 H 243 H Lactate Dehydrogenase Total Creatine Kinase 4694 H 5372 H 5040 H Total Protein 5.6 L Albumin 3.1 L 01/15/18 01/15/18 05:26 05:26 Seg Neutrophils % 79 H Lymphocytes % 12 L Creatinine 0.4 L AST 275 H ALT 211 H Lactate Dehydrogenase 624 H Total Creatine Kinase Total Protein 5.7 L Albumin Meds: Medications Acetaminophen (Tylenol) 650 mg PO Q6HP PRN PRN Reason: PAIN/FEVER > 101 Last Admin: 01/17/18 07:54 Dose: 650 mg Albuterol Sulfate (Ventolin) 1 puff INH Q4HP PRN PRN Reason: Shortness Of Breath Amitriptyline HCl (Elavil) 10 mg PO HS [facility] Last Admin: 01/17/18 20:54 Dose: 10 mg Diphenhydramine HCl (Benadryl) 25 mg PO Q6HP PRN PRN Reason: Allergic Symptoms Last Admin: 01/16/18 07:11 Dose: 25 mg Diphenhydramine HCl (Benadryl) 25 mg IV Q6HP PRN PRN Reason: Allergic Symptoms Last Admin: 01/16/18 13:30 Dose: 25 mg Docusate Sodium (Colace) 100 mg PO BID [facility] Last Admin: 01/17/18 20:54 Dose: 100 mg Fluticasone Propionate (Flonase) 1 spray NS DAILY [facility] Last Admin: 01/17/18 07:56 Dose: 1 spray Heparin Sodium (Porcine) (Heparin) 5,000 unit SQ Q12 [facility] Last Admin: 01/17/18 20:55 Dose: 5,000 unit Iron Carb/Multivit/Racing Secretary/Folic Acid (Multivitamin W/Minerals) 1 tab PO DAILY [facility] Last Admin: 01/17/18 07:52 Dose: 1 tab Ketorolac Tromethamine (Toradol) 10 mg PO Q8HP PRN PRN Reason: Pain Last Admin: 01/18/18 05:58 Dose: 10 mg Lactobacillus Rhamnosus (Culturelle) 1 cap PO [id number] [facility] Last Admin: 01/15/18 09:16 Dose: 1 cap Magnesium Hydroxide (Milk Of Magnesia) 30 ml PO DAILYP PRN PRN Reason: Constipation Ondansetron HCl (Zofran) 4 mg IV Q6HP PRN PRN Reason: Nausea And Vomiting Last Admin: 01/13/18 13:38 Dose: 4 mg Oxycodone HCl (Roxicodone) 2.5 - 5 mg PO Q6HP PRN PRN Reason: Pain Last Admin: 01/16/18 20:32 Dose: 2.5 mg Pantoprazole Sodium (Protonix) 40 mg PO [facility] Last Admin: 01/17/18 07:54 Dose: 40 mg Lactase 9000 Unit (Capsule) 2 dose PO DAILYP PRN PRN Reason: Lactose Intolerance Ocella 3 Mg-0.03 Mg (Tab) 1 dose PO DAILY [facility] Last Admin: 01/17/18 07:56 Dose: 1 dose Polyethylene Glycol (Miralax) 17 gm PO DAILYP PRN PRN Reason: Constipation Prednisone (Prednisone) 60 mg PO [facility] Last Admin: 01/17/18 07:55 Dose: 60 mg Promethazine HCl (Phenergan) 12.5 mg IV Q4HP PRN PRN Reason: Nausea And Vomiting Last Admin: 01/11/18 17:56 Dose: 12.5 mg Sodium Chloride (Saline Flush) 10 ml IV Q8 [facility] Last Admin: 01/18/18 06:00 Dose: 10 ml Medical - PN: A/P - Time Spent With Patient Total time spent is greater than 50% in coordination of care (as documented) at patient's floor/unit and/or counseling patient: - Narrative A/P Narrative: A: *Rhabdomyolysis/Myositis/dermatomyositis: -muscle biopsy pending -barium swallow normal -CK 5k<4.65<5k<16k, AST/ALT improving *Homogenous Erythematous smooth rash arms and chest / Flushing: waxes/wanes and responds to diphenhydramine, nontender. -suspect from IV solumedrol vs -no diarrhea -none yesterday, responded to toradol x1 *Asthma: *IBS: on amitriptyline. P: -pending muscle biopsy (will be several weeks) -trend CK -Rheum following; steroids per rheumatology, eventual EMG (unable to do inpt, f/ u outpt) -solumedrol 3 day course finished, cont prednisone 60mg daily; if reaction continues with prednisone will d/w Rheum, prn benadryl -SAGRARIO + specked pattern, other Rheum labs pending -PT/OT -ppx: heparin Medical - PN: Qual - VTE Deep Vein Thrombosis/Pulmonary Embolism Present on Admission: No
[2018-01-18 07:59] LABS: Creatine Kinase 4997 IU/L (24-170)
[2018-01-18] MEDS: HEPARIN 5,000 UNIT/ML VIAL SQ SCH ×2 (08:58→20:23)
[2018-01-18] MEDS: FLUTICASONE PROPIONATE SPRAY.NAS NS SCH (08:58)
[2018-01-18] MEDS: predniSONE 20 MG TABLET PO SCH (08:58)
[2018-01-18] MEDS: MULTIVIT,THER IRON,CA,FA & MIN 1 TABLET PO SCH (08:58)
[2018-01-18] MEDS: OCELLA PO SCH (08:58)
[2018-01-18] MEDS: LACTOBACILLUS 1 CAPSULE PO SCH (08:58)
[2018-01-18] MEDS: DOCUSATE SODIUM 100 MG CAPSULE PO SCH ×2 (08:58→20:23)
[2018-01-18] MEDS: ACETAMINOPHEN 325 MG TABLET PO PRN (16:55)
[2018-01-18] MEDS: AMITRIPTYLINE 10 MG TABLET PO SCH (20:23)
[2018-01-19] MEDS: 0.9 % SODIUM CHLORIDE 10 ML SYRINGE IV SCH ×3 (04:25→20:38)
[2018-01-19 06:02] LABS: ALT/SGPT 222 U/l (0-40); Albumin 3.3 gm/dL (3.2-5.2); Albumin/Globulin Ratio 1.4 (1.0-2.3); Alkaline Phosphatase 47 U/L (39-117); Blood Urea Nitrogen 10 mg/dl (6-20); Creatine Kinase 6049 IU/L (24-170)
[2018-01-19] MEDS: PANTOPRAZOLE 40 MG TABLET PO SCH (06:48)
[2018-01-19 09:12] LABS: C-Reactive Protein 0.6 mg/dl (0.0-0.8)
[2018-01-19] MEDS: FLUTICASONE PROPIONATE SPRAY.NAS NS SCH (09:51)
[2018-01-19] MEDS: OCELLA PO SCH (09:51)
[2018-01-19] MEDS: HEPARIN 5,000 UNIT/ML VIAL SQ SCH ×2 (09:51→20:37)
[2018-01-19] MEDS: MULTIVIT,THER IRON,CA,FA & MIN 1 TABLET PO SCH (09:51)
[2018-01-19] MEDS: predniSONE 20 MG TABLET PO SCH (09:51)
[2018-01-19] MEDS: DOCUSATE SODIUM 100 MG CAPSULE PO SCH ×3 (09:51→20:38)
--- NOTE | 2018-01-19 11:36 | Internal Med Progress Note ---
Medical - PN: Subj Patient information: Note initiated : 01/19/18 at 11:34 am Service Date, if different from initiated Date: [] Patient: Shreya Panchal a 27 y/o F admitted on 01/08/18 for Rhabdo last week, labs drawn this am.. Chief Complaint: [] Interval history: Ms. Panchal is a 27 year old F with h/o IBS, on amitryptline for same, presents to the ER today at the recommendation of her PCP. 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 Her muscle aches, pains, fatigue did not go away, she has stifness in the mornings in the shoulders, neck and upper back, she has pain and weakness in both shoulders, she was finding it difficult to comb her own hair, and get dressed by self. Her symptoms got progressively worse throughout the month of November and she decided to seek help at the end of the month. Her primary care physician ordered some labs, noted that she had elevated LFTs, and also elevated CK values, she was admitted to the hospital with a diagnosis of rhabdomyolysis, her CK was around 20,000. She notes she also had a CT scan of the abdomen done the results of which she does not know. The patient was treated with fluids, CK values improved to 13,000, she felt a little bit better but the mild GI stiffness and weakness mostly present. After she was discharged from the hospital the symptoms continued and she continued to drink fluids, she did not go out in the heat. The patient had a repeat lab done which showed her CK had increased she was advised to drink fluids and recheck her CK. The patient came to live with the parents, it was noted that her repeat CK was again 18,000 and she was asked to come to the hospital for further management. The patient notes she has no difficulty in using her fingers are fine motor skills is intact the predominant problem she has is involving the shoulder region and upper back. She also has difficulty in getting up from the sitting position there is pain in both her thighs. She has noticed increase roughness in the fingertips, and some flaking of the skin around her nails. She has noticed rash on her thighs. The patient denies any fever chills headache changes in vision double vision no difficulty in swallowing the patient denies any cough no acute shortness of breath or chest pain no nausea no vomiting no acute abdominal pain no diarrhea constipation no arthralgia sites mentioned above. The patient had been camping once however notes that her symptoms predate the day of camping. The patient denies any use of [id number] medications and herbal supplements for weight loss or any other purpose. The patient has been diagnosed with IBS and she takes amitriptyline for same, she also has been taking OC pills. These medications are not new. The patient takes lactase for lactic acid intolerance. The patient has a history of asthma uses albuterol as needed. The patient had a CK level of around 18,000, repeat CK checked showed CK around 16,000 she has elevated LFTs, patient is being admitted to the hospital for further evaluation and management case was reviewed with Dr. Ortega rheumatology by the ER. 01/09 Pt seen examined, [place] [address]/s proximal muscle weakness present on ivf pt would like to be without the plunkett MRI reviewed, mary inflammation/ edema cxr interpreted as normal plan of care reviewed with pt and family good urine output noted, IV lasix x [address] reviewed from outside hospital, neg for liver pathology hiv, hepatitis a b and c is negative 01/10 Pt seen examined no change in status ck trending down, 11K now esr 30 muscle strenght stable, no dysphagia reported some headache 01/11 Pt seen examined no acute overnight events weakness stable, some improvement on left arm, right arm more painful plan for biopsy today, arm and thigh CK trending down, [address] on ivf good urine output rheumatology to consult 01/19 Pt seen examined no acute overnight events off IV FLuids CK 6K was nearly 5K yesterday enoucrage oral intake await rheumatology clearnce renal functino stable pt is able to do more, has more strenght now Pertinent ROS: Denies headache, dizziness Denies chest pain, palpitations Denies cough or shortness of breath, some chest tightness in AM Denies abdominal pain, nausea or vomiting. - Constitutional Vitals: Vital Signs Temp Pulse Resp BP Pulse Ox 97.6 F 84 16 111/74 97 01/19/18 07:01 01/19/18 03:01 01/19/18 07:01 01/19/18 07:01 01/19/18 07:01 Period Temp Pulse Resp BP Sys/An Pulse Ox Last 24 Hr 96.8 F-98.5 F 84-86 16-24 111-129/64-82 95-97 Intake and Output 01/18/18 01/19/18 01/19/18 21:59 05:59 13:59 Intake Total 2300 / 2300 150 / 150 240 / 240 Output Total 2700 / 2700 500 / 500 Balance -400 / -400 -350 / -350 240 / 240 Weight 185 lb Intake & Output: Intake & Output 01/18/18 01/19/18 01/19/18 21:59 05:59 13:59 Intake Total 2300 / 2300 150 / 150 240 / 240 Output Total 2700 / 2700 500 / 500 Balance -400 / -400 -350 / -350 240 / 240 Weight 185 lb Intake: Oral 2300 / 2300 150 / 150 240 / 240 Output: Void Amount 2700 / 2700 500 / 500 Other: Meal Dinner Reynold crackers (1 pack) Breakfast Percent of Meal Consumed 50% 75% Feeding Ability Independent Urine Appearance Clear Clear Urine Color Pale Dark Yellow Urine Odor Normal Normal Stool Size Moderate Stool Color Brown Stool Consistency Soft Loose # Voids 2 Exam: Constitutional; Afebrile, cooperative, alert, not in distress. Eyes- No icterus, , No periorbital swelling Ears- Ext ear normal, hearing normal to conversation. Neck- Midline trachea, supple Respiratory system: Air Entry equal on both sides, No crackles or wheezing, no rhonchi. CVS- Rate rhythm regular, S1,S2 heard, no gallop, no rub. Abdomen- Soft nontender abdomen, no organomegaly, no tenderness, no guarding or rigidity, [employer]- AOOx3, moving all extremities, no gross focal deficit noted. Medical - PN: Obj Da - Labs CBC & Chem 7: 01/15/18 05:26 01/19/18 04:20 Labs: Abnormal Lab Results 01/19/18 01/18/18 01/17/18 04:20 05:09 05:00 Creatinine 0.5 L 0.5 L AST 316 H 250 H ALT 222 H 204 H Total Creatine Kinase 6049 H 4997 H 4694 H Total Protein 5.7 L 5.6 L Albumin 3.1 L Meds: Medications Acetaminophen (Tylenol) 650 mg PO Q6HP PRN PRN Reason: PAIN/FEVER > 101 Last Admin: 01/18/18 16:55 Dose: 650 mg Albuterol Sulfate (Ventolin) 1 puff INH Q4HP PRN PRN Reason: Shortness Of Breath Amitriptyline HCl (Elavil) 10 mg PO HS [facility] Last Admin: 01/18/18 20:23 Dose: 10 mg Diphenhydramine HCl (Benadryl) 25 mg PO Q6HP PRN PRN Reason: Allergic Symptoms Last Admin: 01/16/18 07:11 Dose: 25 mg Diphenhydramine HCl (Benadryl) 25 mg IV Q6HP PRN PRN Reason: Allergic Symptoms Last Admin: 01/16/18 13:30 Dose: 25 mg Docusate Sodium (Colace) 100 mg PO BID [facility] Last Admin: 01/19/18 09:54 Dose: Not Given Fluticasone Propionate (Flonase) 1 spray NS DAILY [facility] Last Admin: 01/19/18 09:51 Dose: 1 spray Heparin Sodium (Porcine) (Heparin) 5,000 unit SQ Q12 [facility] Last Admin: 01/19/18 09:51 Dose: 5,000 unit Iron Carb/Multivit/Wake/Folic Acid (Multivitamin W/Minerals) 1 tab PO DAILY [facility] Last Admin: 01/19/18 09:51 Dose: 1 tab Ketorolac Tromethamine (Toradol) 10 mg PO Q8HP PRN PRN Reason: Pain Last Admin: 01/18/18 05:58 Dose: 10 mg Lactobacillus Rhamnosus (Culturelle) 1 cap PO MoWeFr@0900 [facility] Last Admin: 01/18/18 08:58 Dose: 1 cap Magnesium Hydroxide (Milk Of Magnesia) 30 ml PO DAILYP PRN PRN Reason: Constipation Ondansetron HCl (Zofran) 4 mg IV Q6HP PRN PRN Reason: Nausea And Vomiting Last Admin: 01/13/18 13:38 Dose: 4 mg Oxycodone HCl (Roxicodone) 2.5 - 5 mg PO Q6HP PRN PRN Reason: Pain Last Admin: 01/16/18 20:32 Dose: 2.5 mg [facility] Last Admin: 01/19/18 06:48 Dose: 40 mg Lactase 9000 Unit (Capsule) 2 dose PO DAILYP PRN PRN Reason: Lactose Intolerance Ocella 3 Mg-0.03 Mg (Tab) 1 dose PO DAILY [facility] Last Admin: 01/19/18 09:51 Dose: 1 dose Polyethylene Glycol (Miralax) 17 gm PO DAILYP PRN PRN Reason: Constipation Last Admin: 01/18/18 08:58 Dose: 17 gm Prednisone (Prednisone) 60 mg PO [facility] Last Admin: 01/19/18 09:51 Dose: 60 mg Promethazine HCl (Phenergan) 12.5 mg IV Q4HP PRN PRN Reason: Nausea And Vomiting Last Admin: 01/11/18 17:56 Dose: 12.5 mg Sodium Chloride (Saline Flush) 10 ml IV Q8 [facility] Last Admin: 01/19/18 04:25 Dose: 10 ml Medical - PN: A/P - Time Spent With Patient Total time spent is greater than 50% in coordination of care (as documented) at patient's floor/unit and/or counseling patient: - Narrative A/P Narrative: A/P Rhabdomyolysis/ 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 Await rheumatology clearance for discharge, what level of CK safe for D/c ? encourage adequate oral hydration for now. esophageal swallow normal w asthma- prn albuterol no wheezing. IBS on amitriptyline. dvt hep sq Regular diet Medical - PN: Qual - VTE Deep Vein Thrombosis/Pulmonary Embolism Present on Admission: No
[2018-01-19] MEDS: KETOROLAC TROMETHAMINE 10 MG TABLET PO PRN (13:50)
[2018-01-19] MEDS: AMITRIPTYLINE 10 MG TABLET PO SCH (20:38)
[2018-01-20] MEDS: 0.9 % SODIUM CHLORIDE 10 ML SYRINGE IV SCH ×2 (06:25→16:31)
[2018-01-20] MEDS: PANTOPRAZOLE 40 MG TABLET PO SCH (06:40)
[2018-01-20 06:55] LABS: Blood Urea Nitrogen 11 mg/dl (6-20)
[2018-01-20 07:12] LABS: Creatine Kinase 5811 IU/L (24-170)
[2018-01-20] MEDS ORDERED: predniSONE 20 MG TABLET PO SCH (08:00)
[2018-01-20] MEDS: DOCUSATE SODIUM 100 MG CAPSULE PO SCH (08:12)
[2018-01-20] MEDS: FLUTICASONE PROPIONATE SPRAY.NAS NS SCH (08:25)
[2018-01-20] MEDS: OCELLA PO SCH (08:25)
[2018-01-20] MEDS: MULTIVIT,THER IRON,CA,FA & MIN 1 TABLET PO SCH (08:26)
[2018-01-20] MEDS: HEPARIN 5,000 UNIT/ML VIAL SQ SCH (08:26)
[2018-01-20] MEDS: LACTOBACILLUS 1 CAPSULE PO SCH (08:26)
--- NOTE | 2018-01-20 13:41 | Internal Med Progress Note ---
Medical - PN: Subj Patient information: Note initiated : 01/20/18 at 1:39 pm Service Date, if different from initiated Date: [] Patient: Shreya Panchal a 27 y/o F admitted on 01/08/18 for Rhabdo last week, labs drawn this am.. Chief Complaint: [] Interval history: Ms. Panchal is a 27 year old F with h/o IBS, on amitryptline for same, presents to the ER today at the recommendation of her PCP. 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 Her muscle aches, pains, fatigue did not go away, she has stifness in the mornings in the shoulders, neck and upper back, she has pain and weakness in both shoulders, she was finding it difficult to comb her own hair, and get dressed by self. Her symptoms got progressively worse throughout the month of November and she decided to seek help at the end of the month. Her primary care physician ordered some labs, noted that she had elevated LFTs, and also elevated CK values, she was admitted to the hospital with a diagnosis of rhabdomyolysis, her CK was around 20,000. She notes she also had a CT scan of the abdomen done the results of which she does not know. The patient was treated with fluids, CK values improved to 13,000, she felt a little bit better but the mild GI stiffness and weakness mostly present. After she was discharged from the hospital the symptoms continued and she continued to drink fluids, she did not go out in the heat. The patient had a repeat lab done which showed her CK had increased she was advised to drink fluids and recheck her CK. The patient came to live with the parents, it was noted that her repeat CK was again 18,000 and she was asked to come to the hospital for further management. The patient notes she has no difficulty in using her fingers are fine motor skills is intact the predominant problem she has is involving the shoulder region and upper back. She also has difficulty in getting up from the sitting position there is pain in both her thighs. She has noticed increase roughness in the fingertips, and some flaking of the skin around her nails. She has noticed rash on her thighs. The patient denies any fever chills headache changes in vision double vision no difficulty in swallowing the patient denies any cough no acute shortness of breath or chest pain no nausea no vomiting no acute abdominal pain no diarrhea constipation no arthralgia sites mentioned above. The patient had been camping once however notes that her symptoms predate the day of camping. The patient denies any use of [id number] medications and herbal supplements for weight loss or any other purpose. The patient has been diagnosed with IBS and she takes amitriptyline for same, she also has been taking OC pills. These medications are not new. The patient takes lactase for lactic acid intolerance. The patient has a history of asthma uses albuterol as needed. The patient had a CK level of around 18,000, repeat CK checked showed CK around 16,000 she has elevated LFTs, patient is being admitted to the hospital for further evaluation and management case was reviewed with Dr. Ortega rheumatology by the ER. 01/09 Pt seen examined, [place] [address]/s proximal muscle weakness present on ivf pt would like to be without the plunkett MRI reviewed, mary inflammation/ edema cxr interpreted as normal plan of care reviewed with pt and family good urine output noted, IV lasix x [address] reviewed from outside hospital, neg for liver pathology hiv, hepatitis a b and c is negative 01/10 Pt seen examined no change in status ck trending down, 11K now esr 30 muscle strenght stable, no dysphagia reported some headache 01/11 Pt seen examined no acute overnight events weakness stable, some improvement on left arm, right arm more painful plan for biopsy today, arm and [place], [id number] on ivf good urine output rheumatology to consult 01/19 Pt seen examined no acute overnight events off IV FLuids CK 6K was nearly 5K yesterday enoucrage oral intake await rheumatology clearnce renal functino stable pt is able to do more, has more strenght now 01/20 Pt seen examined, no acute overnight issues pt able to do most ADL slowly today , OT notes she needs some assistance, but otherwise can go home Dose of prenidsone increased to 100mg as per Rheumatology recommendations CK level still high 5800 On oral fluids will review with Rheumatology regarding safe discahrge plan Pertinent ROS: Denies headache, dizziness Denies chest pain, palpitations Denies cough or shortness of breath Denies abdominal pain, nausea or vomiting. - Constitutional Vitals: Vital Signs Temp Pulse Resp BP Pulse Ox 97.6 F 88 18 121/78 97 01/20/18 11:06 01/20/18 11:06 01/20/18 11:06 01/20/18 11:06 01/20/18 11:06 Period Temp Pulse Resp BP Sys/An Pulse Ox Last 24 Hr 97.4 F-98.0 F 86-101 16-24 119-128/68-82 96-98 Intake and Output 01/19/18 01/20/18 01/20/18 21:59 05:59 13:59 Intake Total 1580 / 1580 725 / 725 1280 / 1280 Output Total 1350 / 1350 600 / 600 Balance 230 / 230 125 / 125 1280 / 1280 Weight 182 lb 8 oz Intake & Output: Intake & Output 01/19/18 01/20/18 01/20/18 21:59 05:59 13:59 Intake Total 1580 / 1580 725 / 725 1280 / 1280 Output Total 1350 / 1350 600 / 600 Balance 230 / 230 125 / 125 1280 / 1280 Weight 182 lb 8 oz Intake: Oral 1580 / 1580 725 / 725 1280 / 1280 Output: Void Amount 1350 / 1350 600 / 600 Other: Meal Dinner Breakfast Percent of Meal Consumed 50% 100% Feeding Ability Independent Urine Appearance Clear Clear Urine Color Pale Dark Yellow Urine Odor Normal Normal # Voids 6 Exam: Constitutional; Afebrile, cooperative, alert, not in distress. Respiratory system: Air Entry equal on both sides, No crackles or wheezing, no rhonchi. CVS- Rate rhythm regular, S1,S2 heard, no gallop, no rub. Abdomen- Soft nontender abdomen, no organomegaly, no tenderness, no guarding or rigidity, [employer]ING [employer]- AOOx3, moving all extremities, no gross focal deficit noted. proxmial muscle weakness improving, 3-4 /5 in both upper and lower proximal muscles. Medical - PN: Obj Da - Labs CBC & Chem 7: 01/15/18 05:26 01/20/18 04:15 Labs: Abnormal Lab Results 01/20/18 01/19/18 01/18/18 04:15 04:20 05:09 Creatinine 0.4 L 0.5 L AST 316 H ALT 222 H Total Creatine Kinase 5811 H 6049 H 4997 H Total Protein 5.7 L Meds: Medications Acetaminophen (Tylenol) 650 mg PO Q6HP PRN PRN Reason: PAIN/FEVER > 101 Last Admin: 01/18/18 16:55 Dose: 650 mg Albuterol Sulfate (Ventolin) 1 puff INH Q4HP PRN PRN Reason: Shortness Of Breath Amitriptyline HCl (Elavil) 10 mg PO HS [facility] Last Admin: 01/19/18 20:38 Dose: 10 mg Diphenhydramine HCl (Benadryl) 25 mg PO Q6HP PRN PRN Reason: Allergic Symptoms Last Admin: 01/16/18 07:11 Dose: 25 mg Diphenhydramine HCl (Benadryl) 25 mg IV Q6HP PRN PRN Reason: Allergic Symptoms Last Admin: 01/16/18 13:30 Dose: 25 mg Docusate Sodium (Colace) 100 mg PO BID [facility] Last Admin: 01/20/18 08:12 Dose: Not Given Fluticasone Propionate (Flonase) 1 spray NS DAILY [facility] Last Admin: 01/20/18 08:25 Dose: 1 spray Heparin Sodium (Porcine) (Heparin) 5,000 unit SQ Q12 [facility] Last Admin: 01/20/18 08:26 Dose: 5,000 unit Iron Carb/Multivit/Script Editor/Folic Acid (Multivitamin W/Minerals) 1 tab PO DAILY [facility] Last Admin: 01/20/18 08:26 Dose: 1 tab Ketorolac Tromethamine (Toradol) 10 mg PO Q8HP PRN PRN Reason: Pain Last Admin: 01/19/18 13:50 Dose: 10 mg Lactobacillus Rhamnosus (Culturelle) 1 cap PO MoWeFr@0900 [facility] Last Admin: 01/20/18 08:26 Dose: 1 cap Magnesium Hydroxide (Milk Of Magnesia) 30 ml PO DAILYP PRN PRN Reason: Constipation Ondansetron HCl (Zofran) 4 mg IV Q6HP PRN PRN Reason: Nausea And Vomiting Last Admin: 01/13/18 13:38 Dose: 4 mg Oxycodone HCl (Roxicodone) 2.5 - 5 mg PO Q6HP PRN PRN Reason: Pain Last Admin: 01/16/18 20:32 Dose: 2.5 mg Pantoprazole Sodium [facility]ix) [facility] Last Admin: 01/20/18 06:40 Dose: 40 mg Lactase 9000 Unit (Capsule) 2 dose PO DAILYP PRN PRN Reason: Lactose Intolerance Ocella 3 Mg-0.03 Mg (Tab) 1 dose PO DAILY [facility] Last Admin: 01/20/18 08:25 Dose: 1 dose Polyethylene Glycol (Miralax) 17 gm PO DAILYP PRN PRN Reason: Constipation Last Admin: 01/18/18 08:58 Dose: 17 gm Prednisone (Prednisone) 100 mg PO [facility] Last Admin: 01/20/18 08:26 Dose: 100 mg Promethazine HCl (Phenergan) 12.5 mg IV Q4HP PRN PRN Reason: Nausea And Vomiting Last Admin: 01/11/18 17:56 Dose: 12.5 mg Sodium Chloride (Saline Flush) 10 ml IV Q8 [facility] Last Admin: 01/20/18 06:25 Dose: 10 ml Medical - PN: A/P - Time Spent With Patient Total time spent is greater than 50% in coordination of care (as documented) at patient's floor/unit and/or counseling patient: - Narrative A/P Narrative: A/P Rhabdomyolysis/ 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 IBS on amitriptyline. dvt hep sq Regular diet Medical - PN: Qual - VTE Deep Vein Thrombosis/Pulmonary Embolism Present on Admission: No
--- NOTE | 2018-01-20 16:04 | Discharge Summary ---
Medical - DS: Prov Patient information: Note initiated : 01/20/18 at 4:02 pm Service Date, if different from initiated Date: [] Patient: Shreya Panchal 27 y/o F admitted on 01/08/18 for Rhabdo last week, labs drawn this am.. Chief Complaint: [] Date of admission: 01/08/18 20:07 Discharge date: 01/20/18 Primary care physician: PCP No Admitting clinician: Jerrell Uribe Consults: 01/08/18 18:59 Consult to Physician [CONS] Stat Comment: Consulting Provider: Jerrell Uribe Reason For Exam: Physician to Consult 01/09/18 13:13 Consult to Physician [CONS] Routine Comment: Consulting Provider: Medina Pool Reason For Exam: Physician to Consult 01/14/18 06:38 Consult to Physician [CONS] Routine Comment: Consulting Provider: Renee Everett Reason For Exam: Physician to Consult Discharging clinician: Jerrell Uribe Medical - DS: Meds - Discharge Medications Prescriptions: Pantoprazole [Protonix] 40 mg PO QAMAC #30 tab predniSONE [Prednisone] 100 mg PO QAMCC #130 tab Active and Home Medications: Home Medications Albuterol Sulfate [Ventolin] 1 puff INH Q4HP PRN 01/08/18 [History Confirmed 03/18 Last Taken 12/29/17] Amitriptyline [Elavil] 10 mg PO HS 01/08/18 [History Confirmed 01/08/18 Last Taken 01/07/18 21:00] Ethinyl Estradiol/Drospirenone [Ocella 3 mg-0.03 mg Tablet] 1 tab PO QDAY [History Confirmed 01/08/18 Last Taken 01/08/18 07:30] Fluticasone/Salmeterol [Fluticasone-Salmeterol 55-14] 1 spray NS QDAY 01/08/18 [ History Confirmed 01/08/18 Last Taken 01/08/18 08:00] L.acidoph,Paracasei, B.lactis [Probiotic] 1 each PO 3XW 01/08/18 [History Confirmed 01/08/18 Last Taken 01/06/18 07:00] Lactase [Lactaid Fast Act] 1 - 2 cap PO DAILYP PRN 01/08/18 [History Confirmed 01/08/18 Last Taken 01/07/18 15:00] Multivitamin [One Daily Multivitamin] 1 tab PO DAILY 01/08/18 [History Confirmed 01/08/18 Last Taken 01/06/18 07:00] predniSONE [Prednisone] [address] [facility] #1 tab 01/16/18 [Rx Last Taken Unknown] Medical - DS: Hosp Hospital course: maryjo Panchal is a 27 year old F with h/o IBS, on amitryptline for same, presents to the ER today at the recommendation of her PCP. 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 Her muscle aches, pains, fatigue did not go away, she has stifness in the mornings in the shoulders, neck and upper back, she has pain and weakness in both shoulders, she was finding it difficult to comb her own hair, and get dressed by self. Her symptoms got progressively worse throughout the month of November and she decided to seek help at the end of the month. Her primary care physician ordered some labs, noted that she had elevated LFTs, and also elevated CK values, she was admitted to the hospital with a diagnosis of rhabdomyolysis, her CK was around 20,000. She notes she also had a CT scan of the abdomen done the results of which she does not know. The patient was treated with fluids, CK values improved to 13,000, she felt a little bit better but the mild GI stiffness and weakness mostly present. After she was discharged from the hospital the symptoms continued and she continued to drink fluids, she did not go out in the heat. The patient had a repeat lab done which showed her CK had increased she was advised to drink fluids and recheck her CK. The patient came to live with the parents, it was noted that her repeat CK was again 18,000 and she was asked to come to the hospital for further management. The patient notes she has no difficulty in using her fingers are fine motor skills is intact the predominant problem she has is involving the shoulder region and upper back. She also has difficulty in getting up from the sitting position there is pain in both her thighs. She has noticed increase roughness in the fingertips, and some flaking of the skin around her nails. She has noticed rash on her thighs. The patient denies any fever chills headache changes in vision double vision no difficulty in swallowing the patient denies any cough no acute shortness of breath or chest pain no nausea no vomiting no acute abdominal pain no diarrhea constipation no arthralgia sites mentioned above. The patient had been camping once however notes that her symptoms predate the day of camping. The patient denies any use of oxtf-grz-wvdrtiv medications and herbal supplements for weight loss or any other purpose. The patient has been diagnosed with IBS and she takes amitriptyline for same, she also has been taking OC pills. These medications are not new. The patient takes lactase for lactic acid intolerance. The patient has a history of asthma uses albuterol as needed. The patient had a CK level of around 18,000, repeat CK checked showed CK around 16,000 she has elevated LFTs, patient is being admitted to the hospital for further evaluation and management case was reviewed with Dr. Ortega rheumatology by the ER. The patien was admitted ot the hospital for further management. 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 She had a muscle biopsy results of which are still pending. She was treated with IVF, and IV solumederol after muscle biopsy. CK has trended down, and is between 5K- 6K without IV fluids, renal functino has remained stable. After initiation of pulse steroids she has felt some imprvovement in her muscle strength. Pt is being discahrged home with 100mg prednisone x 2 more days, and then 80mg prednisone till seen by rn transfer. Dr pool helped with the muscle biopsy.'' At the time of discharge, pt is hemodynamically stable, tolerating po diet well , able to complete ADL slowly and needs help intermittently which is readily available for her. She will be discharged home with follow up in rheumatology in 2 weeks. Discharge diagnosis: Inflammatory myositis - Time Spent with Patient Total time spent providing and/or coordinating discharge services: Greater than 30 minutes Medical - DS: Exam - Constitutional Vitals: Vital Signs Temp Pulse Resp BP BP Pulse Ox 01/20/18 11:06 97.6 F 88 18 121/78 97 01/20/18 07:47 98.0 F 101 H 20 125/80 97 01/20/18 04:00 97.4 F 90 24 H 119/68 98 01/20/18 00:00 98.0 F 86 24 H 120/69 97 01/19/18 19:43 97.5 F 93 H 24 H 128/76 96 01/19/18 16:09 97.7 F 16 123/82 96 Intake and Output 01/20/18 01/20/18 01/20/18 05:59 13:59 21:59 Intake Total 725 / 725 1280 / 1280 Output Total 600 / 600 Balance 125 / 125 1280 / 1280 Intake: Oral 725 / 725 1280 / 1280 Output: Void Amount 600 / 600 Other: Meal Breakfast Percent of Meal Consumed 100% Urine Appearance Clear Urine Color Dark Yellow Urine Odor Normal Additional comments: Constitutional; Afebrile, cooperative, alert, not in distress. Respiratory system: Air Entry equal on both sides, No crackles or wheezing, no rhonchi. CVS- Rate rhythm regular, S1,S2 heard, no gallop, no rub. 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 improving proxmial muscle strength, 3-4/5 upper andl owe extremity Medical - DS: Data Labs on day of discharge: Labs from last 24 hours 01/20/18 04:15 Sodium 139 Potassium 4.1 Chloride 102 Carbon Dioxide 25 Anion Gap 12.0 BUN 11 Creatinine 0.4 L GFR Calculation 145 Glucose 79 Calcium 9.3 Total Creatine Kinase 5811 H Medical - DS: A/P - Patient/Caregiver Discharge Instructions Activity: increase activity as tolerated Diet: Regular Diet Additional Instructions: You are scheduled for an EMG with Dr. Esaon. Please take prednisoen 100mg (5 tabs of 20mg strength) daily with food for 2 more days, after which you will cut down the dose to 80mg (4 tabs of 20mg strength) till you are seen by the rn transfer Please keep your self well hydrated, If you notice blood in urine/ cola or dark coloured urine, worsening muscle strength, fever, chills or any other acute concerns go back to the ER. Take pantoprazole 40mg once daily 30mins before food. Please discuss your pending lab results/ muscle biopsy with your rn transfer , these results are not yet back. Please schedule a pulmonary function test in 2-3 weeks. Prescriptions: predniSONE [Prednisone] [address] [facility] #1 tab - Follow up Plan Follow up with: Alayna,PCP [Primary Care Provider] - Juancarlos Eason MD [Physician] - 01/28/18 1:30 pm Renee Everett MD [Physician] - 02/02/18 11:05 am Disposition: Home, Self-Care Prognosis: Good Rehab Potential: Good I certify that the patient requires SNF services: No Overall status at discharge: patient is progressing back to baseline Medical - DS: Qual - VTE Deep Vein Thrombosis/Pulmonary Embolism Present on Admission: No
== END 2018-01-20 17:35 | disposition home or self-care (01) | DRG 501 ==
LOC: ED 16:56 → MEDSUR 20:07
PROVIDERS: ADMIT Internal Medicine; ATTEND Internal Medicine